=== PATIENT | female | born 1995 | race Caucasian/White ===

== ENCOUNTER 2024-01-03 21:13 | Emergency (ER) | payer MEDICAID, SELFPAY ==
[2024-01-03 21:14] VITALS: BP 171/97; PULSE 92; RESP 16; TEMP 35.9; O2SAT 99; BMI 25.8
--- NOTE | 2024-01-03 21:27 | EX.ED.GENINJ ---
HPI <SAUL Chavez - Last Filed: 01/03/24 21:33> History of Present Illness Chief Complaint: Bite Narrative Narrative: Patient presenting today with a dog bite to her bilateral hands that she got this evening to from her neighbors dog. She reports that their dog was trying to come in her trailer and she tried pushing him out of the door when he bit her hands. Her tetanus is up-to-date. She denies any other injury. The dog is up-to-date with vaccines including rabies. [facility] <SAUL Chavez Last Filed: 01/03/24 21:33> [facility] Medical History (Updated 01/03/24 @ 21:31 by Minoo Paulino) Dog bite Home Medications amoxicillin 875 mg-potassium clavulanate 125 mg tablet 1 tab PO BID #10 tabs 01/03/24 [Rx Last Taken Unknown] Allergy/AdvReac Type Severity Reaction Status Date / Time No Known Allergies Allergy Verified 01/03/24 21:14 ROS <SAUL Chavez Last Filed: 01/03/24 21:33> ROS ED Constitutional Constitutional ED: Denies chills or fever(s) Cardiovascular Cardiovascular: Denies chest pain Respiratory/Chest Respiratory/Chest: Denies cough or dyspnea Gastrointestinal Gastrointestinal: Denies abdominal pain, nausea or vomiting Musculoskeletal Musculoskeletal: Denies arthralgias or myalgias Integumentary Reports other Details: Puncture wounds Neurologic Neurologic: Denies paresthesias EXAM <SAUL Chavez Last Filed: 01/03/24 21:33> Physical Exam Const Vital Signs: 01/03/24 21:14 Temperature 96.7 F L Temperature Source Temporal Pulse Rate 92 Respiratory Rate 16 Blood Pressure 171/97 H Blood Pressure Mean 121 Pulse Ox 99 Oxygen Delivery Method Room Air Positive well nourished, well developed and no apparent distress General Appearance ED: well developed HEENT Reports normocephalic and head/scalp atraumatic Mouth ED: Yes moist mucous membranes normal Eyes PERRL and EOMs intact bilaterally Neck full ROM and supple Chest Wall inspection of chest normal Resp normal respiratory effort and clear to auscultation bilaterally Cardio regular rate and regular rhythm GI soft to palpation, non-tender, non-distended and no masses Back/Spine normal ROM and normal to inspection Extremity normal to inspection and full ROM Extremity Narrative: 2 cm superficial linear laceration to the volar aspect of the right wrist, left second and third fingers have small puncture wounds. Full flexion and extension at the wrist, MCPs, PIP, and DIP joints of the bilateral upper extremities. Neuro oriented x3, CN's II-XII intact bilaterally, moves all extremities, no focal motor deficits and no sensory deficits noted Sensorium / Orientation: awake and alert Psych mental status grossly normal and thought process normal <Dr. Son Haddad MD - Last Filed: 01/03/24 21:38> Physical Exam Const Vital Signs: 01/03/24 21:14 Temperature 96.7 F L Temperature Source Temporal Pulse Rate 92 Respiratory Rate 16 Blood Pressure 171/97 H Blood Pressure Mean 121 Pulse Ox 99 Oxygen Delivery Method Room Air [facility] <SAUL Chavez - Last Filed: 01/03/24 21:33> [facility] Narrative Medical decision making narrative: Patient presenting today due to a dog bite that occurred this evening. She is up-to-date with tetanus. The dog is up-to-date on vaccines. She is well-appearing and in no acute distress. Wounds will be cleaned and bandaged with bacitracin ointment. She will be started on Augmentin. No suture repair is needed as the wounds are superficial. Return instructions given. She will be discharged home in stable condition and is comfortable with plan. <Dr. Son Haddad MD - Last Filed: 01/03/24 21:38> [facility] Narrative Medical decision making narrative: Patient presenting today due to a dog bite that occurred this evening. She is up-to-date with tetanus. The dog is up-to-date on vaccines. She is well-appearing and in no acute distress. Wounds will be cleaned and bandaged with bacitracin ointment. She will be started on Augmentin. No suture repair is needed as the wounds are superficial. Return instructions given. She will be discharged home in stable condition and is comfortable with plan. I have personally performed a face to face assessment of the patient and have reviewed the LISS Note. I performed a substantive portion of the visit including all aspects of the following. My perry findings include: History is patient was bit by dog. Dog immunization up-to-date. She has no allergies to antibiotics. Medical Decision Making patient has multiple scrapes and abrasions to the volar and dorsal surface of the right wrist. She has puncture wound to the left long and ring finger. The extensor commonest tendon is intact. The flexors digitorum superficialis and flexor digitorum profundus are intact. Discrimination is normal. Median, radial and ulnar function intact. Patient has puncture wounds. These will not be sutured. Patient was placed on Augmentin which is the antibiotic of choice for dog bites. Patient has been given appropriate instructions when to return. Other additions or changes: None Discharge Plan Triage Chief Complaint: Bite ED Midlevel Provider: Nahomy Hall ED Provider: Son Haddad Dx/Rx/DC Orders Clinical Impression: Dog bite Instructions: ED Animal Bite (General) Prescriptions: New amoxicillin-pot clavulanate 875-125 mg tablet 1 tab PO BID Qty: 10 0RF Activity Restrictions/Additional Instructions: Take antibiotics as directed, return for any worsening of your symptoms. Disposition Disposition: Home, Self Care
[2024-01-03] MEDS: Amox/Clavulanate 875 MG Tablet PO (21:30)
--- OUTSIDE RECORDS SUMMARY | 2024-01-03 21:38 | XMS RPT_ITS | CCD ---
Author Name Unknown Address [address] [place] [address] Organization [facility] Care Team Providers Care Leadership Development Instructor Name Role Phone NO, PHYSICIAN Primary Care Unavailable EMILIANO ESQUIVEL Attending Rodger leal No, Physician Primary Care Provider Unavailabl e Physician, No Pcp Primary Care Provider UnavailGARRETT Antonio Attending Unavailable PHYSICIAN, NO PCP Primary Care Unavailable PHYSICIAN, NO PCP Primary Care Unavailable MARCELLUS IVORY Attending Unavailable Medications Current Medications Medication Drug Class(es) Dates Sig (Normalized) Sig (Original) ibuprofen 600 mg oral tablet (1 source) Nonsteroidal Anti-inflammatory Drug Start: 09-22-2022 End: 09-29-2022 take 1 tablet by mouth every six hours as needed ibuprofen (ADVIL,MOTRIN) 600 mg tablet Take 1 tablet (600 mg total) by mouth every 6 (six) hours if needed for mild pain or moderate pain for up to 7 days. 28 tablet 0 09/22/2022 09/29/2022 Active metroNIDAZOLE 500 mg oral tablet (1 source) Nitroimidazole Antimicrobial Start: 09-22-2022 End: 09-29-2022 take 1 tablet by mouth twice daily metroNIDAZOLE (FLAGYL) 500 mg tablet Take 1 tablet (500 mg total) by mouth 2 (two) times a day for 7 days. Do not use mouth wash or consume alcohol until 48 hours after last dose 14 each 0 09/22/2022 09/29/2022 Active 12 hr pseudoephedrine hydrochloride 120 mg extended release oral tablet (1 source) alpha-Adrenergic Agonist Start: 09-22-2022 End: 09-22-2023 take 1 tablet by mouth every hour pseudoephedrine (SUDAFED) 120 mg 12 hr tablet Take 1 tablet (120 mg total) by mouth every 12 (twelve) hours. Do not crush, chew, or split. 14 each 0 09/22/2022 09/22/2023 Active Completed/Discontinued Medications Medication Drug Class(es) Dates Sig (Normalized) Sig (Original) acetaminophen 325 mg / HYDROcodone bitartrate 5 mg oral tablet (1 source) Opioid Agonist Start: 08-10-2016 End: 01-18-2021 take 1 tablet by mouth every six hours as needed for pain HYDROcodone-aceta minophen (NORCO) 5-325 mg per tablet TAKE 1 TAB BY MOUTH EVERY 6 HOURS FOR 3 DAYS NEEDED FOR PAIN 0 08/10/2016 01/18/2021 Discontinued cephalexin 500 mg oral capsule (2 sources) Cephalosporin Antibacterial Start: 01-18-2021 End: 01-28-2021 cephALEXin (KEFLEX) capsule 500 mg 1 ml ketorolac tromethamine 30 mg/ml injection (1 source) Nonsteroidal Anti-inflammatory Drug, Cyclooxygenase Inhibitor Start: 09-22-2022 End: 09-22-2022 ketorolac (TORADOL) injection 30 mg lidocaine 40 mg/ml topical cream (1 source) Antiarrhythmic, Amide Local Anesthetic Start: 01-18-2021 End: 01-18-2021 lidocaine (LMX) 4 % cream 50 ml magnesium sulfate 40 mg/ml injection (1 source) Start: 09-22-2022 End: 09-22-2022 magnesium sulfate 2 gram/50 mL (4 %) IVPB 2 g naproxen 500 mg oral tablet (1 source) Nonsteroidal Anti-inflammatory Drug Start: 08-10-2016 End: 01-18-2021 take 1 tablet by mouth twice daily as needed for pain naproxen (NAPROSYN) 500 MG tablet TAKE 1 TAB BY MOUTH TWICE A DAY FOR 10 DAYS NEEDED FOR PAIN 0 08/10/2016 01/18/2021 Discontinued 1000 ml sodium chloride 9 mg/ml injection (1 source) Start: 09-22-2022 End: 09-22-2022 sodium chloride 0.9 % bolus 1,000 mL sulfamethoxazole 800 mg / trimethoprim 160 mg oral tablet (2 sources) Dihydrofolate Reductase Inhibitor Antibacterial, Sulfonamide Antimicrobial Start: 01-18-2021 End: 01-18-2021 sulfamethoxazole- trimethoprim (BACTRIM DS,SEPTRA DS) 800-160 mg per tablet 1 tablet Problems Active Problems Problem Classification Problem Date Documented Date Episodic/Chronic E Codes: Natural/environment (1 source) Bitten by dog, initial encounter; Translations: [Bitten by dog, initial encounter] Onset: 01-11-2023 Episodic Other ear and sense organ disorders (1 source) Bilateral earache; Translations: [Otalgia, bilateral] Episodic Other nutritional; endocrine; and metabolic disorders (1 source) Hypomagnesemia; Translations: [Hypomagnesemia] Chronic Other nutritional; endocrine; and metabolic disorders (1 source) Hypomagnesemia; Translations: [Hypomagnesemia] Onset: 09-22-2022 Chronic Skin and subcutaneous tissue infections (1 source) Abscess; Translations: [Abscess] Episodic Spondylosis; intervertebral disc disorders; other back problems (1 source) Acute low back pain; Translations: [Acute right-sided low back pain without sciatica] Episodic Substance-related disorders (2 sources) Polysubstance abuse ; Translations: [Other psychoactive substance abuse, uncomplicated] Onset: 09-22-2022 Chronic Unclassified (1 source) Patient encounter status; Translations: [Encounter for incision and drainage procedure] Unclassified (1 source) Low back pain, unspecified; Translations: [Low back pain, unspecified] Onset: 09-22-2022 Past or Other Problems Problem Classification Problem Date Documented Da te Episodic/Chronic Abdominal pain (2 sources) Lower abdominal pain; Translations: [Lower abdominal pain, unspecified] Onset: 09-22-2022 Episodic Bacterial infection; unspecified site (1 source) Other specified bacterial agents as the cause of diseases classified elsewhere; Translations: [Other specified bacterial agents as the cause of diseases classified elsewhere] Onset: 09-22-2022 Episodic Inflammatory diseases of female pelvic organs (2 sources) Bacterial vaginosis; Translations: [Acute vaginitis] Onset: 09-22-2022 Episodic Other ear and sense organ disorders (1 source) Otalgia, bilateral; Translations: [Otalgia, bilateral] Onset: 09-22-2022 Episodic Results Test Name Value Interpretation Reference Range Facil ity Vital Signs Date Time Vital Sign Value Performing Clinician Marifer aguilar 09-22-2022 22:15-0500 Diastolic blood pressure 86 mm[Hg] Garrett Becerra MD Work Phone: [facility] 09-22-2022 22:15-0500 Heart rate 85 /min Garrett Becerra MD Work Phone: [facility] 09-22-2022 22:15-0500 SaO2% (BldA) [Mass fraction] 100 % Garrett Becerra MD Work Phone: [facility] 09-22-2022 22:15-0500 Systolic blood pressure 127 mm[Hg] Garrett Becerra MD Work Phone: [facility] 09-22-2022 20:32-0500 Respiratory rate 17 /min Garrett Becerra MD Work Phone: [facility] 09-22-2022 19:11-0500 Body height 175.3 cm Garrett Becerra MD Work Phone: [facility] 09-22-2022 19:11-0500 Body mass index (BMI) [Ratio] 20.67 kg/m2 Garrett Becerra MD Work Phone: [facility] 09-22-2022 19:11-0500 Body weight 63.5 kg Garrett Becerra MD Work Phone: [facility] 09-22-2022 17:24-0500 Body temperature 98.6 [degF] Garrett Becerra MD Work Phone: [facility] 01-18-2021 20:05-0500 BMI (Body Mass Index) 19.37 kg/m2 [facility] 01-18-2021 20:05-0500 Body Temperature 98.2 [degF] [facility] 01-18-2021 20:05-0500 Body [facility] 61.24 [facility] 01-18-2021 20:05-0500 BP Diastolic 91 mm[Hg] [facility] 01-18-2021 20:05-0500 BP Systolic 138 mm[Hg] [facility] 01-18-2021 20:05-0500 Height 177.8 cm Emiliano Esquivel [facility] 01-18-2021 20:05-0500 Pulse (Heart Rate) 100 /min Emiliano Esquivel [facility] 01-18-2021 20:05-0500 Pulse Oximetry 99 % Emiliano Esquivel [facility] 01-18-2021 20:05-0500 Respiratory Rate 18 /min Emilianopablo Esquivel [facility] Encounters Encounter Date Encounter Type Care Provider Facility Start: 01-11-2023 End: 01-12-2023 Emergency department patient visit NO PCP PHYSICIAN [facility] Start: 09-22-2022 End: 09-23-2022 Emergency department patient visit GARRETT BECERRA [facility] Start: 09-22-2022 End: 09-22-2022 Emergency department patient visit Garrett Becerra MD Work Phone: [facility] Emergency Room Procedures Date Procedure Procedure Detail Performing Clinician Start: 09-22-2022 Culture bacterial quanttative colony count urine Arben HUGHES Work Phone: Start: 09-22-2022 Drug tst prsmv instr mnt chem analyzers pr date Garrett Becerra MD Work Phone: Start: 09-22-2022 Ct abdomen & pelvis w/o contrast material Arben HUGHES Work Phone: Start: 09-22-2022 CBC W Auto Different ial panel - Blood Arben HUGHES Work Phone: Start: 09-22-2022 Comprehensive metabo lic panel Arben HUGHES Work Phone: Start: 09-22-2022 Ethanol [Mass/volume ] in Serum or Plasma Garrett Becerra MD Work Phone: Start: 09-22-2022 Iaadiadoo trichomona s vaginalis Arben HUGHES Work Phone: Plan of Treatment Date Care Activity Detail Author Start: 03-27-2024 DTaP,Tdap,and Td Vaccines (2 - Td or Tdap) DTaP,Tdap,and Td Vaccines (2 - Td or Tdap) [facility] Start: 09-22-2022 Adolescent depression screening assessment Depression Screening [facility] Start: 09-22-2022 Hepatitis C screening Hepatitis C Screening [facility] Start: 09-22-2022 HIV screening HIV Screening [facility] Start: 09-22-2022 Social Influencers of Health Screening Social Influencers of Health Screening [facility] Start: 07-18-2022 Influenza vaccination Influenza Vaccine (#1) [facility] Start: 01-22-2021 End: 01-22-2021 Office Visit 01/22/2021 Office Visit Primary Care Keturah Whitley MD [address] [place] [address] [phone] [facility] [place] Start: 07-18-2020 Influenza vaccination given Sequential Influenza Vaccine (#1) [facility] Start: 01-15-2017 Screening for malignant neoplasm of cervix Cervical Cancer Screening: Pap Smear [facility] Start: 01-15-2014 Hepatitis C antibody, confirmatory test Hepatitis C Screening [facility] Start: 2012 COVID-19 Vaccine (1 of 2) COVID-19 Vaccine (1 of 2) [facility] Start: 01-15-2011 HIV screening HIV Screening [facility] Start: 2008 Adolescent depression screening assessment Depression Screening (PHQ9) [facility] Start: 01-15-2007 HPV Vaccines (1 - 2-dose series) HPV Vaccines (1 - 2-dose series) [facility] Start: 01-15-2007 Vaccination for human papillomavirus HPV Vaccines (1 - 2-dose series) [facility] Start: 01-15-1999 History and physical examination, annual for health maintenance Wellness Visit [facility] Start: 1996 COVID-19 Vaccine (#1) COVID-19 Vaccine (#1) [facility] Start: 1996 Hepatitis B Vaccines (1 of 3 - 3-dose series) Hepatitis B Vaccines (1 of 3 - 3-dose series) [facility] Start: 1996 Screening for malignant neoplasm of cervix Pap Smear [facility] Start: 1996 Tetanus vaccination Tetanus: Every 10yrs [facility] Bacteria identified in Urine by Culture Culture urine Microbiology STAT 09/22/2022 8:[address] [facility] End: 09-22-2022 Neisseria gonorrhoeae DNA [Presence] in Urine by MOE with probe detection [facility] Work Phone: Immunizations Immunization Date Immunization Notes Care Provider Filipe jade 08-05-2013 influenza virus vacc ine, unspecified formulation Garrett Becerra MD Work Phone: [facility] Payers Date Payer Category Payer Unknown [id number] 1995 Unknown [id number] Social History Date Type Detail Facility Start: 01-18-2021 End: 09-22-2022 Tobacco smoking status NHIS Never smoker [facility] Start: 01-18-2021 Tobacco use and exposure Current use r [facility] History of tobacco use Chews Tobacco [facility] Start: 01-18-2021 Alcohol intake Current non-dr wrinkle chaser of alcohol (finding) [facility] Start: 1995 Sex Assigned At Not on file [facility] Start: 09-12-2022 End: 09-22-2022 Exposure to SARS-CoV-2 (event) Not sure [facility] Start: 09-22-2022 Tobacco use and exposure Smokeless t obacco non-user [facility] Start: 09-22-2022 Alcohol intake Lifetime non-d johnna (finding) [facility] History of Present illness Narrative 09-22-2022 Garrett Becerra MD - 09/22/2022 5:20 PM EST Note Date & Type Note Facility 09-22-2022 History of Presen t illness Narrative [facility] Emergency Department Note History of Present Illness Ho Simms is a 27 y.o. female presenting for headache, bilateral ear pain, neck pain, back pain. Duration 3 days. States she was carrying a heavy backpack, and when she went to put it down she began having pain. Pain has been constant and severe. In triage, she apparently reported flank pain and abdominal pain with history of kidney stones. She does acknowledge history of kidney stones and says this pain is more severe. She acknowledges pain to the right lower back wrapping around to the left lower abdomen. She denies fevers or chills. She denies cough or other URI symptoms. She denies nausea, vomiting, diarrhea. She denies any urinary symptoms. Prior History History reviewed. No pertinent past medical history. History reviewed. No pertinent surgical history. No family history on file. Social History Tobacco Use Smoking status: Never Smokeless tobacco: Never Vaping Use Vaping Use: Never used Substance Use Topics Alcohol use: Never Drug use: Never Review of Systems Constitutional: [No fever, no chills, no fatigue] ENT: [No sore throat, no congestion] Eyes: [No visual disturbance, no eye pain] Cardiovascular: [No chest pain, no palpitations] Pulmonary: [No dyspnea, no cough] GI: [No abdominal pain, no nausea, no vomiting, no diarrhea, no bloody stools] : [No difficulty voiding, no hematuria, no dysuria, no urgency] Skin: [No rash, no wounds, no change in color] Musculoskeletal: [No back pain, no neck pain, no injury to extremities] Hematologic: [No abnormal bleeding/bruising] Neurologic: [No headache, no dizziness, no focal weakness, no numbness, no tingling] Physical Exam ED Triage Vitals [09/22/22 1724] Temp Heart Rate Resp BP 37 C (98.6 F) 100 20 (!) 147/102 SpO2 Temp Source Heart Rate Source Patient Position 100 % Oral -- -- BP Location FiO2 (%) -- -- Body mass index is 20.67 kg/m . Constitutional: [Awake and alert, well nourished, non-toxic] Head: [Normocephalic, atraumatic] Eyes: [EOMI, Pupils equal, no scleral icterus] Ears: [Hearing grossly intact, no external deformities] Nose: [Normal in appearance, no rhinorrhea or epistaxis] Mouth: [Moist mucous membranes, oropharynx clear without exudates] Neck: [Supple, trachea midline, no rigidity] Cardiovascular: [Regular rate and rhythm, no murmurs/rubs/gallops, normal peripheral pulses] Respiratory: [Normal respiratory effort, lungs clear bilaterally, no wheezes/rales/rhonchi] Gastrointestinal: [Abdomen soft, non-tender, non-distended] Musculoskeletal: [No obvious deformities, no peripheral edema/swelling] Neurologic: [Awake, alert, answers questions appropriately without slurred speech. GCS 15. No focal motor or sensory deficits.] Skin: [Warm, dry. No rash or wound. No pallor, cyanosis, or jaundice.] Psychiatric: [Normal mood and affect] Results & Interpretations Pulse Ox Interpretation: Oxygen saturation is 100% which is normal. Interpreted by myself. Labs Reviewed RAPID BACTERIAL VAGINOSIS SCREEN - Abnormal Result Value Bacterial Vaginosis Screen Positive (*) URINALYSIS WITH MICROSCOPIC REFLEX CULTURE - Abnormal Color, Urine Yellow Clarity, Urine Hazy (*) Specific Hulen Urine 1.015 pH, Urine 6.0 Leukocytes, Urine 25 (*) Nitrite, Urine Negative Protein, Urine Negative Glucose, Urine Normal Ketones, Urine 5 (*) Urobilinogen, Urine Normal Blood, Urine 2+ (*) Bilirubin, Urine Negative RBC, Urine 4 WBC, Urine 4 Bacteria, Urine Rare (*) Squamous Epithelial, Urine Many (*) Mucus, UA Rare (*) BASIC METABOLIC PANEL - Abnormal Sodium 131 (*) Potassium 3.8 Chloride 98 CO2 26 Anion Gap 7 Glucose 137 (*) BUN 10 Creatinine 0.79 eGFR 106 BUN/Creatinine Ratio 12.7 Calcium 8.9 MAGNESIUM - Abnormal Magnesium 1.5 (*) CBC WITH AUTO DIFFERENTIAL - Abnormal WBC 6.7 RBC 4.87 Hemoglobin 14.3 Hematocrit 41.6 MCV 85.4 MCH 29.4 MCHC 34.4 RDW 11.9 Platelets 199 MPV 9.6 Neutrophils Relative 82.1 (*) Lymphocytes Relative 4.6 (*) Monocytes Relative 12.0 Eosinophils Relative 0.4 Basophils Relative 0.6 Immature Granulocytes Relative 0.3 Neutrophils Absolute 5.53 Lymphocytes Absolute 0.31 (*) Monocytes Absolute 0.81 Eosinophils Absolute 0.03 Basophils Absolute 0.04 Immature Granulocytes Absolute 0.02 DRUG ABUSE SCREEN 8A PANEL, URINE - Abnormal Amphetamine Screen, Ur Detected (*) Barbiturate Screen, Ur Not Detected Benzodiazepine Screen, Ur Not Detected Cocaine Screen, Ur Detected (*) Opiate Screen, Ur Not Detected Cannabinoid (THC) Screen, Ur Detected (*) Oxycodone Screen, Ur Not Detected Methadone Screen, Urine Not Detected Narrative: The following detection limits are used for the urine drugs of abuse: Amphetamine 1000 ng/mL Barbiturate 200 ng/mL Benzodiazepine 200 ng/mL Cannabinoids 50 ng/mL Cocaine 300 ng/mL Methadone 300 ng/mL Opiates 300 ng/mL Oxycodone 100 ng/mL Testing is for screening purposes only and should not be used in non-medical determinations. Confirmatory testing is available on request. TRICHOMONAS VAGINALIS RNA, QUALITATIVE - Normal Trichomonas Negative LIPASE - Normal Lipase 35 HEPATIC FUNCTION PANEL - Normal Total Protein 6.8 Albumin 4.4 Total Bilirubin 0.4 Bilirubin, Direct 0.1 Bilirubin, Indirect 0.3 ALT (SGPT) 16 AST (SGOT) 19 Alkaline Phosphatase 48 HCG, SERUM, QUALITATIVE - Normal hCG Qual Negative ETHANOL - Normal Ethanol Level <10 CHLAMYDIA TRACHOMATIS AND NEISSERIA GONORRHOEAE MOLECULAR STUDY, UROGENITAL CULTURE URINE CBC AND DIFFERENTIAL Narrative: The following orders were created for panel order CBC and differential. Procedure Abnormality Status --------- ------ CBC auto differential[[id number]] Abnormal Final result Please view results for these tests on the individual orders. CT Abdomen Pelvis wo Contrast Final Result Nonobstructive constipation Hyperdense material layering within the stomach, correlate with any ingested material whether contrast or radiodense MILK OF MAGNESIA or other substance, this is indeterminate Bilateral kidneys demonstrate no hydronephrosis or stones. Negative for free fluid or free air. -------- FINAL REPORT -------- Dictated By: Caleb Enriquez Dictated Date: 09/22/2022 19:07 Assigned Physician: Caleb Enriquez Reviewed and Electronically Signed By: Caleb Enriquez Signed Date: 09/22/2022 19:10 Workstation ID: [id number] Transcribed By: Self Edit Transcribed Date: 09/22/2022 19:07 I have reviewed the results of labs, imaging, and other diagnostic studies performed during this evaluation. All imaging independently reviewed by myself, and I agree with the radiologist interpretation. ED Course & Medical Decision Making Prior medical records: Reviewed Vitals Trend: Vitals: 09/22/22 19109/22/[id number]/22/[id number]/22/225 BP: (!) 137/98 129/82 127/86 Pulse: 86 96 85 Resp: 21 17 Temp: TempSrc: SpO2: 100% 97% 100% Weight: 63.5 kg (140 lb) Height: 1.753 m (69 ) ED Administered Meds: Medications sodium chloride 0.9 % bolus 1,000 mL (0 mL intravenous Stopped 09/22/222220) ketorolac (TORADOL) injection 30 mg (30 mg intravenous Given 09/22/221918) magnesium sulfate 2 gram/50 mL (4 %) IVPB 2 g (0 g intravenous Stopped 09/22/222220) Procedures: None Critical Care Time: None MDM: Upon triage, patient was documented as chief complaint of abdominal pain. On my interview, she first complained of pain in both of her ears, then pain radiating down her neck and back. She does acknowledge pain to the right lower back and indicates that it wraps around the left side of her back into the left lower quadrant of her abdomen. I noticed that pelvic swabs have been ordered prior to my assessment, and queried the patient about any vaginal discharge, itch, odor or abnormal bleeding. She denies these. According to triage provider, she or her mother expressed some concern for STI in triage. On labs, magnesium is low at 1.5. Magnesium sulfate ordered. She was also given fluid bolus and IV Toradol. She did seem to have an improvement of her pain on reassessment. Urine drug screen is positive for amphetamine, cocaine, cannabinoids. She is positive for bacterial vaginosis as well. CT shows nonobstructive constipation, radiodense material in the stomach which likely relates to OTC milk of magnesia use. Otherwise no acute findings. I did not feel that hospitalization was indicated, and patient was comfortable with plan for discharge home. Prescribed Flagyl for bacterial vaginosis. Prescribed Sudafed as she continues to complain of some pressure in both ears and also has some sinus congestion. Prescribed Motrin to take as needed for pain. Discussed return precautions. I have strongly advised her to establish primary care for follow-up. Disposition Discharge ED Prescriptions Medication Sig Dispense Start Date End Date Auth. Provider metroNIDAZOLE (FLAGYL) 500 mg tablet Take 1 tablet (500 mg total) by mouth 2 (two) times a day for 7 days. Do not use mouth wash or consume alcohol until 48 hours after last dose 14 each 09/22/2022 09/29/2022 Garrett Becerra MD pseudoephedrine (SUDAFED) 120 mg 12 hr tablet Take 1 tablet (120 mg total) by mouth every 12 (twelve) hours. Do not crush, chew, or split. 14 each 09/22/2022 09/22/2023 Garrett Becerra MD ibuprofen (ADVIL,MOTRIN) 600 mg tablet Take 1 tablet (600 mg total) by mouth every 6 (six) hours if needed for mild pain or moderate pain for up to 7 days. 28 tablet 09/22/2022 09/29/2022 Garrett Becerra MD Impression Final diagnoses: [F19.10] Polysubstance abuse (CMS/[facility]) [M54.50] Acute right-sided low back pain without sciatica [R10.30] Lower abdominal pain [N76.0, B96.89] Bacterial vaginosis [H92.03] Otalgia of both ears [E83.42] Hypomagnesemia Garrett Becerra MD 09/22/22 1838 Garrett Becerra MD 09/22/22 2245 documented in this encounter [facility] Evaluation note Note Date & Type Note Facility documented in this encounter [facility] Discharge instructions Attachments Note Date & Type Note Facility Hospital Discharge instructions The following attachments cannot be sent through Care Everywhere.Substance Use Disorder ([place])Bacterial Vaginosis ([place]an)documented in this encounter 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 Advance Directives and Livin g Will 01/18/2021 8:38 PM Hospital Course Note EMERGENCY DEPARTMENT DISCHAR GE SUMMARY PATIENT NAME:HO SIMMS MRN: ([id number] AGE: 23 Years SEX: Female PHONE:[phone] DOS: 06/08/2018 4:31 PM : 1995 ATTENDING PHYSICIAN:Alice Reese CNP PCP: Physician, PCP Unknown CHIEF COMPLAINT: Head Lice Allergies NKA Problems Active MRSA infection (methicillin-resistant Staphylococcus aureus) (06/17/2014) No current problems or disability DISCHARGE DIAGNOSIS: DISCHARGE INSTRUCTIONS: Blank Instruction (Custom); Lice, Adult ED PHYSICIAN DOCUMENTATION: DISPOSITION: Time of Departure From ER 06/08/2018 17:31 Discharge/Transfer From ER Home 01 MEDICATION LISTS: CURRENT MEDICATION LIST etonogestrel (Implanon 68 mg subcutaneous implant) 1 Each Subcutaneous One Time Only. ibuprofen spinosad topical (spinosad topical 0.9% suspension) 1 Application Topical One Time Only. Apply to dry scalp and hair. Wash off after 10 minutes.. Refills: 0. MEDICATIONS GIVEN DURING MEDICAL VISIT None LAB RESULTS: RADIOLOGY: FOLLOW UP: FOLLOW-UP LISS (more content not included)... Note EMERGENCY DEPARTMENT DISCHAR GE SUMMARY PATIENT NAME:HO SIMMS MRN: [id number] AGE: 24 Years SEX: Female PHONE:[phone] DOS: 05/07/2019 12:15 PM : 1995 ATTENDING PHYSICIAN:Yohannes Carrion DO PCP: Physician, No PCP CHIEF COMPLAINT: social issues Allergies NKA Problems Active No current problems or disability DISCHARGE DIAGNOSIS: DISCHARGE INSTRUCTIONS: Work Release (CO-W) [place] (Custom); Blank Instruction (CUSTOM) ED PHYSICIAN DOCUMENTATION: History of Present Illness The patient is a 24-year-old female with no significant medical problems who presents for evaluation of her Nexplanon device. The patient states that she had this placed 3 years ago. She reports about 3 days ago at work she lifted something and the edge of it hit her arm. She was concerned that it may have moved it or broke it. [facility] an appointment with [facility] for May 11 to have it removed but was concerned and wanted it evaluated today. Social history: Nonsmoker Medical De (more content not included)... Discharge Instructions * Discharge Instr - Care Coordination* Priyanka Banda RN - 01/18/2021 8:57 PM EST We made a new patient appointment for you on FridayJanuary 22 at 11:00 am with Keturah Whitley MD Family Medicine [facility] [place] [address] [place] [id number] Please arrived 15 minute early, If your unable to make the appointment, please call and reschedule. * Additional Instructions* Emiliano Esquivel MD - 01/18/2021 We made a new patient appointment for you on FridayJanuary 22 at 11:00 am with Misael Amaro Medicine [facility] [place] [address] [id number] Please arrived 15 minute early, If your unable to make the appointment, please call and reschedule. Please follow up with your family doctor or one of your choosing. You may find a provider through the [facility] Physician Referral Service by calling [phone]) or by visiting [email or web address] Thank you for allowing us the opportunity to provide you with Emergency Care today. Follow up as discussed during your stay with your doctor or referral. This information is included in your discharge paperwork. Appropriate followup is essential in your continued care after today's visit. If you had any diagnostic studies ( Labs or Xray's, CAT scan, Ultrasound ) have your PCP (Primary Care Physician) review them with you since there may be results that require further follow up or investigation. Return to the Emergency Department at any point with worsening condition, change in symptoms, new symptoms or concerns. The physician and staff of the Emergency Department would like to thank you for choosing our facility for your health care needs. Our goal is to provide exceptional service. You may be receiving a survey in the mail following your visit. Because your feedback is very important to us, we hope you will take the time to complete and return the survey. If for any reason, you feel that you cannot rateus VERY GOOD or 5 for the service you received today, please let us know prior to your discharge. We are here 24 hours a day, 7 days a week, and are always here for you. * Attachments The following attachments cannot be sent through Care Everywhere. * Abscess: Skin ([place]) documented in this encounter Assessments Diagnosis Abscess- Primary Cellulitis and abscess of unspecified site Encounter for incision and drainage procedure Additional Source Comments INFORMATION SOURCE (unrecogn ized section and content) DATE CREATED AUTHOR AUTHOR'S ORGANIZ ATION 01/25/2021 [facility] DATE CREATED AUTHOR AUTHOR'S ORGANIZ ATION 01/12/2023 [facility] Reason for Visit (unrecogniz ed section and content) Reason Comments Abdominal Pain Left flank pain for few days urinary frequency Faith Draper RN - 01/18/2021 9:29 PM Melissa Kemp RN - 01/18/2021 8:03 PM EST ED Notes (unrecognized secti on and content) Wound covered with telfa, bandaid, and coban. Spoke to patient about wound care, she verbalizes understanding. Veralizes understanding of treatment and follow up care including antibiotic use. States has had multiple abscesses and states had on the leg from recent tattoo. Pt reports abscess to left arm. Pt with red raised area to left elbow and redness around area. documented in this encounter Ordered Prescriptions (unrec ognized section and content) Scheduled Active and Recently Administ ered Medications (unrecognized section and content) Care Teams (unrecognized sec tion and content) FOR RECORDS PERTAINING TO PATIENTS WHO ARE OR HAVE BEEN ENROLLED IN A CHEMICAL DEPENDENCY/SUBSTANCEABUSE PROGRAM, SOME INFORMATION MAY BE OMITTED. This clinical summary was aggregated from multiple sources. Caution should be exercised in using it in the provision of clinical care. This summary normalizes information from multiple sources, and as a consequence, information in this document may materially change the coding, format and clinical context of patient data. In addition, data may be omitted in some cases. CLINICAL DECISIONS SHOULD BE BASED ON THE PRIMARY CLINICAL RECORDS. [facility] [employer] provides no warranty or guarantee of the accuracy or completeness of information in this document.
[2024-01-03 21:40] VITALS: BP 138/98; PULSE 78; RESP 16; TEMP 35.9; O2SAT 99
== END 2024-01-03 21:41 | disposition home or self-care (01) ==
LOC: ED 21:35
PROVIDERS: Emergency Provider Emergency Medicine; Visit Provider Emergency Medicine
DX: S60.811A Abrasion of right wrist, initial encounter (principal); S61.233A Puncture wound without foreign body of left middle finger without damage to nail, initial encounter; S61.231A Puncture wound without foreign body of left index finger without damage to nail, initial encounter; W54.0XXA Bitten by dog, initial encounter; Y92.029 Unspecified place in mobile home as the place of occurrence of the external cause
CPT/HCPCS: 99282

== ENCOUNTER 2025-08-20 23:35 | Outpatient (CLI) | payer BC, SELFPAY ==
--- OUTSIDE RECORDS SUMMARY | 2025-08-20 23:52 | XMS RPT_ITS | CCD ---
Author Organization [facility] Informreplaced by [facility] [employer]PERATIONS INSPECTOR [facility] Care Team Providers Care Llama Farmer Name Role Phone NO, PHYSICIAN Primary Care Unavailable EMILIANO ESQUIVEL Attending Rodger leal No, Physician Primary Care Provider Unavailabl e Physician, No Pcp Primary Care Provider UnavailGARRETT Antonio Attending Unavailable PHYSICIAN, NO PCP Primary Care Unavailable PHYSICIAN, NO PCP Primary Care Unavailable MARCELLUS IVORY Attending Unavailable DARLEEN, García Primary Care Unavailable Son Haddad Attending Unavailable Medications Current Medications Medication Drug Class(es) Dates Sig (Normalized) Sig (Original) amoxicillin 875 mg / clavulanate 125 mg oral tablet (1 source) Penicillin-class Antibacterial Start: 01-03-2024 take 1 tablet by mouth twice daily Amoxicillin-Pot Clavulanate Active 1 TABLET PO TWICE A DAY January 03, 2024 12:00am ibuprofen 600 mg oral tablet (1 source) [...] DS) 800-160 mg per tablet 1 tablet Start: 01-18-2021 End: 01-28-2021 take 1 tablet by mouth twice daily sulfamethoxazole-trimethoprim (BACTRIM DS,SEPTRA DS) 800-160 mg per tablet Take 1 (one) tablet by mouth 2 (two) times a day for 20 doses . 20 tablet 0 01/18/2021 01/28/2021 Active traMADol hydrochloride 50 mg oral tablet (1 source) Opioid Agonist Start: 08-14-2016 End: 01-18-2021 take 1 tablet by mouth every six hours as needed traMADol (ULTRAM) 50 mg tablet Take 1 tablet (50 mg total) by mouth every 6 (six) hours as needed for pain. 20 tablet 0 08/14/2016 01/18/2021 Discontinued Problems Active Problems Problem Classification Problem Date Documented Date Episodic/Chronic E Codes: Natural/environment (2 sources) Bitten by dog, initial encounter; Translations: [Dog bite - wound] Onset: 01-11-2023 01-03-2024 Episodic Open wounds of extremities (1 source) Open bite of right hand, initial encounter; Translations: [Open bite of right hand, initial encounter] Onset: 01-06-2024 Episodic Other ear and sense organ disorders [...] Results Test Name Value Interpretation Reference Range Facility Emergency Department Summary on 01-03-2024 Emergency Department Summary [facility] Medical Records Department [address] [place] [address] Emergency Department Summary 01/03/24 MR#: [id number] Acct: [id number] Name: HO SIMMS Rep #: [id number] : 1995 28 From: Son Haddad MD PCP: Status:REG ER Location: ED HPI History of Present Illness Chief Complaint: Bite Narrative Narrative: Patient presenting today with a dog bite to her bilateral hands that she got this evening to from her neighbors dog. She reports that their dog was trying to come in her trailer and she tried pushing him out of the door when he bit her hands. Her tetanus is up-to-date. She denies any other injury. The dog is up-to-date with vaccines including rabies. [facility] Medical History (Updated 01/03/24 @ 21:31 by Minoo Paulino) Dog bite Home Medications amoxicillin 875 mg-potassium clavulanate 125 mg tablet 1 tab PO BID #10 tabs 01/03/24 [Rx Last Taken Unknown] Allergy/AdvReac Type Severity Reaction Status Date / Time No Known Allergies Allergy Verified 01/03/24 21:14 ROS ROS ED Constitutional Constitutional ED: Denies chills or fever(s) Cardiovascular Cardiovascular: Denies chest pain Respiratory/Chest Respiratory/Chest: Denies cough or dyspnea Gastrointestinal Gastrointestinal: Denies abdominal pain, nausea or vomiting Musculoskeletal Musculoskeletal: Denies arthralgias or myalgias Integumentary Reports other Details: Puncture wounds Neurologic Neurologic: Denies paresthesias EXAM Physical Exam Const Vital Signs: 01/03/24 21:14 Temperature 96.7 F L Temperature Source Temporal Pulse Rate 92 Respiratory Rate 16 Blood Pressure 171/97 H Blood Pressure Mean 121 Pulse Ox 99 Oxygen Delivery Method Room Air Positive well nourished, well developed and no apparent distress General Appearance ED: well developed HEENT Reports normocephalic and head/scalp atraumatic Mouth ED: Yes moist mucous membranes normal Eyes PERRL and EOMs intact bilaterally Neck full ROM and supple Chest Wall inspection of chest normal Resp normal respiratory effort and clear to auscultation bilaterally Cardio regular rate and regular rhythm GI soft to palpation, non-tender, non-distended and no masses Back/Spine normal ROM and normal to inspection Extremity normal to inspection and full ROM Extremity Narrative: 2 cm superficial linear laceration to the volar aspect of the right wrist, left second and third fingers have small puncture wounds. Full flexion and extension at the wrist, MCPs, PIP, and DIP joints of the bilateral upper extremities. Neuro oriented x3, CN's II-XII intact bilaterally, moves all extremities, no focal motor deficits and no sensory deficits noted Sensorium / Orientation: awake and alert Psych mental status grossly normal and thought process normal Physical Exam Const Vital Signs: 01/03/24 21:14 Temperature 96.7 F L Temperature Source Temporal Pulse Rate 92 Respiratory Rate 16 Blood Pressure 171/97 H Blood Pressure Mean 121 Pulse Ox 99 Oxygen Delivery Method Room Air HAWA SHAIKH MDM Narrative Medical decision making narrative: Patient presenting today due to a dog bite that occurred this evening. She is up-to-date with tetanus. The dog is up-to-date on vaccines. She is well-appearing and in no acute distress. Wounds will be cleaned and bandaged with bacitracin ointment. She will be started on Augmentin. No suture repair is needed as the wounds are superficial. Return instructions given. She will be discharged home in stable condition and is comfortable with plan. MDM MDM Narrative Medical decision making narrative: Patient presenting today due to a dog bite that occurred this evening. She is up-to-date with tetanus. The dog is up-to-date on vaccines. She is well-appearing and in no acute distress. Wounds will be cleaned and bandaged with bacitracin ointment. She will be started on Augmentin. No suture repair is needed as the wounds are superficial. Return instructions given. She will be discharged home in stable condition and is comfortable with plan. I have personally performed a face to face assessment of the patient and have reviewed the LISS Note. I performed a substantive portion of the visit including all aspects of the following. My perry findings include: History is patient was bit by dog. Dog immunization up-to-date. She has no allergies to antibiotics. Medical Decision Making patient has multiple scrapes and abrasions to the volar and dorsal surface of the right wrist. She has puncture wound to the left long and ring finger. The extensor commonest tendon is intact. The flexors digitorum superficialis and flexor digitorum profundus are intact. Discrimination is normal. Median, radial and ulnar (more content not included)... Normal [facility] Bacterial sialidase Ql (Unsp spec)on 09-22-2022 T. vaginalis Ag IA Ql (Genital specimen) Negative Normal Negative [facility] Comment on above: Order Comment: Self swab Performed By: #### 4 1477-1 #### [facility] [address] [place] [address] Bacterial sialidase Ql (Unsp spec)Ordered By: Morgan Patel on 09-22-2022 Interpretation and review of laboratory results Abnormal [employer] Basic metabolic 2000 panelon 09-22-2022 Anion gap [Moles/Vol] 7 mmol/L 6 - 18 nVoq Calcium [Mass/Vol] 8.9 mg/dL 8.9 - 10. 3 mg/dL nVoq Chloride [Moles/Vol] 98 mmol/L 98 - 10 7 mmol/L nVoq CO2 [Moles/Vol] 26 mmol/L 22 - 32 mmol/L nVoq Creatinine [Mass/Vol] 0.79 mg/dL 0.60 - 1.30 mg/dL nVoq GFR/1.73 sq M.predicted MDRD (S/P/Bld) [Vol rate/Area] 106 mL/min/{1.73_m2} - PINF nVoq Comment on above: Effective August 25, 2022, calculation based on the Chronic Kidney Disease Epidemiology Collaboration (CKD-EPI) equation refit without adjustment for race. Glucose [Mass/Vol] 137 mg/dL High 70 - 99 [facility] Potassium [Moles/Vol] 3.8 mmol/L 3.6 - 5.1 mmol/L nVoq Sodium [Moles/Vol] 131 mmol/L Low 136 - 145 mmol/L nVoq Urea nitrogen [Mass/Vol] 10 mg/dL 8 - 20 mg/dL nVoq Urea nitrogen/Creatinine [Mass ratio] 12.7 mg/mg 12.0 - 20.0 nVoq Beta HCG ( test) Ql on 09-22-2022 HCG ( test) Ql Negative Negative nVoq Interpretation and review of laboratory results Normal [employer] CT ABDOMEN PELVIS WO CONTRAS Ton 09-22-2022 CT ABDOMEN PELVIS WO CONTRAST EXAMINATION TYPE: CT ABDOMEN PELVIS WO CONTRAST DATE OF EXAM: 09/22/2022 6:52 PM COMPARISON: 08/10/2016 HISTORY: Acute abdominal pain, flank pain, 3 days FINDINGS: Lung bases are clear. Study is limited without IV contrast. The heart size is normal. Negative for free fluid or free air. Some hyperdense material is present within the stomach dependently and this may represent ingested material, correlate clinically. Bilateral kidneys demonstrate no hydronephrosis or stones. Nonobstructive constipation. Liver, spleen, gallbladder, pancreas and adrenal glands are within normal limits. Likely normal appendix medial to the cecum. Negative for lytic or blastic lesion. IMPRESSION: Nonobstructive constipation Hyperdense material layering within the [...] By: Self Edit Transcribed Date: 09/22/2022 19:[address] [facility] [address] Pelvis limited WO contras ton 09-22-2022 Nonobstructive constipation Hyperdense material layering within the stomach, correlate with any ingested material whether contrast or radiodense MILK OF MAGNESIA or other substance, this is indeterminate Bilateral kidneys demonstrate no hydronephrosis or stones. Negative for free fluid or free air. -------- FINAL REPORT -------- Dictated By: Calbe Enriquez Dictated Date: 09/22/2022 19:07 Assigned Physician: Caleb Enriquez Reviewed and Electronically Signed By: Caleb Enriquez Signed Date: 09/22/2022 19:10 Workstation ID: [id number] Transcribed By: Self Edit Transcribed Date: 09/22/2022 19:07 POWERSCRIBE EXAMINATION TYPE: CT ABDOMEN PELVIS WO CONTRAST DATE OF EXAM: 09/22/2022 6:52 PM COMPARISON: 08/10/2016 HISTORY: Acute abdominal pain, flank pain, 3 days FINDINGS: Lung bases are clear. Study is limited without IV contrast. The heart size is normal. Negative for free fluid or free air. Some hyperdense material is present within the stomach dependently and this may represent ingested material, correlate clinically. Bilateral kidneys demonstrate no hydronephrosis or stones. Nonobstructive constipation. Liver, spleen, gallbladder, pancreas and adrenal glands are within normal limits. Likely normal appendix medial to the cecum. Negative for lytic or blastic lesion. POWERSCRIBE Caleb Enriquez MD - 09/22/2022 EXAMINATION TYPE: CT ABDOMEN PELVIS WO CONTRAST DATE OF EXAM: 09/22/2022 6:52 PM COMPARISON: 08/10/2016 HISTORY: Acute abdominal pain, flank pain, 3 days FINDINGS: Lung bases are clear. Study is limited without IV contrast. The heart size is normal. Negative for free fluid or free air. Some hyperdense material is present within the stomach dependently and this may represent ingested material, correlate clinically. Bilateral kidneys demonstrate no hydronephrosis or stones. Nonobstructive constipation. Liver, spleen, gallbladder, pancreas and adrenal glands are within normal limits. Likely normal appendix medial to the cecum. Negative for lytic or blastic lesion. IMPRESSION: Nonobstructive constipation Hyperdense material layering within the [...] By: Self Edit Transcribed Date: 09/22/2022 19:07 nVoq Radiology Study observation (narrative) nVoq CT Pelvis limited WO contras tOrdered By: Caleb Enriquez on 09-22-2022 nVoq Work Phone: Drugs identified Screen Nom (U)on 09-22-2022 Amphetamine Screen, Ur Detected Abnormal Not Detected [facility] Comment on above: Order Comment: The f ollowing detection limits are used for the urine drugs of abuse: Amphetamine 1000 ng/mL Barbiturate 200 ng/mL Benzodiazepine 200 ng/mL Cannabinoids 50 ng/mL Cocaine 300 ng/mL Methadone 300 ng/mL Opiates 300 ng/mL Oxycodone 100 ng/mL Testing is for screening purposes only and should not be used in non-medical determinations. Confirmatory testing is available on request. Result Comment: Conf irmatory testing available upon request. Performed By: #### 1 2286-1 #### [facility] ([facility] [address] [place] [address] Barbiturate Screen, Ur Not detected Normal Not Detected [facility] Comment on above: Order Comment: The f ollowing detection limits are used for the urine drugs of abuse: Amphetamine 1000 ng/mL Barbiturate 200 ng/mL Benzodiazepine 200 ng/mL Cannabinoids 50 ng/mL Cocaine 300 ng/mL Methadone 300 ng/mL Opiates 300 ng/mL Oxycodone 100 ng/mL Testing is for screening purposes only and should not be used in non-medical determinations. Confirmatory testing is available on request. Result Comment: Conf irmatory testing available upon request. Performed By: #### 1 2286-1 #### [facility] [address] [place] [address] Benzodiazepine Screen, Ur Not detected Normal Not Detected [facility] Comment on above: Order Comment: The f ollowing detection limits are used for the urine drugs of abuse: Amphetamine 1000 ng/mL Barbiturate 200 ng/mL Benzodiazepine 200 ng/mL Cannabinoids 50 ng/mL Cocaine 300 ng/mL Methadone 300 ng/mL Opiates 300 ng/mL Oxycodone 100 ng/mL Testing is for screening purposes only and should not be used in non-medical determinations. Confirmatory testing is available on request. Result Comment: Conf irmatory testing available upon request. Performed By: #### 1 2286-1 #### [facility] [address] [place] [address] Cannabinoid (THC) Screen, Ur Detected Abnormal Not Detected [facility] Comment on above: Order Comment: The f ollowing detection limits are used for the urine drugs of abuse: Amphetamine 1000 ng/mL Barbiturate 200 ng/mL Benzodiazepine 200 ng/mL Cannabinoids 50 ng/mL Cocaine 300 ng/mL Methadone 300 ng/mL Opiates 300 ng/mL Oxycodone 100 ng/mL Testing is for screening purposes only and should not be used in non-medical determinations. Confirmatory testing is available on request. Result Comment: Conf irmatory testing available upon request. Performed By: #### 1 2286-1 #### [facility] [address] [place] [address] Cocaine Screen, Ur Detected Abnormal Not Detected [facility] Comment on above: Order Comment: The f ollowing detection limits are used for the urine drugs of abuse: Amphetamine 1000 ng/mL Barbiturate 200 ng/mL Benzodiazepine 200 ng/mL Cannabinoids 50 ng/mL Cocaine 300 ng/mL Methadone 300 ng/mL Opiates 300 ng/mL Oxycodone 100 ng/mL Testing is for screening purposes only and should not be used in non-medical determinations. Confirmatory testing is available on request. Result Comment: Conf irmatory testing available upon request. Performed By: #### 1 2286-1 #### [facility] [address] [place] [address] Methadone Screen, Urine Not detected Normal Not Detected [facility] Comment on above: Order Comment: The f ollowing detection limits are used for the urine drugs of abuse: Amphetamine 1000 ng/mL Barbiturate 200 ng/mL Benzodiazepine 200 ng/mL Cannabinoids 50 ng/mL Cocaine 300 ng/mL Methadone 300 ng/mL Opiates 300 ng/mL Oxycodone 100 ng/mL Testing is for screening purposes only and should not be used in non-medical determinations. Confirmatory testing is available on request. Performed By: #### 1 2286-1 #### [facility] [address] [place] [address] Opiate Screen, Ur Not detected Normal Not Detected [facility] Comment on above: Order Comment: The f ollowing detection limits are used for the urine drugs of abuse: Amphetamine 1000 ng/mL Barbiturate 200 ng/mL Benzodiazepine 200 ng/mL Cannabinoids 50 ng/mL Cocaine 300 ng/mL Methadone 300 ng/mL Opiates 300 ng/mL Oxycodone 100 ng/mL Testing is for screening purposes only and should not be used in non-medical determinations. Confirmatory testing is available on request. Result Comment: Conf irmatory testing available upon request. Performed By: #### 1 2286-1 #### [facility] [address] [place] [address] Oxycodone Screen, Ur Not detected Normal Not Detected [facility] Comment on above: Order Comment: The f ollowing detection limits are used for the urine drugs of abuse: Amphetamine 1000 ng/mL Barbiturate 200 ng/mL Benzodiazepine 200 ng/mL Cannabinoids 50 ng/mL Cocaine 300 ng/mL Methadone 300 ng/mL Opiates 300 ng/mL Oxycodone 100 ng/mL Testing is for screening purposes only and should not be used in non-medical determinations. Confirmatory testing is available on request. Performed By: #### 1 2286-1 #### [facility] [address] [place] [address] Amphetamines Ql (U) Detected Abnormal Not Detected [facility] Comment on above: Confirmatory testing available upon request. Barbiturates Screen Ql (U) Not detected Not Detected [facility] Comment on above: Confirmatory testing available upon request. Benzodiazepines Ql (U) Not detected Not Detected [facility] Comment on above: Confirmatory testing available upon request. Cannabinoids Screen Ql (U) Detected Abnormal Not Detected [facility] Comment on above: Confirmatory testing available upon request. Cocaine Ql (U) Detected Abnormal Not Detected [facility] Comment on above: Confirmatory testing available upon request. Interpretation and review of laboratory results Abnormal nVoq Methadone Screen Ql (U) Not detected Not Detected [facility] Opiates Screen Ql (U) Not detected Not Detected [facility] Comment on above: Confirmatory testing available upon request. oxyCODONE Ql (U) Not detected Not Detected [facility] The following detection limits are used for the urine drugs of abuse: Amphetamine 1000 ng/mL Barbiturate 200 ng/mL Benzodiazepine 200 ng/mL Cannabinoids 50 ng/mL Cocaine 300 ng/mL Methadone 300 ng/mL Opiates 300 ng/mL Oxycodone 100 ng/mL Testing is for screening purposes only and should not be used in non-medical determinations. Confirmatory testing is available on request. [employer] Ethanol (Bld) [Moles/Vol]on 09-22-2022 Ethanol [Mass/Vol] mg/dL NINF - 10 mg/dL nVoq Interpretation and review of laboratory results Normal [employer] Hemogram and platelets WO di fferential panel (Bld)on 09-22-2022 Basophils (Bld) [#/Vol] 0.04 10*3/uL Normal 0.00-0.20 [facility] Comment on above: Performed By: #### 2 4317-0 #### [facility] [address] [place] [address] Basophils/100 WBC (Bld) 0.6 % Normal 0.0-2.0 [facility] Comment on above: Performed By: #### 2 4317-0 #### [facility] [address] [place] [address] Eosinophils (Bld) [#/Vol] 0.03 10*3/uL Normal 0.00-0.70 [facility] Comment on above: Performed By: #### 2 4317-0 #### [facility] [address] [place] [address] Eosinophils/100 WBC (Bld) 0.4 % Normal 0.0-7.0 [facility] Comment on above: Performed By: #### 2 4317-0 #### [facility] [address] [place] [address] Erythrocyte distribution width (RBC) [Ratio] 11.9 % Normal 11.0-14.8 [facility] Comment on above: Performed By: #### 2 4317-0 #### [facility] [address] [place] [address] Hematocrit (Bld) [Volume fraction] 41.6 % Normal 34.3-47.9 [facility] Comment on above: Performed By: #### 2 4317-0 #### [facility] [address] [place] [address] Hemoglobin (Bld) [Mass/Vol] 14.3 g/dL Normal 12.0-16.0 [facility] Comment on above: Performed By: #### 2 4317-0 #### [facility] [address] [place] [address] Immature granulocytes (Bld) [#/Vol] 0.02 10*3/uL Normal [facility] Comment on above: Performed By: #### 2 4317-0 #### [facility] [address] [place] [address] Immature granulocytes/100 WBC (Bld) 0.3 % Normal 0.0-1.2 [facility] Comment on above: Performed By: #### 2 4317-0 #### [facility] [address] [place] [address] Lymphocytes (Bld) [#/Vol] 0.31 10*3/uL Low 1.00-4.80 [facility] Comment on above: Performed By: #### 2 4317-0 #### [facility] [address] [place] [address] Lymphocytes/100 WBC (Bld) 4.6 % Low 17.9-49.6 [facility] Comment on above: Performed By: #### 2 4317-0 #### [facility] [address] [place] [address] MCH 29.4 pcg Normal 27.0-34.0 [facility] Comment on above: Performed By: #### 2 4317-0 #### [facility] [address] [place] [address] MCHC (RBC) [Mass/Vol] 34.4 g/dL Normal 30.8-35.3 [facility] Comment on above: Performed By: #### 2 4317-0 #### [facility] [address] [place] [address] MCV (RBC) [Entitic vol] 85.4 fL Normal 80.0-97.0 [facility] Comment on above: Performed By: #### 2 4317-0 #### [facility] [address] [place] [address] Monocytes (Bld) [#/Vol] 0.81 10*3/uL Normal 0.00-0.90 [facility] Comment on above: Performed By: #### 2 4317-0 #### [facility] [address] [place] [address] Monocytes/100 WBC (Bld) 12.0 % Normal 0.0-12.0 [facility] Comment on above: Performed By: #### 2 4317-0 #### [facility] [address] [place] [address] Neutrophils Absolute 5.53 K/mcL Normal 1.80-7.70 [facility] Comment on above: Performed By: #### 2 4317-0 #### [facility] [address] [place] [address] Neutrophils/100 WBC (Bld) 82.1 % High 38.1-75.5 [facility] Comment on above: Performed By: #### 2 4317-0 #### [facility] [address] [place] [address] Platelet mean volume (Bld) [Entitic vol] 9.6 fL Normal 6.2-12.1 [facility] Comment on above: Performed By: #### 2 4317-0 #### [facility] [address] [place] [address] Platelets (Bld) [#/Vol] 199 10*3/uL Normal 142-424 [facility] Comment on above: Performed By: #### 2 4317-0 #### [facility] [address] [place] [address] RBC (Bld) [#/Vol] 4.87 10*6/uL Normal 3.74-5.34 [facility] Comment on above: Performed By: #### 2 4317-0 #### [facility] [address] [place] [address] WBC (Bld) [#/Vol] 6.7 10*3/uL Normal 4.6-10.2 [facility] Comment on above: Performed By: #### 2 4317-0 #### [facility] [address] [place] [address] Basophils (Bld) [#/Vol] 0.04 10*3/uL [facility] Basophils/100 WBC (Bld) 0.6 % 0.0 - 2.0 % [facility] Eosinophils (Bld) [#/Vol] 0.03 10*3/uL [facility] Eosinophils/100 WBC (Bld) 0.4 % 0.0 - 7.0 % [facility] Erythrocyte distribution width (RBC) [Ratio] 11.9 % 11.0 - 14.8 % [facility] Hematocrit (Bld) [Volume fraction] 41.6 % 34.3 - 47.9 % [facility] Hemoglobin (Bld) [Mass/Vol] 14.3 g/dL 12.0 - 16.0 g/dL [facility] Immature granulocytes (Bld) [#/Vol] 0.02 10*3/uL K/mcL [facility] Immature granulocytes/100 WBC (Bld) 0.3 % 0.0 - 1.2 % [facility] Interpretation and review of laboratory results Abnormal [facility] Lymphocytes (Bld) [#/Vol] 0.31 10*3/uL Low [facility] Lymphocytes/100 WBC (Bld) 4.6 % Low 17.9 - 49.6 % [facility] MCH (RBC) [Entitic mass] 29.4 pg [facility] MCHC (RBC) [Mass/Vol] 34.4 g/dL 30.8 - 35.3 g/dL [facility] MCV (RBC) [Entitic vol] 85.4 fL [facility] Monocytes (Bld) [#/Vol] 0.81 10*3/uL [facility] Monocytes/100 WBC (Bld) 12.0 % 0.0 - 12.0 % [facility] Neutrophils (Bld) [#/Vol] 5.53 10*3/uL [facility] Neutrophils/100 WBC (Bld) 82.1 % High 38.1 - 75.5 % [facility] Platelet mean volume (Bld) [Entitic vol] 9.6 fL [facility] Platelets (Bld) [#/Vol] 199 10*3/uL [facility] RBC (Bld) [#/Vol] 4.87 10*6/uL [facility] WBC (Bld) [#/Vol] 6.7 10*3/uL [facility] [employer] Hepatic function 2000 panelo n 09-22-2022 Albumin [Mass/Vol] 4.4 g/dL 3.5 - 4.8 g/dL [facility] ALP [Catalytic activity/Vol] 48 U/L [facility] [employer] ALT [Catalytic activity/Vol] 16 U/L [facility] AST [Catalytic activity/Vol] 19 U/L [facility] [facility] Bilirubin [Mass/Vol] 0.4 mg/dL 0.3 - 1 .2 mg/dL [facility] Bilirubin.direct [Mass/Vol] 0.1 mg/dL NINF - 0.5 mg/dL [facility] Bilirubin.indirect [Mass/Vol] 0.3 mg/dL 0.0 - 1.0 mg/dL [facility] [employer] Protein [Mass/Vol] 6.8 g/dL 6.1 - 7.9 g/dL [facility] Lipaseon 09-22-2022 Lipase [Catalytic activity/Vol] 35 U/L [facility] Magnesiumon 09-22-2022 Magnesium [Mass/Vol] 1.5 mg/dL Low 1.8 - 2 .5 mg/dL [facility] Magnesium [Mass/Vol]on 09-22 Ethanol Level <10 Normal <10 [facility] Comment on above: Performed By: #### 1 9123-9 #### [facility] [address] [place] [address] N gonorrhoea DNA Ur Ql MOE+p robeon 09-22-2022 N. gonorrhoeae DNA MOE+probe Ql (U) N. gonorrhoeae, RNA Probe Status = F Negative Chlamydia, RNA Probe Status = F Negative Normal Negative [facility] Comment on above: Order Comment: Self swab Performed By: #### 2 1416-3 #### [facility] ([facility]) [facility] [address] [place] [address] No Panel Informationon 09-22 Interpretation and review of laboratory results Normal [employer] Interpretation and review of laboratory results Abnormal nVoq Rapid bacterial vaginosis sc reenOrdered By: Morgan Patel on 09-22-2022 Bacterial sialidase Ql (Unsp spec) Positive Abnormal Negative nVoq T. vaginalis Ag IA Ql (Genit al specimen)on 09-22-2022 Interpretation and review of laboratory results Normal nVoq T. vaginalis Wet prep Ql (Genital specimen) Negative Negative [employer] Urinalysis dipstick W Reflex Culture panel (U)on 09-22-2022 Bacteria identified Cx Nom (U) 1 ORGANISM 202 Abnormal >244127 CFU/mL Escherichia coli The organism value for this result has been updated. These results have been appended to the previously preliminary verified report. 1 ORGANISM Antibiotic Result Intrp Ampicillin Susc Islt >=32 ug/ml Resistant Ampicillin+Sulbac Susc Islt 16 ug/ml I ceFAZolin Susc Islt <=4 ug/ml Susceptible cefTRIAXone Susc Islt <=0.25 ug/ml Susceptible Gentamicin Susc Islt <=1 ug/ml Susceptible Ciprofloxacin Susc Islt <=0.25 ug/ml Susceptible Nitrofurantoin Susc Islt <=16 ug/ml Susceptible TMP SMX Susc Islt >=320 ug/ml Resistant Invalid Interpretation Code [facility] Comment on above: Performed By: #### 5 7019-2 #### [facility] [place] ([facility]) [facility] [address] [place] [address] Bacteria, Urine Rare Abnormal None [facility] Comment on above: Performed By: #### 7019-2 #### [facility] [place] [facility]) [facility] [address] [place] [address] Bilirubin, Urine Negative Normal Negative [facility] Comment on above: Performed By: #### 5 7019-2 #### [facility] [place] [facility] [address] [place] [address] Blood, Urine 2+ Abnormal Negative [facility] Comment on above: Performed By: #### 7019-2 #### [facility] ([facility]) [facility] [address] [place] [address] Clarity (U) Hazy Abnormal Clear [facility] Comment on above: Performed By: #### 7019-2 #### [facility] [place] ([facility]) [facility] [address] [place] [address] Color (U) Yellow Normal Yellow [facility] Comment on above: Performed By: #### 7019-2 #### [facility] [place] [facility] [address] [place] [address] Glucose Ql (U) Normal Normal Normal [facility] Comment on above: Performed By: #### 7019-2 #### [facility] [place] [facility] [address] [place] [address] Ketones Ql (U) 5 mg/dL Abnormal Negative [facility] Comment on above: Performed By: #### 7019-2 #### [facility] [place] [facility] [address] [place] [address] Leukocytes, Urine 25 WBCs/mcL Abnormal Negative [facility] Comment on above: Performed By: #### 5 7019-2 #### [facility] [place] [facility] [address] [place] [address] Mucus, UA Rare Abnormal None [facility] Comment on above: Performed By: #### 5 7019-2 #### [facility] [place] [facility] [address] [place] [address] Nitrite, Urine Negative Normal Negative [facility] Comment on above: Performed By: #### 5 7019-2 #### [facility] ([facility]) [facility] [address] [place] [address] pH (U) 6.0 [pH] Normal 5.0-8.0 [facility] Comment on above: Performed By: #### 5 7019-2 #### [facility] [place] [facility] [address] [place] [address] Protein, Urine Negative Normal Negative [facility] Comment on above: Performed By: #### 5 7019-2 #### [facility] [place] [facility] [address] [place] [address] RBC LM.HPF (Urine sed) [#/Area] 4 /[HPF] Normal 0-5 [facility] Comment on above: Performed By: #### 5 7019-2 #### [facility] ([facility] [address] [place] [address] Specific [place] Urine 1.015 Normal 1.002-1.030 [facility] Comment on above: Performed By: #### 5 7019-2 #### [facility] [address] [place] [address] Squamous Epithelial, Urine Many Abnormal None [facility] Comment on above: Performed By: #### 5 7019-2 #### [facility] [address] [place] [address] Urobilinogen, Urine Normal Normal Normal [facility] Comment on above: Performed By: #### 5 7019-2 #### [facility] [address] [place] [address] WBC LM.HPF (Urine sed) [#/Area] 4 /[HPF] Normal 0-5 [facility] Comment on above: Performed By: #### 5 7019-2 #### [facility] [address] [place] [address] Bacteria LM.HPF (Urine sed) [#/Area] Rare Abnormal None /HPF [facility] Bilirubin Ql (U) Negative Negative mg/dL [facility] Clarity (U) Hazy Abnormal Clear [facility] Color (U) Yellow Yellow [facility] Epithelial cells.squamous LM.HPF (Urine sed) [#/Area] Many Abnormal None /LPF [facility] Glucose Ql (U) Normal Normal mg/dL [facility] Hemoglobin Ql (U) 2+ Abnormal Negative [facility] Interpretation and review of laboratory results Abnormal [facility] Ketones (U) [Mass/Vol] 5 mg/dL Abnormal Negative [facility] Leukocyte esterase Test strip Ql (U) 25 Abnormal Negative WBCs/mcL [facility] Mucus Ql (Urine sed) Rare Abnormal None /LPF [facility] Nitrite Ql (U) Negative Negative [facility] pH (U) 6.0 [pH] 5.0 - 8.0 pH [facility] th Protein (U) [Mass/Vol] Negative Negative mg/dL [facility] RBC LM.HPF (Urine sed) [#/Area] 4 /[HPF] [facility] Specific gravity (U) [Rel density] 1.015 1.002 - 1.030 [facility] [address] [facility] Urobilinogen (U) [Mass/Vol] Normal Normal mg/dL [facility] WBC LM.HPF (Urine sed) [#/Area] 4 /[HPF] [facility] 05-07-2019 ED [facility] Emergency Department [address] [place], [place] [address] Emergency Department Discharge Instructions HO SIMMS , Please provide this information to your Primary Care/Specialist Name : HO SIMMS Current Date : 05/07/2019 12:55:33 : 1995 12:00 PM Primary Care Physician: Physician, Breanna PCP Diagnosis : Follow-Up Instructions: HO SIMMS has been given these follow-up instructions: FOLLOW-UP APPOINTMENTS: Provider: Specialty: Address: Date: Keep your scheduled appointment. 3 to 4 days Laboratory Orders: None Ordered Radiology Orders: None Ordered Diagnostic Tests: None Ordered Procedure(s) and Patient Education(s) : Work Release (CO-W) Stirum (Custom); Blank Instruction (CUSTOM) EMERGENCY SERVICES MEDICATION LIST Lista de Medicaciones de los Servicios de Emergencia Name HO SIMMS MRN (COL)-[id number] Acc# [id number] PLEASE READ THE FOLLOWING REGARDING YOUR MEDICATIONS Based on the information available during your visit we have given you the medication instructions below. Continue taking medications you took prior to your visit unless you have been told to change. Please share this information with your own doctor. Carry a list of your medications with you in case of an emergency. Update it when medications are stopped, doses are changed, or new medications (including hfmm-ygj-emocoqh products) are added. If you have any questions, check with your doctor. Por la informaci??n disponible mona do visita, las instrucciones de medicaci??n aparecen debajo. Favor de continuar tomando las medicaciones Ud. robinson?? antes de do visita por lo menos que hay cambios. Favor de compartir esta informaci??n con do medico. Lleva swapnil lista de medicaciones consigo por matthew de emergenc??a. Actualiza la lista cuando Ud. delfino de bre las medicaciones, si cambian las dosis, o si hay nuevas medicaciones a??adidas (incluyendo medicaciones vendidas sin prescripci??n). Favor de preguntar a do medico por cualquier jeremie. THESE ARE THE MEDICATIONS YOU SHOULD BE TAKING etonogestrel (Implanon 68 mg subcutaneous implant) 1 Each Subcutaneous One Time Only. ibuprofen spinosad topical (spinosad topical 0.9% suspension) 1 Application Topical One Time Only. Apply to dry scalp and hair. Wash off after 10 minutes.. Refills: 0. MEDICATIONS GIVEN DURING MEDICAL VISIT None NON-MEDICATION PRESCRIPTION SCHEDULING PHONE NUMBER: MEDICATION CHANGE DETAILS (Not your Final Home Medication List) During the course of your visit, your home medication list was updated with the most current information. The details of those changes are shown below: NEW MEDICATIONS None UPDATED MEDICATIONS None UNCHANGED MEDICATIONS Other Medications etonogestrel (Implanon 68 mg subcutaneous implant) 1 Each Subcutaneous One Time Only. Comment ibuprofen Comment spinosad topical (spinosad topical 0.9% suspension) 1 Application Topical One Time Only. Apply to dry scalp and hair. Wash off after 10 minutes.. Refills: 0. Comment STOP TAKING THESE MEDICATIONS None DO NOT TAKE UNTIL YOU TALK TO YOUR DOCTOR None [facility] Emergency Department [address] [place], [place] [id number] Emergency Department Discharge Instructions Name: HO SIMMS Current Date: 05/07/2019 12:55:33 : 1995 12:00 PM Primary Physician: Physician, No PCP We would like to thank you for choosing [facility] for your emergency medical needs. We examined and treated you today on an emergency basis only. This was not a substitute for, or an effort to provide, complete medical care. In most cases, you must let your doctor (or the doctor we referred you to) check you again. Tell your doctor about any new or lasting problems. We cannot recognize and treat all injuries or illnesses in one emergency department visit. After you leave, you should follow the directions attached. When arranging for follow-up care with your physician/referral identify yourself as being seen in the emergency department. . Instructions for obtaining X-rays: When following up with your doctor, you may need to take copies of your x-rays that were done in the Emergency Department. If you didn't receive these upon your discharge from the emergency department, please call . When the final report becomes available and it is reviewed, the emergency department will attempt to contact you if there are any changes in your instructions. It is important that you leave accurate information with us on how to contact you. IF you cannot be contacted, YOU must contact the follow-up doctor that you were assigned to make sure that the final official x-ray report does not require a change in your treatment. Instructions for obtaining medical records: If you need a copy of your medical records for follow-up, please contact the Health Information Management Department at . Their office hours are 8 AM- 4:30 PM, Friday through Friday. Please note: Results are not immediately available. Please allow a minimum of 36 hours for documentation and results. If you were prescribed an antibiotic: Antibiotics are life-saving drugs and they need to be used properly. Your team might change your antibiotic because test results show that a different antibiotic would be better to treat your infection. Like all medications, antibiotics have side effects. Some can be serious. This includes the risk of getting an antibiotic-resistan t infection later, which may be difficult to treat. Remember to take your antibiotics as prescribed. If you have any questions please talk to your healthcare team. Seatbelts: There is no doubt that seatbelts save lives. Every day, people without seatbelts have more serious injuries. Have everyone buckle up, using age appropriate seatbelts or car seats, to reduce their risk of injury. Smoking: If you do smoke, we encourage you to stop. Smoking affects all aspects of your health and the health of those around you. Call the [place] [employer] at 4-299-EQLW-USA or the [place] [employer] at 2-212-SUY-8657 for more information. High blood pressure: Your screening blood pressure today was 136 mm Hg / 81 mm Hg. Hypertension (high blood pressure) is blood pressure over 120/80. People with hypertension should contact their primary care provider within 30 days to follow up. Check your patient portal for additional blood pressure information. Immunizations: Immunization is a way to protect against deadly infections. Discuss this with your child's pill machine operator, or Public Health Department. Your family practice doctor can determine if you need pneumonia or flu vaccine. [facility] Department can be reached at . Substance Abuse Program: Concerns with addiction to alcohol, benzodiazepines (Ativan or Xanax) and Opiates (Heroin, Percocet, OxyContin, Methadone or Fentanyl)? [facility] offers an inpatient Substance Abuse Program to help treat the symptoms associated with medical detoxification of addictive substances. The new program offers care for non- adults (18 and older) looking to break the chain to addictive chemicals. The Substance Abuse Program is a voluntary inpatient admission and it starts with a pre-screening phone call to a social work associate. During the call, goals and objectives for recovery and how the patient will transition to outpatient care will be established. Please call 111-686-1472 to get help today. Domestic Violence: If you are a victim of domestic violence (physical, verbal, or emotional), you are not alone. Discuss this with your physician or a friend and call Choices Hotline ( for assistance and support. You are the most important factor in your recovery. Follow the provided instructions carefully. Take your medications as prescribed. Most importantly, see a doctor again as discussed. If you have problems that we have not discussed, call or visit your doctor right away. If you do not have a primary care physician, we have provided one for you to follow up with. When you call for an appointment, please inform them that you were seen in the emergency department and the date of your visit. If you are unable to reach your doctor and are still experiencing problems, return to the emergency department. For assistance finding a primary care physician, call the Physician Referral Line at . Suicide Hotline: Your mental and emotional well-being is important. If you are in a mental health crisis or are having thoughts of suicide, please call the nationwide suicide hotline, anytime day or night, at 5-835-850-DRDC. Community Rn Cardiology: You may be contacted by your local fire department for a follow up visit from a community resistance welder. The community resistance welder can help with a home safety check; follow up care, and general home care management. Pharmacy Information: Below is a list of 24 hour pharmacies that we are aware of. We suggest that you call the specific pharmacy for their hours before traveling to a location. Hours may vary on holidays. [facility] [address] [place] [phone] [place] [address] [phone] [place] [address] [phone] [address] [phone] [place], [place] [phone] [address] [place] [address] [phone] [place] [address] [phone] Take all medications as directed. If you need prescription assistance, contact the following agencies: ?? [facility] for Prescription Assistance at or www.[employer].org ?? [place] at or www.[employer].org ?? 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 ED Physician/Provider Your nexplanon device appears to be well positioned. There in no evidence that it is broken, or infected. If the area becomes swollen, red, not or you develop a fever or pain in the area, please return to the emergency department. [facility] <><><><><><><><><>< ><><><><><><><><><> <><><><><><><><><>< ><><><><> Patient Visit Summary Signature HO SIMMS has been given the following list of patient education materials, prescriptions and follow-up instructions: IYANNI SHYLEIGH M, have received the above patient education materials/instructi ons and have verbalized understanding: _ Date _ Time Patient Signature _ Date _ Time Provider Signature Normal [facility] ED [facility] 03[facility]2019 ED [facility] [address] [place] [id number] Emergency Department Discharge Instructions HO SIMMS , Please provide this information to your Primary Care/Specialist Name : YANNI HO Zacarias Current Date : 03/02/2019 03:10:39 : 1995 12:00 PM Primary Care Physician: Physician, Breanna PCP Diagnosis : Follow-Up Instructions: HO SIMMS has been given these follow-up instructions: FOLLOW-UP APPOINTMENTS: Provider: Specialty: Address: Date: No PCP Physician Family Practice; Internal Medicine Follow-up as needed Provider: Specialty: Address: Date: [facility] ([facility]) business [phone] [facility] [address] (5) 5 to 7 days Comment: Call for an Appointment Provider: Specialty: Address: Date: Return to Emergency Department Follow-up as needed Laboratory Orders: None Ordered Radiology Orders: Name: Status: XR Clavicle Complete LT Completed XR Chest Inspiration/Expirat ion Completed XR Chest 1 View Completed Diagnostic Tests: None Ordered Procedure(s) and Patient Education(s) : [facility] Patient Education (CUSTOM); [place] - Clinic List - All (CUSTOM); Chest Wall Pain; Free Text Instruction (CUSTOM) EMERGENCY SERVICES MEDICATION LIST Lista de Medicaciones de los Servicios de Emergencia Name HO SIMMS MRN ([facility])-[id number] PLEASE READ THE FOLLOWING REGARDING YOUR MEDICATIONS Based on the information available during your visit we have given you the medication instructions below. Continue taking medications you took prior to your visit unless you have been told to change. Please share this information with your own doctor. Carry a list of your medications with you in case of an emergency. Update it when medications are stopped, doses are changed, or new medications (including tbyb-vkn-engahyq products) are added. If you have any questions, check with your doctor. Por la informaci??n disponible mona do visita, las instrucciones de medicaci??n aparecen debajo. Favor de continuar tomando las medicaciones Ud. robinson?? antes de do visita por lo menos que hay cambios. Favor de compartir esta informaci??n con do medico. Lleva swapnil lista de medicaciones consigo por matthew de emergenc??a. Actualiza la lista cuando Ud. delfino de bre las medicaciones, si cambian las dosis, o si hay nuevas medicaciones a??adidas (incluyendo medicaciones vendidas sin prescripci??n). Favor de preguntar a do medico por cualquier jeremie. THESE ARE THE MEDICATIONS YOU SHOULD BE TAKING etonogestrel (Implanon 68 mg subcutaneous implant) 1 Each Subcutaneous One Time Only. ibuprofen naproxen (Naprosyn 500 mg oral tablet) 1 Tab(s) By Mouth Twice a day as needed for pain for 7 Days. Refills: 0. spinosad topical (spinosad topical 0.9% suspension) 1 Application Topical One Time Only. Apply to dry scalp and hair. Wash off after 10 minutes.. Refills: 0. MEDICATIONS GIVEN DURING MEDICAL VISIT naproxen 500 mg last dose given on 03/02/2019 at 02:28 Route: By Mouth NON-MEDICATION PRESCRIPTION SCHEDULING PHONE NUMBER: MEDICATION CHANGE DETAILS (Not your Final Home Medication List) During the course of your visit, your home medication list was updated with the most current information. The details of those changes are shown below: NEW MEDICATIONS Printed Prescriptions naproxen (Naprosyn 500 mg oral tablet) 1 Tab(s) By Mouth Twice a day as needed for pain for 7 Days. Refills: 0. Comment UPDATED MEDICATIONS None UNCHANGED MEDICATIONS Other Medications etonogestrel (Implanon 68 mg subcutaneous implant) 1 Each Subcutaneous One Time Only. Comment ibuprofen Comment spinosad topical (spinosad topical 0.9% suspension) 1 Application Topical One Time Only. Apply to dry scalp and hair. Wash off after 10 minutes.. Refills: 0. Comment STOP TAKING THESE MEDICATIONS None DO NOT TAKE UNTIL YOU TALK TO YOUR DOCTOR None [address] [place] [id number] [place], [place] [address] Emergency Department Discharge Instructions Name: YANNIERICEMERY Zacarias Current Date: 03/02/2019 03:10:39 : 1995 12:00 PM Primary Physician: Physician, No PCP We would like to thank you for choosing [facility] for your emergency medical needs. We examined and treated you today on an emergency basis only. This was not a substitute for, or an effort to provide, complete medical care. In most cases, you must let your doctor (or the doctor we referred you to) check you again. Tell your doctor about any new or lasting problems. We cannot recognize and treat all injuries or illnesses in one emergency department visit. After you leave, you should follow the directions attached. When arranging for follow-up care with your physician/referral identify yourself as being seen in the emergency department. . Instructions for obtaining X-rays: When following up with your doctor, you may need to take copies of your x-rays that were done in the Emergency Department. If you didn't receive these upon your discharge from the emergency department, please call . When the final report becomes available and it is reviewed, the emergency department will attempt to contact you if there are any changes in your instructions. It is important that you leave accurate information with us on how to contact you. IF you cannot be contacted, YOU must contact the follow-up doctor that you were assigned to make sure that the final official x-ray report does not require a change in your treatment. Instructions for obtaining medical records: If you need a copy of your medical records for follow-up, please contact the Health Information Management Department at . Their office hours are 8 AM- 4:30 PM, Friday through Friday. Please note: Results are not immediately available. Please allow a minimum of 36 hours for documentation and results. If you were prescribed an antibiotic: Antibiotics are life-saving drugs and they need to be used properly. Your team might change your antibiotic because test results show that a different antibiotic would be better to treat your infection. Like all medications, antibiotics have side effects. Some can be serious. This includes the risk of getting an antibiotic-resistan t infection later, which may be difficult to treat. Remember to take your antibiotics as prescribed. If you have any questions please talk to your healthcare team. Seatbelts: There is no doubt that seatbelts save lives. Every day, people without seatbelts have more serious injuries. Have everyone buckle up, using age appropriate seatbelts or car seats, to reduce their risk of injury. Smoking: If you do smoke, we encourage you to stop. Smoking affects all aspects of your health and the health of those around you. Call the [place] [employer] at 5-441-AHGV-USA or the [place] [employer] at 8-770-LFY2344 for more information. High blood pressure: Your screening blood pressure today was 148 mm Hg / 87 mm Hg. Hypertension (high blood pressure) is blood pressure over 120/80. People with hypertension should contact their primary care provider within 30 days to follow up. Check your patient portal for additional blood pressure information. Immunizations: Immunization is a way to protect against deadly infections. Discuss this with your child's pill machine operator, or Public Health Department. Your family practice doctor can determine if you need pneumonia or flu vaccine. [facility] Department can be reached at . Substance Abuse Program: Concerns with addiction to alcohol, benzodiazepines (Ativan or Xanax) and Opiates (Heroin, Percocet, OxyContin, Methadone or Fentanyl)? [facility] offers an inpatient Substance Abuse Program to help treat the symptoms associated with medical detoxification of addictive substances. The new program offers care for non- adults (18 and older) looking to break the chain to addictive chemicals. The Substance Abuse Program is a voluntary inpatient admission and it starts with a pre-screening phone call to a social work associate. During the call, goals and objectives for recovery and how the patient will transition to outpatient care will be established. Please call [phone] to get help today. Domestic Violence: If you are a victim of domestic violence (physical, verbal, or emotional), you are not alone. Discuss this with your physician or a friend and call Choices Hotline ( for assistance and support. You are the most important factor in your recovery. Follow the provided instructions carefully. Take your medications as prescribed. Most importantly, see a doctor again as discussed. If you have problems that we have not discussed, call or visit your doctor right away. If you do not have a primary care physician, we have provided one for you to follow up with. When you call for an appointment, please inform them that you were seen in the emergency department and the date of your visit. If you are unable to reach your doctor and are still experiencing problems, return to the emergency department. For assistance finding a primary care physician, call the Physician Referral Line at . Suicide Hotline: Your mental and emotional well-being is important. If you are in a mental health crisis or are having thoughts of suicide, please call the nationwide suicide hotline, anytime day or night, at 9-370-358-DMPF. Community Rn Cardiology: You may be contacted by your local fire department for a follow up visit from a community resistance welder. The community resistance welder can help with a home safety check; follow up care, and general home care management. Pharmacy Information: Below is a list of 24 hour pharmacies that we are aware of. We suggest that you call the specific pharmacy for their hours before traveling to a location. Hours may vary on holidays. [facility] [address] [phone] [facility] [address] [place], [place] [phone] [place], [place] [address] [phone] [address] [place], [place] [phone] [address] [place], [place] [phone] [address] [place], [place] [phone] [address] [phone] Take all medications as directed. If you need prescription assistance, contact the following agencies: ?? Partnership for Prescription Assistance at or www.Anonymous Youx.org ?? [place] at or www.[employer] Consult[employer] Servicesrx.org ?? www.FlockTAGRitembase is a site with many valuable coupons Patient Education Materials HO SIMMS has been given the following patient education materials: ~~ Did you know that there is a Health Center near you that can serve children and adults regardless of your income or ability to pay? Call today for an appointment at [facility] (site #1) [address] [place] [address] (Near [place] on [facility]) beside the [facility] for [facility] (site #2) [address] [place] [address] on the [facility] [email or web address] We provide health care for the ENTIRE FAMILY, including care, shots, well-child checkups, case management and nutrition counseling. Accepting new patients with or without health insurance We welcome all patients with Medicare, Medicaid, Caresource, Hazel, and commercial insurance. Sliding fee for those without insurance To schedule an appointment, call ~~ For patients referred to a [facility] for possible follow-up care Before you call for an appointment, please read this notice completely. [facility] wants to make sure that your follow-up care will not be delayed. Please let the emergency room staff know if you DO NOT meet ALL of the requirements listed below. They will then refer you elsewhere for timely care. Patients who are eligible for [facility] see patients: ?? Who do not have a primary care doctor or clinic where they receive care ?? Who have insurance card that lists [facility] as the provider Patients who are not eligible for [facility] provide high-quality health care for a variety of illnesses and injuries. However, [facility] are not able to serve all patients. [facility] cannot see patients: ?? Who are under 13. ?? Who already have a primary care doctor or are seen at another clinic regularly. ?? Who have an injury that is/could be a worker's compensation claim - i.e., were hurt on the job. ?? Who are using/expecting payment from someone else's insurance - e.g., auto accident injuries when the patient is not the responsible alliance party. Not all types of care are available at all [facility] locations. Here is a list of [facility] locations and phone numbers, along with a brief description of the services they offer. [facility] For General Medical Concerns Faith for All People [address] [id number] [facility] [address] [place], [place] [phone] [facility] Primary [facility] Specialty [facility] [address] [place], [place] [phone] Friday - Friday 8am - 4pm [facility] [address] [place], [place] [phone] [facility] DOCUMENTUM CONSULTANT Clinic [address] [place], [place] [phone] [facility] 477 [facility] [address] [place], [place] [phone] General medical [facility] Outreach Mobile Construction Safety Manager Clinics - For all Clinics call [phone] [facility]* [address] [place], [place] [address] [facility]/ [facility]* [address] [place], [place] [address] [facility]* [address] [place], [place] [address] [facility] 38 [place], [place] [address] [facility] 14 [place], [place] [address] [facility] 1675 [place], [place] [address] [facility] [address] [place], [place] [address] [address] [place], [place] [address] [facility]* [address] [place], [place] [address] [facility] [address] [place] [address] and Friday monthly 1-3pm *Denotes clinics where mental health services are provided on site. Clinic hours vary; unless otherwise noted, [facility] Clinics see patients by appointment only. Some clinics do not accept Medicare patients. In addition to the above, there are other similar clinics throughout [facility]. Several such clinics are listed on the back of this notice, for your convenience. Non-[facility] Clinics in [facility] supplies this information for reference only, and is not responsible for changes in locations, hours, or services. This information was accurate at the time of printing. [facility] recommends checking all information listed here before choosing a clinic for your care. Call for hours, most clinics are by appointment only Primary [place] [phone] Primary [facility] [address] [place], [place] [address] [facility] [address], [place] [address] [facility] [place] 23[address] [place], [place] [address] [facility] [address] [facility] [address]rd Floor [place], [place] [address] [facility] [place] [address] [place], [place] [address] [facility] 3433 [facility] [address] [place] [address] [facility] Luis Angel Davies [address] [place], [place] [address] [facility] [address] [place], [place] [address] [facility] [address] [place], [place] [address] [facility] Clinics Dental Clinic [address] [phone] [facility] [address]118 [facility] [address] [phone] Optometry Clinic [address] [address] [facility] 3595 [place], [place] [address] [place] Insure/Medicaid Clinics Dr. John Conti [address] [address] For people employed or have some income With no insurance or those with Medicaid Only see patients on mornings. To schedule an appointment call: [phone] [facility] [address] [facility] [address] [place], [place] [address] [place] [facility] Clinics [address] [place], [place] [address] [facility] Family Medicine [phone] [facility] Free [facility] [phone] [facility] Free [facility] [phone] [facility] [phone] Free Clinic 4700 [facility] B [place], [place] [address] [facility] Primary Care Clinics [place] [address] [place], [place] [address] [facility] 1275 [place], [place] [address] Near [place] 1125 [place], [place] [address] [place] 1390 [facility] 2nd [place], [place] [address] [facility] 4560 [place], [place] [address] [facility] 1777 [place], [place] [address] [place] 441 [place], [place] [address] [place] 561 [place], [place] [address] [facility] 1405 [place], [place] [address] [place] [address] [place], [place] [address] [place] [address] [place], [place] [address] [facility] Close to Home [facility] 7901 [facility] [address] [place], [place] [address] [facility] 6435 [place], [place] [address] 6499 [facility] [address] [place], [place] [address] [place] [address] [facility] [address] [place], [place] [address] [address] [facility] [address] [place], [place] [address] 500 [facility] 3rd floor [place], [place] [address] [place] [address] [place], [place] [address] [place] 75 [place], [place] [address] [address] 275 [place], [place] [address] [place] [address] [place], [place] [address] [address] [address] [place] [address] [address] [place], [place] [address] [place], [place] [address] [facility] Hospital [facility] Clinics [facility] 1934 [place], [place] [address] ext 1840 [facility] [place] 1421 [place], [place] [address] [address] Immunizations, Tests, Health Screenings Call for times of clinics [facility] [address] ([facility]) 39 [place], [place] [address] Patients of all ages accepted- treatment of common ailments including: common cold, ear infections, abrasions, and sprains. [phone] Every Friday 6:30pm-8:30pm [facility] 240 [place], [place] [address] [facility] Various locations throughout [place] [phone] [facility] , [place] and Mondays at 6pm [phone] Routine medical care at no charge including sports and school physicals, health screenings. Walk in [facility] [phone] or [phone] (toll free) Return for increasing pain, coughing up blood, fever or any other concerns. Musculoskeletal Chest Wall Pain Chest wall pain is pain in or around the bones and muscles of your chest. It may take up to 6 weeks to get better. It may take longer if you must stay physically active in your work and activities. CAUSES Chest wall pain may happen on its own. However, it may be caused by: ???A viral illness like the flu. ???Injury. ???Coughing. ???Exercise. ???Arthritis. ???Fibromyalgia. ???Shingles. HOME CARE INSTRUCTIONS ???Avoid overtiring physical activity. Try not to strain or perform activities that cause pain. This includes any activities using your chest or your abdominal and side muscles, especially if heavy weights are used. ???Put ice on the sore area. ???Put ice in a plastic bag. ???Place a towel between your skin and the bag. ???Leave the ice on for 15-20 minutes per hour while awake for the first 2 days. ???Only take aoaw-ble-ucyckxz or prescription medicines for pain, discomfort, or fever as directed by your caregiver. SEEK IMMEDIATE MEDICAL CARE IF: ???Your pain increases, or you are very uncomfortable. ???You have a fever. ???Your chest pain becomes worse. ???You have new, unexplained symptoms. ???You have nausea or vomiting. ???You feel sweaty or lightheaded. ???You have a cough with phlegm (sputum), or you cough up blood. MAKE SURE YOU: ???Understand these instructions. ???Will watch your condition. ???Will get help right away if you are not doing well or get worse. This information is not intended to replace advice given to you by your health care provider. Make sure you discuss any questions you have with your health care provider. Document Released: 11/03/2006 Document Revised: 01/25/2013 Document Reviewed: 01/29/2016 [employer] Interactive Patient Education ?2016 [employer] <><><><><><><><><>< ><><><><><><><><><> <><><><><><><><><>< ><><><><> Patient Visit Summary Signature YANNI HO Deann has been given the following list of patient education materials, prescriptions and follow-up instructions: YANNI Guaman SHYLEIGH M, have received the above patient education materials/instructi ons and have verbalized understanding: _ Date _ Time Patient Signature _ Date _ Time Provider Signature Normal [facility] XR Chest 1 Viewon 03-02-2019 XR Chest Single view EXAMINATION TYPE: XR Chest Inspiration/Expirat ion, XR Clavicle Complete LT, XR Chest 1 lateral View DATE OF EXAM: 03/02/2019 2:15 AM COMPARISON: NONE HISTORY: Pain w Trauma FINDINGS: Chest inspiration and expiration and lateral: Lungs are clear. Negative for pneumothorax. Cardiomediastinal silhouette is within normal limits. Negative for compression deformity. Negative for effusion. Negative for rib fracture or mediastinal widening. Left clavicle: Negative for fracture or dislocation. IMPRESSION: Nonacute studies detailed above [facility] thanks you for the opportunity to care for your patient. Workstation ID: [id number] - [id number] FINAL REPORT Dictated By: Caleb Enriquez MD 03/02/2019 02:23 Assigned Physician: Caleb Enriquez MD Reviewed and Electronically Signed By: Caleb Enriquez MD 03/02/2019 02:25 Transcribed by: KAREEM 03/02/2019 02:23 Technologist: [facility] Comment on above: Order Comment: Later al chest XR Chest Inspiration/Expirat ionon 03-02-2019 XR Chest Views W inspiration and expiration EXAMINATION TYPE: XR Chest Inspiration/Expirat ion, XR Clavicle Complete LT, XR Chest 1 lateral View DATE OF EXAM: 03/02/2019 2:15 AM COMPARISON: NONE HISTORY: Pain w Trauma FINDINGS: Chest inspiration and expiration and lateral: Lungs are clear. Negative for pneumothorax. Cardiomediastinal silhouette is within normal limits. Negative for compression deformity. Negative for effusion. Negative for rib fracture or mediastinal widening. Left clavicle: Negative for fracture or dislocation. IMPRESSION: Nonacute studies detailed above [facility] thanks you for the opportunity to care for your patient. Workstation ID: [id number] - [id number] FINAL REPORT Dictated By: Caleb Enriquez MD 03/02/2019 02:23 Assigned Physician: Caleb Enriquez MD Reviewed and Electronically Signed By: Caleb Enriquez MD 03/02/2019 02:25 Transcribed by: [facility] 03/02/2019 02:23 Technologist: BP [facility] XR Clavicle Complete LTon XR Clavicle - left Views EXAMINATION TYPE: XR Chest Inspiration/Expirat ion, XR Clavicle Complete LT, XR Chest 1 lateral View DATE OF EXAM: 03/02/2019 2:15 AM COMPARISON: NONE HISTORY: Pain w Trauma FINDINGS: Chest inspiration and expiration and lateral: Lungs are clear. Negative for pneumothorax. Cardiomediastinal silhouette is within normal limits. Negative for compression deformity. Negative for effusion. Negative for rib fracture or mediastinal widening. Left clavicle: Negative for fracture or dislocation. IMPRESSION: Nonacute studies detailed above [facility] thanks you for the opportunity to care for your patient. Workstation ID: [id number] - [id number] FINAL REPORT Dictated By: Caleb Enriquez MD 03/02/2019 02:23 Assigned Physician: Caleb Enriquez MD Reviewed and Electronically Signed By: Caleb Enriquez MD 03/02/2019 02:25 Transcribed by: [facility] 03/02/2019 02:23 Technologist: BP Alvarado [facility] ED Pat Eduon 06-08-2018 ED Pat [facility] [address] [place], [place] [address] Emergency Department Discharge Instructions HO SIMMS , Please provide this information to your Primary Care/Specialist Name : HO SIMMS Current Date : 06/08/2018 17:33:10 : 1995 12:00 PM Primary Care Physician: Physician, PCP Unknown Diagnosis : Follow-Up Instructions: HO SIMMS has been given these follow-up instructions: FOLLOW-UP APPOINTMENTS: Provider: Specialty: Address: Date: PCP Unknown Physician Family Practice Follow-up as needed Provider: Specialty: Address: Date: Lice clinic Follow-up as needed Comment: Call for an Appointment Laboratory Orders: None Ordered Radiology Orders: None Ordered Diagnostic Tests: None Ordered Procedure(s) and Patient Education(s) : Blank Instruction (Custom); Lice, Adult EMERGENCY SERVICES MEDICATION LIST Lista de Medicaciones de los Servicios de Emergencia Name HO SIMMS [facility]# [id number] PLEASE READ THE FOLLOWING REGARDING YOUR MEDICATIONS Based on the information available during your visit we have given you the medication instructions below. Continue taking medications you took prior to your visit unless you have been told to change. Please share this information with your own doctor. Carry a list of your medications with you in case of an emergency. Update it when medications are stopped, doses are changed, or new medications (including lpyv-lhv-iwjtufk products) are added. If you have any questions, check with your doctor. Por la informaci??n disponible mona do visita, las instrucciones de medicaci??n aparecen debajo. Favor de continuar tomando las medicaciones Ud. robinson?? antes de do visita por lo menos que hay cambios. Favor de compartir esta informaci??n con do medico. Lleva swapnil lista de medicaciones consigo por matthew de emergenc??a. Actualiza la lista cuando Ud. delfino de bre las medicaciones, si cambian las dosis, o si hay nuevas medicaciones a??adidas (incluyendo medicaciones vendidas sin prescripci??n). Favor de preguntar a do medico por cualquier jeremie. THESE ARE THE MEDICATIONS YOU SHOULD BE TAKING etonogestrel (Implanon 68 mg subcutaneous implant) 1 Each Subcutaneous One Time Only. ibuprofen spinosad topical (spinosad topical 0.9% suspension) 1 Application Topical One Time Only. Apply to dry scalp and hair. Wash off after 10 minutes.. Refills: 0. MEDICATIONS GIVEN DURING MEDICAL VISIT None NON-MEDICATION PRESCRIPTION SCHEDULING PHONE NUMBER: MEDICATION CHANGE DETAILS (Not your Final Home Medication List) During the course of your visit, your home medication list was updated with the most current information. The details of those changes are shown below: NEW MEDICATIONS Printed Prescriptions spinosad topical (spinosad topical 0.9% suspension) 1 Application Topical One Time Only. Apply to dry scalp and hair. Wash off after 10 minutes.. Refills: 0. Comment UPDATED MEDICATIONS None UNCHANGED MEDICATIONS Other Medications etonogestrel (Implanon 68 mg subcutaneous implant) 1 Each Subcutaneous One Time Only. Comment ibuprofen Comment STOP TAKING THESE MEDICATIONS None DO NOT TAKE UNTIL YOU TALK TO YOUR DOCTOR None [place] [id number] Emergency Department Discharge Instructions Name: JAG SIMMSELIDA Zacarias Current Date: 06/08/2018 17:33:10 : 1995 12:00 PM Primary Physician: Physician, PCP Unknown We would like to thank you for choosing [facility] for your emergency medical needs. We examined and treated you today on an emergency basis only. This was not a substitute for, or an effort to provide, complete medical care. In most cases, you must let your doctor (or the doctor we referred you to) check you again. Tell your doctor about any new or lasting problems. We cannot recognize and treat all injuries or illnesses in one emergency department visit. After you leave, you should follow the directions attached. When arranging for follow-up care with your physician/referral identify yourself as being seen in the emergency department. For language assistance please call [phone]. Instructions for obtaining X-rays: When following up with your doctor, you may need to take copies of your x-rays that were done in the Emergency Department. If you didn't receive these upon your discharge from the emergency department, please call . When the final report becomes available and it is reviewed, the emergency department will attempt to contact you if there are any changes in your instructions. It is important that you leave accurate information with us on how to contact you. IF you cannot be contacted, YOU must contact the follow-up doctor that you were assigned to make sure that the final official x-ray report does not require a change in your treatment. Instructions for obtaining medical records: If you need a copy of your medical records for follow-up, please contact the Health Information Management Department at . Their office hours are 8 AM- 4:30 PM, Friday through Friday. Please note: Results are not immediately available. Please allow a minimum of 36 hours for documentation and results. If you were prescribed an antibiotic: Antibiotics are life-saving drugs and they need to be used properly. Your team might change your antibiotic because test results show that a different antibiotic would be better to treat your infection. Like all medications, antibiotics have side effects. Some can be serious. This includes the risk of getting an antibiotic-resistan t infection later, which may be difficult to treat. Remember to take your antibiotics as prescribed. If you have any questions please talk to your healthcare team. Seatbelts: There is no doubt that seatbelts save lives. Every day, people without seatbelts have more serious injuries. Have everyone buckle up, using age appropriate seatbelts or car seats, to reduce their risk of injury. Smoking: If you do smoke, we encourage you to stop. Smoking affects all aspects of your health and the health of those around you. Call the [place] [employer] at 4-285-KSUO-USA or the [place] at 7-158-AOU-8246 for more information. High blood pressure: Your screening blood pressure today was 140 mm Hg / 80 mm Hg. Hypertension (high blood pressure) is blood pressure over 120/80. People with hypertension should contact their primary care provider within 30 days to follow up. Check your patient portal for additional blood pressure information. Immunizations: Immunization is a way to protect against deadly infections. Discuss this with your child's pill machine operator, or Public Health Department. Your family practice doctor can determine if you need pneumonia or flu vaccine. [facility] Department can be reached at . Domestic Violence: If you are a victim of domestic violence (physical, verbal, or emotional), you are not alone. Discuss this with your physician or a friend and call Choices Hotline ( for assistance and support. You are the most important factor in your recovery. Follow the provided instructions carefully. Take your medications as prescribed. Most importantly, see a doctor again as discussed. If you have problems that we have not discussed, call or visit your doctor right away. If you do not have a primary care physician, we have provided one for you to follow up with. When you call for an appointment, please inform them that you were seen in the emergency department and the date of your visit. If you are unable to reach your doctor and are still experiencing problems, return to the emergency department. For assistance finding a primary care physician, call the Physician Referral Line at . Suicide Hotline: Your mental and emotional well-being is important. If you are in a mental health crisis or are having thoughts of suicide, please call the nationwide suicide hotline, anytime day or night, at 7-775-547-RROX. Community Rn Cardiology: You may be contacted by your local fire department for a follow up visit from a community resistance welder. The community resistance welder can help with a home safety check; follow up care, and general home care management. Pharmacy Information: Below is a list of 24 hour pharmacies that we are aware of. We suggest that you call the specific pharmacy for their hours before traveling to a location. Hours may vary on holidays. [facility] [address] [place], [place] [address] [phone] [place], [place] [address] [phone] [address] [place], [place] [phone] [address] [place], [place] [phone] [address], [place] [phone] [address], [place] [phone] [address] [place], [place] [phone] Take all medications as directed. If you need prescription assistance, contact the following agencies: ?? Partnership for Prescription Assistance at or www.pparx.org ?? [place] at or www.HitchedPicstrx.org ?? [employer] is a site with many valuable coupons Patient Education Materials HO SIMMS has been given the following patient education materials: Please call the following number(s) and schedule an appointment with the Lice clinics. [facility] Lice Clinics [place], [place] Home Health Care Lice, Adult Lice are tiny insects with claws on the ends of their legs. They are small parasites that live on the human body. Lice often make their home in a person's hair, such as hair on the head or in the pubic area. Pubic lice are sometimes referred to as crabs. Lice alvarado from little round eggs, which are attached to the base of hairs. Lice eggs are also called nits. Lice cause skin irritation and itching in the area of the infested hair. Although having lice can be annoying, it is not dangerous, and lice do not spread diseases. Treatment will usually clear up the symptoms within a few days. CAUSES Lice can spread from one person to another. Lice crawl. They do not fly or jump. To get lice, you must: ???Have very close contact with an infested person. ???Share infested items that touch your skin and hair. These include personal items, such as hats, adams, brushes, towels, clothing, pillowcases, or sheets. Pubic lice spread through sexual contact. RISK FACTORS Although having lice is more common among young children, anyone can get lice. Lice tend to thrive in warm weather, so that type of weather increases the risk. SIGNS AND SYMPTOMS ???Itchiness in the affected area. ???Skin irritation. ???Feeling of something moving in the hair. ???Rash or sores on the skin. ???Tiny flakes or sacs near the scalp. These may be white, yellow, or alcocer. ???Tiny bugs crawling on the hair or scalp. DIAGNOSIS Diagnosis is based on your symptoms and a physical exam. Your health care provider will examine the affected area closely for live lice, tiny eggs (nits), and empty egg cases. Eggs are typically yellow or alcocer in color. Empty egg cases are whitish. Lice are ch or brown. TREATMENT Treatment for lice includes: ???Using a hair rinse that contains a mild insecticide to kill lice. Your health care provider will recommend a prescription or zlnv-lcx-rdlgzos rinse. ???Removing lice, eggs, and egg cases by using a comb or tweezers. ???Washing and bagging your clothing and bedding. women should not use medicated shampoo or cream without first talking to their health care provider. HOME CARE INSTRUCTIONS ???Apply medicated rinse as directed by your health care provider. Follow the label instructions carefully. General instructions for applying rinses may include these steps: ???Put on an old shirt or underwear, or use an old towel in case of staining from the rinse. ???Wash and towel-dry your head or pubic area before applying the rinse if directed to do so. ???When your hair is dry, apply the rinse. Leave the rinse in your hair for the amount of time specified in the instructions. ???Rinse the area with water. ???Comb your wet hair close to the skin and down to the ends, removing any lice, eggs, or egg cases. ???Do not wash the infested hair for 2 days while the medicine kills the lice. ???Repeat the treatment if necessary in 7?10 days. ???Check for remaining lice, eggs, or egg cases every 2?3 days for 2 weeks or as directed. After treatment, the remaining lice should be moving more slowly. ???Remove any remaining lice, eggs, or egg cases using a fine-tooth comb. ???Wash all recently used towels, hats, scarves, jackets, bedding, and clothing in hot water. ???Place unwashable items that may have been exposed in closed plastic bags for 2 weeks. ???Soak all adams and brushes in hot water for 10 minutes. ???Vacuum furniture to remove any loose hair. There is no need to use chemicals, which can be toxic. Lice survive only 1?2 days away from human skin. Eggs may survive only 1 week. ???For pubic lice, tell any sexual partners to seek treatment. ???For head lice, ask your health care provider if other family members or close contacts should be examined or treated as well. ???Keep all follow-up visits as directed by your health care provider. This is important. SEEK MEDICAL CARE IF: ???You develop sores that look infected. ???Your rash or sores do not go away in 1 week. ???The lice or eggs return or do not go away in spite of treatment. MAKE SURE YOU: ???Understand these instructions. ???Will watch your condition. ???Will get help right away if you are not doing well or get worse. This information is not intended to replace advice given to you by your health care provider. Make sure you discuss any questions you have with your health care provider. Document Released: 11/03/2006 Document Revised: 11/24/2015 Document Reviewed: 03/21/2015 [employer] Interactive Patient Education ?2016 [employer] <><><><><><><><><>< ><><><><><><><><><> <><><><><><><><><>< ><><><><> Patient Visit Summary Signature HO SIMMS has been given the following list of patient education materials, prescriptions and follow-up instructions: YANNI Guaman SHYLEIGH M, have received the above patient education materials/instructi ons and have verbalized understanding: _ Date _ Time Patient Signature _ Date _ Time Provider Signature Normal [facility] Vital Signs Date Time Vital Sign Value Performing Clinician Facility 01-03-2024 21:40-0500 Body temperature 96.7 [degF] [facility] 01-03-2024 21:40-0500 Diastolic blood pressure 98 mm[Hg] [facility] 01-03-2024 21:40-0500 Heart rate 78 /min [facility] 01-03-2024 21:40-0500 Respiratory rate 16 /min [facility] 01-03-2024 21:40-0500 SaO2% (BldA) [Mass fraction] 99 % [facility] 01-03-2024 21:40-0500 Systolic blood pressure 138 mm[Hg] [facility] 01-03-2024 21:14-0500 Body height 177.8 cm [facility] 01-03-2024 21:14-0500 Body mass index (BMI) [Ratio] 25.8 kg/m2 [facility] 01-03-2024 21:14-0500 Body weight 81.64 kg [facility] 09-22-2022 22:15-0500 Diastolic blood pressure 86 mm[Hg] Garrett Becerra MD Work Phone: [facility] 09-22-2022 22:15-0500 Heart rate 85 /min Garrett Becerra MD Work Phone: [facility] 09-22-2022 22:15-0500 SaO2% (BldA) [Mass fraction] 100 % Garrett Becerra MD Work Phone: [facility] 09-22-2022 22:15-0500 Systolic blood pressure 127 mm[Hg] Garrett Becerra MD Work Phone: [facility] 09-22-2022 20:32-0500 Respiratory rate 17 /min Garrett Becerra MD Work Phone: [facility] 09-22-2022 19:11-0500 Body height 175.3 cm Garrett Becerra MD Work Phone: [facility] 09-22-2022 19:11-0500 Body mass index (BMI) [Ratio] 20.67 kg/m2 Garrett Becerra MD Work Phone: [facility] 09-22-2022 19:11-0500 Body weight 63.5 kg Garrett Becerra MD Work Phone: [facility] 09-22-2022 17:24-0500 Body temperature 98.6 [degF] Garrett Becerra MD Work Phone: [facility] 01-18-2021 20:05-0500 BMI (Body Mass Index) 19.37 kg/m2 [facility] 01-18-2021 20:05-0500 Body Temperature 98.2 [degF] [facility] 01-18-2021 20:05-0500 Body weight 61.24 kg [facility] 01-18-2021 20:05-0500 BP Diastolic 91 mm[Hg] Replaced by [facility] 01-18-2021 20:05-0500 BP Systolic 138 mm[Hg] [facility] 01-18-2021 20:05-0500 Height 177.8 cm [facility] 01-18-2021 20:05-0500 Pulse (Heart Rate) 100 /min [facility] 01-18-2021 20:05-0500 Pulse Oximetry 99 % [facility] 01-18-2021 20:05-0500 Respiratory Rate 18 /min Emilianopablo Esquivel [facility] Encounters Encounter Date Encounter Type Care Provider Facility Start: 01-03-2024 End: 01-03-20[address] [facility] [address] [facility] Start: 01-03-2024 End: 01-03-2024 Emergency department patient visit [facility] Work Phone: Start: 01-11-2023 End: 01-12-2023 Emergency department patient visit NO PCP PHYSICIAN [facility] Start: 09-22-2022 End: 09-23-2022 Emergency department patient visit GARRETT BECERRA [facility] Start: 09-22-2022 End: 09-22-2022 Emergency department patient visit Garrett Becerra MD Work Phone: [facility] Comment on above: Polysubstance abuse (CMS/HCC) (Primary Dx); Acute right-sided low back pain without sciatica; Lower abdominal pain; Bacterial vaginosis; Otalgia of both ears; Hypomagnesemia Start: 09-22-2022 End: 09-22-2022 Evaluation and management of inpatient Garrett Becerra MD Work Phone: [facility] Start: 01-18-2021 End: 01-18-2021 Emergency department patient visit PHYSICIAN BREANNA [facility] Start: 01-18-2021 End: 01-18-2021 Emergency department patient visit Emiliano Esquivel Work Phone: [facility] Comment on above: Abscess (Primary Dx) ; Encounter for incision and drainage procedure Procedures Date Procedure Procedure Detail Performing Clinician [...] Activity Detail Author Start: 03-27-2024 DTaP,Tdap,and Td Vac cines (2 - Td or Tdap) DTaP,Tdap,and Td Vaccines (2 - Td or Tdap) [facility] Start: 01-03-2024 [facility] Start: 09-22-2022 Adolescent depressio n screening assessment Depression Screening [facility] Start: 09-22-2022 Hepatitis C screening Hepatitis C Sc reening [facility] Start: 09-22-2022 HIV screening HIV Screening [facility] Start: 09-22-2022 Social Influencers o f Health Screening Social Influencers of Health Screening [facility] Start: 07-18-2022 Influenza vaccination Influenza Vacc ine (#1) [facility] Start: 01-22-2021 End: 01-22-2021 Office Visit 01/22/2021 Office Visit Primary Care Keturah Whitley MD [facility] [address] [place] [address] [phone] [facility] [place] Start: 07-18-2020 Influenza vaccinatio n given Sequential Influenza Vaccine (#1) [facility] Start: 01-15-2017 Screening for malign ant neoplasm of cervix Cervical Cancer Screening: Pap Smear [facility] Start: 01-15-2014 Hepatitis C antibody , confirmatory test Hepatitis C Screening [facility] Start: 2012 COVID-19 Vaccine (1 of 2) COVI D-19 Vaccine (1 of 2) [facility] Start: 01-15-2011 HIV screening HIV Screening [facility] Start: 2008 Adolescent depressio n screening assessment Depression Screening (PHQ9) [facility] Start: 01-15-2007 HPV Vaccines (1 - 2- dose series) HPV Vaccines (1 - 2-dose series) [facility] Start: 01-15-2007 Vaccination for shira n papillomavirus HPV Vaccines (1 - 2-dose series) [facility] Start: 01-15-1999 History and physical examination, annual for health maintenance Wellness Visit [facility] Start: 1996 COVID-19 Vaccine (#1) COVID-19 Vacci ne (#1) [facility] Start: 1996 Hepatitis B Vaccines (1 of 3 - 3-dose series) Hepatitis B Vaccines (1 of 3 - 3-dose series) [facility] Start: 1996 Screening for malign ant neoplasm of cervix Pap Smear [facility] Start: 1996 Tetanus vaccination Tetanus: Every 1 0yrs [facility] Bacteria identified in Urine by Culture Culture urine Microbiology STAT 09/22/2022 8:32 PM EST [facility] End: 09-22-2022 Neisseria gonorrhoeae DNA [Presence] in Urine by MOE with probe detection [facility] Work Phone: Comment on above: STAT for 1 Occurrenc es starting 09/22/2022 until 09/22/2022 Patient Education ED Animal Bite (General) [facility] Work Phone: Immunizations Immunization Date Immunization Notes Care Provider [facility] 08-05-2013 influenza virus vacc ine, unspecified formulation Garrett Becerra MD Work Phone: [facility] Payers Date Payer Category Payer Medicaid [id number] 2024 Self-pay 2016 Unknown [id number] 1996 Unknown [id number] Unknown [id number] Social History Date Type Detail Facility Start: 01-18-2021 End: 09-22-2022 Tobacco smoking status NHIS Never smoker [facility] Start: 01-18-2021 Tobacco use and exposure Current user [facility] History of tobacco use Chews Tobacco [facility] Start: 01-18-2021 Alcohol intake Current non-dr energy trader of alcohol (finding) [facility] Start: 1995 Sex Assigned At Not on file [facility] Start: 09-12-2022 End: 09-22-2022 Exposure to SARS-CoV-2 (event) Not sure [facility] Start: 09-22-2022 Tobacco use and exposure Smokeless tobacco non-user [facility] Start: 09-22-2022 Alcohol intake Lifetime non-d johnna (finding) [facility] Start: 01-03-2024 Tobacco smoking stat us NHIS Unknown if ever smoked [facility] Start: 1995 Sex Assigned At Female [facility] Discharge summary 01-03-2024 Note Date & Type Note Facility 01-03-2024 Discharge summary Note Date/Time January 03, 2024 9:28pm [facility] Medical Records Department [address] [place] [address] Emergency Department Summary 01/03/24 MR#: [id number] Acct: [id number] Name: HO SIMMS Rep #:[id number] : 1995 28 From: Son Haddad MD PCP: Status:REG ER Location: ED HPI <SAUL Chavez - Last Filed: 01/03/24 21:33> History of Present Illness Chief Complaint: Bite Narrative Narrative: Patient presenting today with a dog bite to her bilateral hands that she got this evening to from her neighbors dog. She reports that their dog was trying to come in her trailer and she tried pushing him out of the door when he bit herhands. Her tetanus is up-to-date. She denies any other injury. The dog is up-to-date with vaccines including rabies. [facility] <SAUL Chavez - Last Filed: 01/03/24 21:33> [facility] Medical History (Updated 01/03/24 @ 21:31 by Minoo Paulino) Dog bite Home Medications amoxicillin 875 mg-potassium clavulanate 125 mg tablet 1 tab PO BID #10 tabs 01/03/24 [Rx Last Taken Unknown] Allergy/AdvReac Type Severity Reaction Status Date / Time No Known Allergies Allergy Verified 01/03/24 21:14 ROS <SAUL Chavez - Last Filed: 01/03/24 21:33> ROS ED Constitutional Constitutional ED: Denies chills or fever(s) Cardiovascular Cardiovascular: Denies chest pain Respiratory/Chest Respiratory/Chest: Denies cough or dyspnea Gastrointestinal Gastrointestinal: Denies abdominal pain, nausea or vomiting Musculoskeletal Musculoskeletal: Denies arthralgias or myalgias Integumentary Reports other Details: Puncture wounds Neurologic Neurologic: Denies paresthesias EXAM <SAUL Chavez - Last Filed: 01/03/24 21:33> Physical Exam Const Vital Signs: 01/03/24 21:14 Temperature 96.7 F L Temperature Source Temporal Pulse Rate 92 Respiratory Rate 16 Blood Pressure 171/97 H Blood Pressure Mean 121 Pulse Ox 99 Oxygen Delivery Method Room Air Positive well nourished, well developed and no apparent distress General Appearance ED: well developed HEENT Reports normocephalic and head/scalp atraumatic Mouth ED: Yes moist mucous membranes normal Eyes PERRL and EOMs intact bilaterally Neck full ROM and supple Chest Wall inspection of chest normal Resp normal respiratory effort and clear to auscultation bilaterally Cardio regular rate and regular rhythm GI soft to palpation, non-tender, non-distended and no masses Back/Spine normal ROM and normal to inspection Extremity normal to inspection and full ROM Extremity Narrative: 2 cm superficial linear laceration to the volar aspect of the right wrist, left second and third fingers have small puncture wounds. Full flexion and extensionat the wrist, MCPs, PIP, and DIP joints of the bilateral upper extremities. Neuro oriented x3, CN's II-XII intact bilaterally, moves all extremities, no focal motor deficits and no sensory deficits noted Sensorium / Orientation: awake and alert Psych mental status grossly normal and thought process normal <Dr. Son Haddad MD - Last Filed: 01/03/24 21:38> Physical Exam Const Vital Signs: 01/03/24 21:14 Temperature 96.7 F L Temperature Source Temporal Pulse Rate 92 Respiratory Rate 16 Blood Pressure 171/97 H Blood Pressure Mean 121 Pulse Ox 99 Oxygen Delivery Method Room Air MDM <SAUL Chavez - Last Filed: 01/03/24 21:33> [facility] Narrative Medical decision making narrative: Patient presenting today due to a dog bite that occurred this evening. She is up-to-date with tetanus. The dog is up-to-date on vaccines. She is well-appearing and in no acute distress. Wounds will be cleaned and bandaged with bacitracin ointment. She will be started on Augmentin. No suture repair is needed as the wounds are superficial. Return instructions given. She will be discharged home in stable condition and is comfortable with plan. <Dr. Son Haddad MD - Last Filed: 01/03/24 21:38> [facility] Narrative Medical decision making narrative: Patient presenting today due to a dog bite that occurred this evening. She is up-to-date with tetanus. The dog is up-to-date on vaccines. She is well-appearing and in no acute distress. Wounds will be cleaned and bandaged with bacitracin ointment. She will be started on Augmentin. No suture repair is needed as the wounds are superficial. Return instructions given. She will be discharged home in stable condition and is comfortable with plan. I have personally performed a face to face assessment of the patient and have reviewed the LISS Note. I performed a substantive portion of the visit including all aspects of the following. My perry findings include: History is patient was bit by dog. Dog immunization up-to-date. She has no allergies to antibiotics. Medical Decision Making patient has multiple scrapes and abrasions to the volar and dorsal surface of the right wrist. She has puncture wound to the left long and ring finger. The extensor commonest tendon is intact. The flexors digitorum superficialis and flexor digitorum profundus are intact. Discrimination is normal. Median, radial and ulnar function intact. Patient has puncture wounds. These will not be sutured. Patient was placed on Augmentin which is the antibiotic of choice for dog bites. Patient has been given appropriate instructions when to return. Other additions or changes: None Discharge Plan Triage Chief Complaint: Bite ED Midlevel Provider: Nahomy Hall ED Provider: Son Haddad Dx/Rx/DC Orders Clinical Impression: Dog bite Instructions: ED Animal Bite (General) Prescriptions: New amoxicillin-pot clavulanate 875-125 mg tablet 1 tab PO BID Qty: 10 0RF Activity Restrictions/Additional Instructions: Take antibiotics as directed, return for any worsening of your symptoms. Disposition Disposition: Home, Self Care What to do if you have Problems For any increased pain, shortness of breath, bleeding, nausea or vomiting, chestpain, or any unexpected problems, contact your Primary Care Provider. Call [facility] ([phone]) or report to the closest Emergency Room. Call 911 if necessary. 01/03/242137 <Electronically signed by Son Haddad MD> Cosigner Signature (if applicable): 01/03/242132 <Electronically signed by Nahomy HUGHES> CC: ~ Signed [facility] Work Phone: History of Present illness Narrative 09-22-2022 Garrett Becerra MD - 09/22/2022 5:20 PM EST Note Date & Type Note Facility 09-22-2022 History of Presen t illness Narrative [facility] Emergency Department Note History of Present [...] Urine Yellow Clarity, Urine Hazy (*) Specific [place] Urine 1.015 pH, Urine 6.0 Leukocytes, Urine [...] Procedure Abnormality Status --------- ------ CBC auto differential[[id number]] Abnormal Final result Please view results for [...] Prior medical records: Reviewed Vitals Trend: Vitals: 09/22/22191009/22/[id number]/22/[id number]/222214 BP: (!) 137/98 129/82 127/86 Pulse: 86 96 85 Resp: 21 17 Temp: TempSrc: SpO2: 100% 97% 100% Weight: 63.5 kg (140 lb) Height: 1.753 m (69) ED Administered Meds: Medications sodium chloride 0.9 [...] MD Impression Final diagnoses: [F19.10] Polysubstance abuse (CMS/[facility]) [M54.50] Acute right-sided low back pain without sciatica [R10.30] Lower abdominal pain [N76.0, B96.89] Bacterial vaginosis [H92.03] Otalgia of both ears [E83.42] Hypomagnesemia Garrett Becerra MD 09/22/22 [id number] Garrett Becerra MD 09/22/22 [id number] documented in this encounter [facility] Evaluation note Note Date & Type Note Facility Evaluation note Diagnosis Polysubstance abuse ([facility])- Primary Other, mixed, or unspecified nondependent drug abuse, unspecified Acute right-sided low back pain without sciatica Lower abdominal pain Abdominal pain, other specified site Bacterial vaginosis Unspecified vaginitis and vulvovaginitis Otalgia of both ears Hypomagnesemia Disorders of magnesium metabolism documented in this encounter [facility] Evaluation note Note Date & Type Note Facility Evaluation note No assessment information availa ble [facility] Work Phone: Hospital Discharge instructions Attachments Note Date & Type Note Facility Hospital Discharge instructions The following attachments cannot be sent through Care Everywhere.Substance Use Disorder (Italian)Bacterial Vaginosis (Italian)documented in this encounter [facility] Discharge instructions Note Date & Type Note Facility Hospital Discharge instructions Additional Instructions Take antibiotics as directed, return for any worsening of your symptoms. [facility] Work Phone: Summary Purpose Family History No Family History Records FoundNo Family History Records FoundNo Family History Records FoundNo Family History Records Found Advance Directives No Advanced Directives Records FoundDocuments on File Type Date Recorded Patient Ekg Monitor Expl anation Advance Directives and Livin g Will 01/18/2021 8:38 PM Advance Directive Response Recorded Date/ Time Living Will No January 03 9:39pm Power of Offshore Diver No January 03, 2024 9:39pm Hospital Course Note EMERGENCY DEPARTMENT DISCHAR GE SUMMARY PATIENT NAME:HO SIMMS MRN: [id number] AGE: 23 Years SEX: Female PHONE:[phone] DOS: 06/08/2018 4:31 PM : 1995 ATTENDING [...] DEPARTMENT DISCHAR GE SUMMARY PATIENT NAME:HO SIMMS AGE: 24 Years SEX: Female PHONE:[id number] DOS: 05/07/2019 12:15 PM : 1995 ATTENDING PHYSICIAN:Yohannes Carrion DO PCP: Physician, No PCP CHIEF COMPLAINT: social issues Allergies NKA Problems Active No current problems or disability DISCHARGE DIAGNOSIS: DISCHARGE INSTRUCTIONS: Work Release (CO-W) Bowen (Custom); Blank Instruction (CUSTOM) ED PHYSICIAN DOCUMENTATION: [...] at 11:00 am with Keturah Whitley MD [facility] [address] [id number] Please arrived 15 minute early, If your unable to make the appointment, please call and reschedule. * Additional Instructions* Emiliano Esquivel MD - 01/18/2021 We made a new patient appointment for you on FridayJanuary 22 at 11:00 am [facility] [address] [address] Please arrived 15 minute early, If your unable to make the appointment, please call and reschedule. Please follow up with your family doctor or one of your choosing. You may find a provider through the [facility] Physician Referral Service by calling [phone]) or by visiting [email or web address] Thank you for allowing us the opportunity [...] sent through Care Everywhere. * Abscess: Skin (Italian) documented in this encounter Assessments Diagnosis Abscess- Primary Cellulitis and abscess of unspecified site Encounter for incision and drainage procedure Chief Complaint and Reason for Visit Chief Complaint DOG BITE Additional Source Comments INFORMATION SOURCE (unrecogn ized section and content) DATE CREATED AUTHOR 05/22/2019 [facility] DATE CREATED AUTHOR AUTHOR'S ORGANIZ ATION 01/25/2021 [facility] DATE CREATED AUTHOR AUTHOR'S ORGANIZ ATION 01/12/2023 [facility] DATE CREATED AUTHOR AUTHOR'S ORGANIZ ATION 01/07/2024 [facility] Reason for Visit (unrecogniz ed section and content) Reason Comments Abscess Reason Comments Abdominal Pain Left flank pain for few days urinary frequency Faith Draper RN - 01/18/2021 9:29 PM ESTStirMelissa mancini RN - 01/18/2021 8:03 PM EST ED [...] Ordered Prescriptions (unrec ognized section and content) Prescription Sig Dispensed Refills Start Date End Da te ibuprofen (ADVIL,MOTRIN) 600 mg tablet Take 1 tablet (600 mg total) by mouth every 6 (six) hours if needed for mild pain or moderate pain for up to 7 days. 28 tablet 0 09/22/2022 09/29/2022 pseudoephedrine (SUDAFED) 120 mg 12 hr tablet Take 1 tablet (120 mg total) by mouth every 12 (twelve) hours. Do not crush, chew, or split. 14 each 0 09/22/2022 09/22/2023 metroNIDAZOLE (FLAGYL) 500 mg tablet Take 1 tablet (500 mg total) by mouth 2 (two) times a day for 7 days. Do not use mouth wash or consume alcohol until 48 hours after last dose 14 each 0 09/22/2022 09/29/2022 Scheduled Active and Recently Administ ered Medications (unrecognized section and content) Medication Order 09/20/2022 09/21/2022 09/22/2022 ketorolac (TORADOL) injection 30 mg (COMPLETED) 30 mg, intravenous, Once, On 09/22/22 at 1834, For 1 dose 1918 (Given - Provid er: Martina Naik RN - Comment: pt states no chance shes ) magnesium sulfate 2 gram/50 mL (4 %) IVPB 2 g (COMPLETED) 2 g, intravenous, at 25 mL/hr, Administer over 2 Hours, Once, On 09/22/22 at 1834, For 1 dose 1918 (New Bag - Prov ider: Martina Naik RN)2220 (Stopped - Provider: Jania Washington RN) sodium chloride 0.9 % bolus 1,000 mL (COMPLETED) 1,000 mL, intravenous, at 2,000 mL/hr, Administer over 30 Minutes, Once, On 09/22/22 at 1834, For 1 dose 1918 (New Bag - Prov ider: Martina Naik RN)2220 (Stopped - Provider: Jania Washington RN) Care Teams (unrecognized sec tion and content) [employer] Relationship Specialty Start Date End Date Physician, No Pcp PCP - General 09/22/22 Team Status: Inactive Member Role Status Dates Dr. Son Haddad MD Emergency Provider Active Goals (unrecognized section and content) Goals may be documented in a n alternate section FOR RECORDS PERTAINING TO PATIENTS WHO ARE [...] BE BASED ON THE PRIMARY CLINICAL RECORDS. [email or web address] provides no warranty or guarantee of the accuracy or completeness of information in this document.
--- OUTSIDE RECORDS SUMMARY | 2025-08-20 23:52 | XMS RPT_ITS | CCD ---
Author Organization [facility] Informformerly [facility] Partnership PROCESSOR SOLID PROPELLANT [facility] Care Team Providers Care Analog Design Engineer Name Role Phone NO, PHYSICIAN Primary Care [...] Department Summary on 01-03-2024 Emergency Department Summary [facility] Medical Records Department [address] [place] [address] Emergency Department Summary 01/03/24 MR#: [id number] Acct: [id number] Name: HO SIMMS Rep #: [id number] : 1995 28 From: Son Haddad MD [...] dog is up-to-date with vaccines including rabies. [facility] Medical History (Updated 01/03/24 @ 21:31 [...] and ulnar (more content not included)... Normal [facility] Bacterial sialidase Ql (Unsp spec)on 09-22-2022 T. vaginalis Ag IA Ql (Genital specimen) Negative Normal Negative [facility] Comment on above: Order Comment: Self swab Performed By: #### 4 1477-1 #### [facility] [address] [place] [address] Bacterial sialidase Ql (Unsp spec)Ordered By: Morgan Patel on 09-22-2022 Interpretation and review of laboratory results Abnormal [facility] Basic metabolic 2000 panelon 09-22-2022 Anion gap [Moles/Vol] 7 mmol/L 6 - 18 [facility] Calcium [Mass/Vol] 8.9 mg/dL 8.9 - 10. 3 mg/dL [facility] Chloride [Moles/Vol] 98 mmol/L 98 - 10 7 mmol/L [facility] CO2 [Moles/Vol] 26 mmol/L 22 - 32 mmol/L [facility] Creatinine [Mass/Vol] 0.79 mg/dL 0.60 - 1.30 mg/dL [facility] GFR/1.73 sq M.predicted MDRD (S/P/Bld) [Vol rate/Area] 106 mL/min/{1.73_m2} - PINF [facility] Comment on above: Effective August 25, 2022, calculation based on the Chronic Kidney Disease Epidemiology Collaboration (CKD-EPI) equation refit without adjustment for race. Glucose [Mass/Vol] 137 mg/dL High 70 - 99 mg/dL [facility] Potassium [Moles/Vol] 3.8 mmol/L 3.6 - 5.1 mmol/L [facility] Sodium [Moles/Vol] 131 mmol/L Low 136 - 145 mmol/L [facility] Urea nitrogen [Mass/Vol] 10 mg/dL 8 - 20 mg/dL [facility] Urea nitrogen/Creatinine [Mass ratio] 12.7 mg/mg 12.0 - 20.0 [facility] Beta HCG ( test) Ql on 09-22-2022 HCG ( test) Ql Negative Negative [facility] Interpretation and review of laboratory results Normal [facility] CT ABDOMEN PELVIS WO CONTRAS Ton 09-22-2022 [...] Self Edit Transcribed Date: 09/22/2022 19:07 Normal [facility] CT Pelvis limited WO contras ton [...] By: Self Edit Transcribed Date: 09/22/2022 19:07 [facility] Radiology Study observation (narrative) [facility] CT Pelvis limited WO contras tOrdered By: Caleb Enriquez on 09-22-2022 [facility] Work Phone: Drugs identified Screen Nom (U)on 09-22-2022 Amphetamine Screen, Ur Detected Abnormal Not Detected [facility] Comment on above: Order Comment: The [...] request. Performed By: #### 1 2286-1 #### [facility] [address] [place] [address] Barbiturate Screen, Ur Not detected Normal Not Detected [facility] Comment on above: Order Comment: The [...] request. Performed By: #### 1 2286-1 #### [facility] [address] [place] [address] Benzodiazepine Screen, Ur Not detected Normal Not Detected [facility] Comment on above: Order Comment: The [...] request. Performed By: #### 1 2286-1 #### [facility] [address] [place] [address] Cannabinoid (THC) Screen, Ur Detected Abnormal Not Detected [facility] Comment on above: Order Comment: The [...] request. Performed By: #### 1 2286-1 #### [facility] [address] [place] [address] Cocaine Screen, Ur Detected Abnormal Not Detected Moun [facility] Comment on above: Order Comment: [...] request. Performed By: #### 1 2286-1 #### [facility] [address] [place] [address] Methadone Screen, Urine Not detected Normal Not Detected [facility] Comment on above: Order Comment: The [...] request. Performed By: #### 1 2286-1 #### [facility] [address] [place] [address] Opiate Screen, Ur Not detected Normal Not Detected Jul[facility] Comment on above: Order Comment: [...] request. Performed By: #### 1 2286-1 #### [facility] [address] [place] [address] Oxycodone Screen, Ur Not detected Normal Not Detected [facility] Comment on above: Order Comment: The [...] request. Performed By: #### 1 2286-1 #### [facility] [address] [place] [address] Amphetamines Ql (U) Detected Abnormal Not Detected [...] Interpretation and review of laboratory results Abnormal [facility] Methadone Screen Ql (U) Not detected Not [...] determinations. Confirmatory testing is available on request. [facility] Ethanol (Bld) [Moles/Vol]on 09-22-2022 Ethanol [Mass/Vol] mg/dL NINF - 10 mg/dL [facility] Interpretation and review of laboratory results Normal [facility] Hemogram and platelets WO di fferential panel (Bld)on 09-22-2022 Basophils (Bld) [#/Vol] 0.04 10*3/uL Normal 0.00-0.20 [facility] Comment on above: Performed By: #### 2 4317-0 #### [facility] [address] [place] [address] Basophils/100 WBC (Bld) 0.6 % Normal 0.0-2.0 [facility] Comment on above: Performed By: #### 2 4317-0 #### [facility] [address] [place] [address] Eosinophils (Bld) [#/Vol] 0.03 10*3/uL Normal 0.00-0.70 [facility] Comment on above: Performed By: #### 2 4317-0 #### [facility] [address] [place] [address] Eosinophils/100 WBC (Bld) 0.4 % Normal 0.0-7.0 [facility] Comment on above: Performed By: #### 2 4317-0 #### [facility] [address] [place] [address] Erythrocyte distribution width (RBC) [Ratio] 11.9 % Normal 11.0-14.8 [facility] Comment on above: Performed By: #### 2 4317-0 #### [facility] [address] [place] [address] Hematocrit (Bld) [Volume fraction] 41.6 % Normal 34.3-47.9 [facility] Comment on above: Performed By: #### 2 4317-0 #### [facility] [address] [place] [address] Hemoglobin (Bld) [Mass/Vol] 14.3 g/dL Normal 12.0-16.0 [facility] Comment on above: Performed By: #### 2 4317-0 #### [facility] [address] [place] [address] Immature granulocytes (Bld) [#/Vol] 0.02 10*3/uL Normal [facility] Comment on above: Performed By: #### 2 4317-0 #### [facility] [address] [place] [address] Immature granulocytes/100 WBC (Bld) 0.3 % Normal 0.0-1.2 [facility] Comment on above: Performed By: #### 2 4317-0 #### [facility] [address] [place] [address] Lymphocytes (Bld) [#/Vol] 0.31 10*3/uL Low 1.00-4.80 [facility] Comment on above: Performed By: #### 2 4317-0 #### [facility] [address] [place] [address] Lymphocytes/100 WBC (Bld) 4.6 % Low 17.9-49.6 [facility] Comment on above: Performed By: #### 2 4317-0 #### [facility] [address] [place] [address] MCH 29.4 pcg Normal 27.0-34.0 [facility] Comment on above: Performed By: #### 2 4317-0 #### [facility] [address] [place] [address] MCHC (RBC) [Mass/Vol] 34.4 g/dL Normal 30.8-35.3 [facility] Comment on above: Performed By: #### 2 4317-0 #### [facility] [address] [place] [address] MCV (RBC) [Entitic vol] 85.4 fL Normal 80.0-97.0 [facility] Comment on above: Performed By: #### 2 4317-0 #### [facility] [address] [place] [address] Monocytes (Bld) [#/Vol] 0.81 10*3/uL Normal 0.00-0.90 [facility] Comment on above: Performed By: #### 2 4317-0 #### [facility] [address] [place] [address] Monocytes/100 WBC (Bld) 12.0 % Normal 0.0-12.0 [facility] Comment on above: Performed By: #### 2 4317-0 #### [facility] [address] [place] [address] Neutrophils Absolute 5.53 K/mcL Normal 1.80-7.70 Moun [facility] Comment on above: Performed By: #### 2 4317-0 #### [facility] [address] [place] [address] Neutrophils/100 WBC (Bld) 82.1 % High 38.1-75.5 [facility] Comment on above: Performed By: #### 2 4317-0 #### [facility] [address] [place] [address] Platelet mean volume (Bld) [Entitic vol] 9.6 fL Normal 6.2-12.1 [facility] Comment on above: Performed By: #### 2 4317-0 #### [facility] [address] [place] [address] Platelets (Bld) [#/Vol] 199 10*3/uL Normal 142-424 [facility] Comment on above: Performed By: #### 2 4317-0 #### [facility] [address] [place] [address] RBC (Bld) [#/Vol] 4.87 10*6/uL Normal 3.74-5.34 [facility] Comment on above: Performed By: #### 2 4317-0 #### [facility] [address] [place] [address] WBC (Bld) [#/Vol] 6.7 10*3/uL Normal 4.6-10.2 [facility] Comment on above: Performed By: #### 2 4317-0 #### [facility] [address] [place] [address] Basophils (Bld) [#/Vol] 0.04 10*3/uL [facility] [...] mean volume (Bld) [Entitic vol] 9.6 fL [facility] th Platelets (Bld) [#/Vol] 199 10*3/uL [facility] RBC (Bld) [#/Vol] 4.87 10*6/uL [facility] WBC (Bld) [#/Vol] 6.7 10*3/uL [facility] Hepatic function 2000 panelo n 09-22-2022 Albumin [Mass/Vol] 4.4 g/dL 3.5 - 4.8 g/dL [facility] ALP [Catalytic activity/Vol] 48 U/L [facility] ALT [Catalytic activity/Vol] 16 U/L [facility] AST [Catalytic activity/Vol] 19 U/L [facility] Bilirubin [Mass/Vol] 0.4 mg/dL 0.3 - 1 .2 mg/dL [facility] Bilirubin.direct [Mass/Vol] 0.1 mg/dL NINF - 0.5 mg/dL [facility] Bilirubin.indirect [Mass/Vol] 0.3 mg/dL 0.0 - 1.0 mg/dL [facility] Protein [Mass/Vol] 6.8 g/dL 6.1 - 7.9 g/dL [facility] Lipaseon 09-22-2022 Lipase [Catalytic activity/Vol] 35 U/L [facility] Magnesiumon 09-22-2022 Magnesium [Mass/Vol] 1.5 mg/dL Low 1.8 - 2 .5 mg/dL [facility] Magnesium [Mass/Vol]on 09-22 Ethanol Level <10 Normal <10 [facility] Comment on above: Performed By: #### 1 9123-9 #### [facility] [address] [place] [address] N gonorrhoea DNA Ur Ql MOE+p robeon 09-22-2022 N. gonorrhoeae DNA MOE+probe Ql (U) N. gonorrhoeae, RNA Probe Status = F Negative Chlamydia, RNA Probe Status = F Negative Normal Negative [facility] Comment on above: Order Comment: Self swab Performed By: #### 2 1416-3 #### [facility] ([facility] [address] [place] [address] No Panel Informationon 09-22 Interpretation and review of laboratory results Normal [facility] Interpretation and review of laboratory results Abnormal [facility] Rapid bacterial vaginosis sc reenOrdered By: Morgan Patel on 09-22-2022 Bacterial sialidase Ql (Unsp spec) Positive Abnormal Negative [facility] T. vaginalis Ag IA Ql (Genit al specimen)on 09-22-2022 Interpretation and review of laboratory results Normal [facility] T. vaginalis Wet prep Ql (Genital specimen) Negative Negative [facility] Urinalysis dipstick W Reflex Culture panel (U)on 09-22-2022 Bacteria identified Cx Nom (U) 1 ORGANISM 202 Abnormal >281581 CFU/mL Escherichia coli The organism value for [...] Islt >=320 ug/ml Resistant Invalid Interpretation Code [facility] Comment on above: Performed By: #### 5 7019-2 #### [facility] [place] [facility]) [facility] [address] [place] [address] Bacteria, Urine Rare Abnormal None [facility] Comment on above: Performed By: #### 7019-2 #### [facility] [place] [facility] [address] [place] [address] Bilirubin, Urine Negative Normal Negative [facility] Comment on above: Performed By: #### 5 7019-2 #### [facility] [place] [facility] [address] [place] [address] Blood, Urine 2+ Abnormal Negative [facility] Comment on above: Performed By: #### 7019-2 #### [facility] [address] [place] [address] Clarity (U) Hazy Abnormal Clear [facility] Comment on above: Performed By: #### 7019-2 #### [facility] [place] [facility] [address] [place] [address] Color (U) Yellow Normal Yellow [facility] Comment on above: Performed By: #### 7019-2 #### [facility] [place] [facility] [address] [place] [address] Glucose Ql (U) Normal Normal Normal [facility] Comment on above: Performed By: #### 7019-2 #### [facility] [place] [facility] [address] [place] [address] Ketones Ql (U) 5 mg/dL Abnormal Negative [facility] Comment on above: Performed By: #### 7019-2 #### [facility] [place] [facility] [address] [place] [address] Leukocytes, Urine 25 WBCs/mcL Abnormal Negative [facility] Comment on above: Performed By: #### 5 7019-2 #### [facility] [place] [facility] [address] [place] [address] Mucus, UA Rare Abnormal None [facility] Comment on above: Performed By: #### 5 7019-2 #### [facility] [place] [facility] [address] [place] [address] Nitrite, Urine Negative Normal Negative [facility] Comment on above: Performed By: #### 5 7019-2 #### [facility] [address] [place] [address] pH (U) 6.0 [pH] Normal 5.0-8.0 [facility] Comment on above: Performed By: #### 5 7019-2 #### [facility] [place] [facility] [address] [place] [address] Protein, Urine Negative Normal Negative [facility] Comment on above: Performed By: #### 5 7019-2 #### [facility] [place] [facility] [address] [place] [address] RBC LM.HPF (Urine sed) [#/Area] 4 /[HPF] Normal 0-5 [facility] Comment on above: Performed By: #### 5 7019-2 #### [facility] ([facility]) [facility] [address] [place] [address] Specific Converse Urine 1.015 Normal 1.002-1.030 [facility] Comment on above: Performed By: #### 5 7019-2 #### [facility] [address] [place] [address] Squamous Epithelial, Urine Many Abnormal None [facility] Comment on above: Performed By: #### 5 7019-2 #### [facility] [address] [place] [address] Urobilinogen, Urine Normal Normal Normal [facility] Comment on above: Performed By: #### 5 7019-2 #### [facility] [address] [place] [address] WBC LM.HPF (Urine sed) [#/Area] 4 /[HPF] Normal 0-5 [facility] Comment on above: Performed By: #### 5 7019-2 #### [facility] [address] [place] [address] Bacteria LM.HPF (Urine sed) [#/Area] Rare Abnormal None /HPF [facility] Bilirubin Ql (U) Negative Negative mg/dL [facility] Clarity (U) Hazy Abnormal Clear [facility] Color (U) Yellow Yellow [facility] [...] 6.0 [pH] 5.0 - 8.0 pH [facility] th Protein (U) [Mass/Vol] Negative Negative mg/dL [facility] RBC LM.HPF (Urine sed) [#/Area] 4 /[HPF] [facility] Specific gravity (U) [Rel density] 1.015 1.002 - 1.030 [facility] Urobilinogen (U) [Mass/Vol] Normal Normal mg/dL [facility] WBC LM.HPF (Urine sed) [#/Area] 4 /[HPF] [facility] ED Pat Calixto 05-07-2019 ED [facility] Emergency Department [address] [place], [place] [address] Emergency Department Discharge Instructions HO [...] and Patient Education(s) : Work Release (CO-W) Drums (Custom); Blank Instruction (CUSTOM) EMERGENCY SERVICES MEDICATION LIST Lista de Medicaciones de los Servicios de Emergencia Name HO SIMMS MRN (COL)-[id number] Acc# [id number] PLEASE READ THE FOLLOWING REGARDING YOUR MEDICATIONS [...] doses are changed, or new medications (including udtq-amm-ilpuexb products) are added. If you have any [...] UNTIL YOU TALK TO YOUR DOCTOR None [facility] Emergency Department [address] [place], [place] [address] Emergency Department Discharge Instructions Name: HO SIMMS Current Date: 05/07/2019 12:55:33 : 1995 12:00 PM Primary Physician: Physician, No PCP We would like to thank you for choosing [facility] for your emergency medical needs. We examined [...] health of those around you. Call the [place] [employer] at 1-056-ACTU-[place] or the [place] [employer] at 3-043-VKZ-6129 for more information. High blood pressure: Your [...] deadly infections. Discuss this with your child's emt b, or Public Health Department. Your family practice doctor can determine if you need pneumonia or flu vaccine. [facility] Department can be reached at . Substance Abuse Program: Concerns with addiction to alcohol, benzodiazepines (Ativan or Xanax) and Opiates (Heroin, Percocet, OxyContin, Methadone or Fentanyl)? [facility] offers an inpatient Substance Abuse Program to help treat the symptoms associated with medical detoxification of addictive substances. The new program offers care for non- adults (18 and older) looking to break the chain to addictive chemicals. The Substance Abuse Program is a voluntary inpatient admission and it starts with a pre-screening phone call to a pediatric social worker. During the call, goals and objectives for recovery and how the patient will transition to outpatient care will be established. Please call [phone] to get help today. Domestic Violence: If [...] suicide hotline, anytime day or night, at 3-986-613-VLIS. Community Conduit Mechanic: You may be contacted by your local fire department for a follow up visit from a community allocation analyst. The community allocation analyst can help with a home safety check; follow up care, and general home care management. Pharmacy Information: Below is a list of 24 hour pharmacies that we are aware of. We suggest that you call the specific pharmacy for their hours before traveling to a location. Hours may vary on holidays. [facility] Pharm[facility] [address] [place] [address] [phone] [place] [address] [phone] [place] [address] [phone] [phone] [address] [place], [place] [phone] [address] [place] [address] [phone] [place] [address] [phone] Take all medications as directed. If you need prescription assistance, contact the following agencies: ?? [facility] for Prescription Assistance at or www.[employer].org ?? [facility] at or www.HealogicarSemtronics Microsystems.org ?? [employer].Sipwise.Amplidata is a site with many valuable coupons Patient Education Materials HO SIMMS has been given the following patient education materials: [facility] Emergency Department [address] [place] [address] Work Excuse Form This notice verifies that [...] _ Date _ Time Provider Signature Normal [facility] ED Pat [facility] 03-02-2019 ED [facility] [address] [place] [id number] Emergency Department Discharge Instructions HO SIMMS , [...] Follow-up as needed Provider: Specialty: Address: Date: [facility] business [phone] [facility] [address] () 5 to 7 days Comment: Call for an Appointment Provider: Specialty: Address: Date: Return to Emergency Department Follow-up as needed Laboratory Orders: None Ordered Radiology Orders: Name: Status: XR Clavicle Complete LT Completed XR Chest Inspiration/Expirat ion Completed XR Chest 1 View Completed Diagnostic Tests: None Ordered Procedure(s) and Patient Education(s) : [facility] Patient Education (CUSTOM); [place] - Clinic List - All (CUSTOM); Chest Wall Pain; Free Text Instruction (CUSTOM) EMERGENCY SERVICES MEDICATION LIST Lista de Medicaciones de los Servicios de Emergencia Name HO SIMMS MRN ([facility])-[id number] PLEASE READ THE FOLLOWING REGARDING YOUR MEDICATIONS [...] doses are changed, or new medications (including swvw-hdd-lcntbtk products) are added. If you have any [...] UNTIL YOU TALK TO YOUR DOCTOR None [place] [address] [place], [place] [address] Emergency Department Discharge Instructions Name: YANNIERICEMERY Zacarias Current Date: 03/02/2019 03:10:39 : 1995 12:00 PM Primary Physician: Physician, No PCP We would like to thank you for choosing [facility] for your emergency medical needs. We [...] health of those around you. Call the [place] [employer] at 3-146-KETN-USA or the [place] [employer] at 2-795-DMO2349 for more information. High blood pressure: Your [...] deadly infections. Discuss this with your child's emt b, or Public Health Department. Your family practice doctor can determine if you need pneumonia or flu vaccine. [facility] Department can be reached at . Substance Abuse Program: Concerns with addiction to alcohol, benzodiazepines (Ativan or Xanax) and Opiates (Heroin, Percocet, OxyContin, Methadone or Fentanyl)? [facility] offers an inpatient Substance Abuse Program to help treat the symptoms associated with medical detoxification of addictive substances. The new program offers care for non- adults (18 and older) looking to break the chain to addictive chemicals. The Substance Abuse Program is a voluntary inpatient admission and it starts with a pre-screening phone call to a pediatric social worker. During the call, goals and objectives for recovery and how the patient will transition to outpatient care will be established. Please call [phone] to get help today. Domestic Violence: If [...] suicide hotline, anytime day or night, at 2-250-075-QECD. Community Conduit Mechanic: You may be contacted by your local fire department for a follow up visit from a community allocation analyst. The community allocation analyst can help with a home safety check; follow up care, and general home care management. Pharmacy Information: Below is a list of 24 hour pharmacies that we are aware of. We suggest that you call the specific pharmacy for their hours before traveling to a location. Hours may vary on holidays. [facility] Pharm[facility] [phone] [address] [address] [place], [place] [phone] [place], [place] [address] [phone] [address], [place] [phone], [place] [phone] [address] [place], [place] [phone] [address] [place] [phone] Take all medications as directed. If you need prescription assistance, contact the following agencies: ?? Partnership for Prescription Assistance at or www.Netops Technologyx.org ?? [facility] at or www.Healogicarx.org ?? www.MozillaRSpectra Analysis Instruments is a site with many valuable coupons Patient Education Materials HO SIMMS has been given the following patient education materials: ~~ Did you know that there is a Health Center near you that can serve children and adults regardless of your income or ability to pay? Call today for an appointment at [facility] (site #1) [address] [place] [address] ([address] [facility]) beside the [facility] for [facility] [facility] [address] [place] [address] on the [email or web address] We provide health care for the ENTIRE FAMILY, including care, shots, well-child checkups, case management and nutrition counseling. Accepting new patients with or without health insurance We welcome all patients with Medicare, Medicaid, Caresource, Hazel, and commercial insurance. Sliding fee for those without insurance To schedule an appointment, call ~~ For patients referred to a [facility] for possible follow-up care Before you call for an appointment, please read this notice completely. [place] wants to make sure that your follow-up care will not be delayed. Please let the emergency room staff know if you DO NOT meet ALL of the requirements listed below. They will then refer you elsewhere for timely care. Patients who are eligible for [facility] see patients: ?? Who do not have a primary care doctor or clinic where they receive care ?? Who have insurance card that lists [place] as the provider Patients who are not eligible for [facility] provide high-quality health care for a variety of illnesses and injuries. However, [facility] are not able to serve all patients. [facility] cannot see patients: ?? Who are under [...] types of care are available at all [facility] locations. Here is a list of [facility] locations and phone numbers, along with a brief description of the services they offer. [facility] - For General Medical Concerns Bahai for All People [address] [phone] [facility] [address] [place], [place] [phone] [facility] Primary [facility] Specialty Care [address] [place], [place] [phone] Friday - Friday 8am - 4pm [facility] 6699 [place], [place] [phone] [facility] DREDGE LEVER OPERATOR Clinic [address] [place], [place] [id number] [facility] [address] [facility] [address] [place], [place] [id number] General medical [place] Outreach Mobile Aircraft Engine Mechanic Supervisor Clinics - For all Clinics call [phone] [facility] [address] [place], [place] [address] [facility]/ [facility]* [address] [place], [place] [address] [facility]* 57 [place], [place] [address] [facility] 38 [place], [place] [address] [facility] 14 [place], [place] [address] [facility] 1675 [place], [place] [address] [facility] [address] [place], [place] [address] [facility] [address] [place], [place] [address] [facility]* [address] [place], [place] [address] [facility] [address] [place] [address] and Friday monthly 1-3pm *Denotes clinics where mental health services are provided on site. Clinic hours vary; unless otherwise noted, [facility] see patients by appointment only. Some clinics do not accept Medicare patients. In addition to the above, there are other similar clinics throughout [facility]. Several such clinics are listed on the back of this notice, for your convenience. Non-[facility] Clinics in [facility] supplies this information for reference only, and is not responsible for changes in locations, hours, or services. This information was accurate at the time of printing. [place] recommends checking all information listed here before choosing a clinic for your care. Call for hours, most clinics are by appointment only Primary [place] [phone] Primary [facility] 1[address] [place], [place] [address] [facility] [address], [place] [address] [facility] [place] 2300 [place], [place] [address] [facility] [place] 600 [facility] [address]rd Floor [place], [place] [address] [facility] [place] 299 [place], [place] [address] [facility] 3433 [facility] [address] [place] [address] [facility] Luis Angel Davies [address] [place], [place] [address] [facility] [address] [place] [address] [place], [place] [address] [facility] 3781 [place], [place] [address] [facility] Dental [facility] [address] [phone] [facility] N118 [facility] [address] [phone] Optometry Clinic [address] [address] [facility] 3595 [place], [place] [address] [place] Insure/Medicaid Clinics Dr. John Conti [address] [address] For people employed or have some income With no insurance or those with Medicaid Only see patients on mornings. To schedule an appointment call: [phone] [facility] [address] [facility] [address] [place], [place] [address] [place] [facility] Clinics 2[address] [place], [place] [address] [facility] Family Medicine [phone] [facility] Free [facility] [phone] [facility] Free [facility] [phone] [facility] [phone] Free Clinic 47[address] [facility] [address] [place], [place] [address] [facility] Primary Care Clinics [place] [address] [place], [place] [address] [facility] 1275 [place], [place] [address] [place] 1125 [place], [place] [address] [place] 1390 [facility] [address] [place], [place] [address] [facility] 4560 [place], [place] [address] [facility] 1777 [place], [place] [address] [place] 441 [place], [place] [address] [place] [address] [place], [place] [address] [facility] 1405 [place], [place] [address] [place] 4434 [place], [place] [address] [place] 2857 [place], [place] [address] [facility] Close to Home [facility] 7901 [facility] [address] [place], [place] [address] [facility] 6435 [place], [place] [address] 6499 [facility] [address] [place], [place] [address] [place] [address] [facility] [address] [place], [place] [address] [address] [address] [place], [place] [address] 500 [facility] 3rd floor [place], [place] [address] [place] [address] [place], [place] [address] [place] 75 [place], [place] [address] [address] 275 [place], [place] [address] [place] [address] [place], [place] [address] [place] [address] [place], [place] [address] [place], [place] [address] [place], [place] [address] Non Hospital [facility] Clinics [facility] [address] [place], [place] [address] ext 1840 [facility] [place] 1421 [place], [place] [address] [address] Immunizations, Tests, Health Screenings Call for times of clinics [facility] 39 [place], [place] [address] Patients of all ages accepted- treatment of common ailments including: common cold, ear infections, abrasions, and sprains. [phone] Every Friday 6:30pm-8:30pm [facility] 240 [place], [place] [address] [facility] Various locations throughout [place] [phone] [facility] , [place] and Mondays at 6pm [phone] Routine medical care at no charge including sports and school physicals, health screenings. Walk in [facility] [phone] or [phone] (toll free) Return for increasing pain, coughing [...] for the first 2 days. ???Only take wgdk-tao-utzkvin or prescription medicines for pain, discomfort, or [...] 11/03/2006 Document Revised: 01/25/2013 Document Reviewed: 01/29/2016 [employer] Interactive Patient Education ?2016 [employer] <><><><><><><><><>< ><><><><><><><><><> <><><><><><><><><>< ><><><><> Patient Visit Summary Signature YANNI HO Deann has been given the following list of patient education materials, prescriptions and follow-up instructions: YANNI Guaman SHYLEIGH M, have received the above patient education materials/instructi ons and have verbalized understanding: _ Date _ Time Patient Signature _ Date _ Time Provider Signature Normal [facility] XR Chest 1 Viewon 03-02-2019 XR Chest [...] or dislocation. IMPRESSION: Nonacute studies detailed above [place] thanks you for the opportunity to care for your patient. Workstation ID: [id number] - [id number] FINAL REPORT Dictated By: Caleb Enriquez MD 03/02/2019 02:23 Assigned Physician: Caleb Enriquez MD Reviewed and Electronically Signed By: Caleb Enriquez MD 03/02/2019 02:25 Transcribed by: KAREEM 03/02/2019 02:23 Technologist: Normal [facility] Comment on above: Order Comment: Later al [...] or dislocation. IMPRESSION: Nonacute studies detailed above [place] thanks you for the opportunity to care for your patient. Workstation ID: [id number] - [id number] FINAL REPORT Dictated By: Caleb Enriquez MD 03/02/2019 02:23 Assigned Physician: Caleb Enriquez MD Reviewed and Electronically Signed By: Caleb Enriquez MD 03/02/2019 02:25 Transcribed by: [facility] 03/02/2019 02:23 Technologist: BP Alvarado [facility] XR Clavicle Complete LTon XR Clavicle - [...] or dislocation. IMPRESSION: Nonacute studies detailed above [place] thanks you for the opportunity to care for your patient. Workstation ID: [id number] - [id number] FINAL REPORT Dictated By: Caleb Enirquez MD 03/02/2019 02:23 Assigned Physician: Caleb Enriquez MD Reviewed and Electronically Signed By: Caleb Enriquez MD 03/02/2019 02:25 Transcribed by: [facility] 03/02/2019 02:23 Technologist: BP Alvarado [facility] ED Pat Eduon 06-08-2018 ED Pat [facility] 793 [place], [place] [address] Emergency Department Discharge Instructions HO SIMMS , [...] los Servicios de Emergencia Name HO SIMMS [facility]# [id number] PLEASE READ THE FOLLOWING REGARDING YOUR MEDICATIONS [...] doses are changed, or new medications (including zbzd-ckw-mpfzfkn products) are added. If you have any [...] UNTIL YOU TALK TO YOUR DOCTOR None [place] [id number] Emergency Department Discharge Instructions Name: JAG SIMMSELIDA Zacarias Current Date: 06/08/2018 17:33:10 : 1995 12:00 PM Primary Physician: Physician, PCP Unknown We would like to thank you for choosing [facility] for your emergency medical needs. We [...] emergency department. For language assistance please call [phone]. Instructions for obtaining X-rays: When following up [...] health of those around you. Call the [place] [employer] at 3-534-HUDU-USA or the [place] [employer] at 7-320-EOV-0677 for more information. High blood pressure: Your [...] deadly infections. Discuss this with your child's emt b, or Public Health Department. Your family practice doctor can determine if you need pneumonia or flu vaccine. [facility] Department can be reached at . Domestic [...] suicide hotline, anytime day or night, at 9-957-133-GKDO. Community Conduit Mechanic: You may be contacted by your local fire department for a follow up visit from a community allocation analyst. The community allocation analyst can help with a home safety check; follow up care, and general home care management. Pharmacy Information: Below is a list of 24 hour pharmacies that we are aware of. We suggest that you call the specific pharmacy for their hours before traveling to a location. Hours may vary on holidays. [facility] [address] [place], [place] [address] [phone] [place], [place] [address] [phone] [address] [place], [place] [phone] [address] [place], [place] [phone] [address] [place], [place] [phone] [address] [place], [place] [phone] 1100 [place], [place] [phone] Take all medications as directed. If you need prescription assistance, contact the following agencies: ?? Partnership for Prescription Assistance at or www.pparx.org ?? [place] at or www.[employer] Water[employer]x.org ?? [place] [employer] [employer] is a site with many valuable coupons Patient Education Materials HO SIMMS has been given the following patient education materials: Please call the following number(s) and schedule an appointment with the Lice clinics. [facility] Lice Clinics [place], [place] Home Health Care Lice, Adult Lice [...] care provider will recommend a prescription or atop-fsp-tsmpocy rinse. ???Removing lice, eggs, and egg cases [...] 11/03/2006 Document Revised: 11/24/2015 Document Reviewed: 03/21/2015 [employer] Interactive Patient Education ?2016 [employer] <><><><><><><><><>< ><><><><><><><><><> <><><><><><><><><>< ><><><><> Patient Visit Summary Signature HO SIMMS has been given the following list of patient education materials, prescriptions and follow-up instructions: YANNI Guaman SHYLEIGH M, have received the above patient education materials/instructi ons and have verbalized understanding: _ Date _ Time Patient Signature _ Date _ Time Provider Signature Normal [facility] Vital Signs Date Time Vital Sign Value Performing Clinician Facility 01-03-2024 21:40-0500 Body temperature 96.7 [degF] [facility] 01-03-2024 21:40-0500 Diastolic blood pressure 98 mm[Hg] [facility] 01-03-2024 21:40-0500 Heart rate 78 /min [facility] 01-03-2024 21:40-0500 Respiratory rate 16 /min [facility] 01-03-2024 21:40-0500 SaO2% (BldA) [Mass fraction] 99 % [facility] 01-03-2024 21:40-0500 Systolic blood pressure 138 mm[Hg] [facility] 01-03-2024 21:14-0500 Body height 177.8 cm [facility] 01-03-2024 21:14-0500 Body mass index (BMI) [Ratio] 25.8 kg/m2 [facility] 01-03-2024 21:14-0500 Body weight 81.64 kg [facility] 09-22-2022 22:15-0500 Diastolic blood pressure 86 mm[Hg] Garrett Becerra MD Work Phone: [facility] 09-22-2022 22:15-0500 Heart rate 85 /min Garrett Becerra MD Work Phone: [facility] 09-22-2022 22:15-0500 SaO2% (BldA) [Mass fraction] 100 % Garrett Becerra MD Work Phone: [facility] 09-22-2022 22:15-0500 Systolic blood pressure 127 mm[Hg] Garrett Becerra MD Work Phone: [facility] 09-22-2022 20:32-0500 Respiratory rate 17 /min Garrett Becerra MD Work Phone: [facility] 09-22-2022 19:11-0500 Body height 175.3 cm Garrett Becerra MD Work Phone: [facility] 09-22-2022 19:11-0500 Body mass index (BMI) [Ratio] 20.67 kg/m2 Garrett Becerra MD Work Phone: [facility] 09-22-2022 19:11-0500 Body weight 63.5 kg Garrett Becerra MD Work Phone: [facility] 09-22-2022 17:24-0500 Body temperature 98.6 [degF] Garrett Becerra MD Work Phone: [facility] 01-18-2021 20:05-0500 BMI (Body Mass Index) 19.37 kg/m2 [facility] 01-18-2021 20:05-0500 Body Temperature 98.2 [degF] [facility] 01-18-2021 20:05-0500 Body weight 61.24 kg [facility] 01-18-2021 20:05-0500 BP Diastolic 91 mm[Hg] [facility] 01-18-2021 20:05-0500 BP Systolic 138 mm[Hg] [facility] 01-18-2021 20:05-0500 Height 177.8 cm [facility] 01-18-2021 20:05-0500 Pulse (Heart Rate) 100 /min [facility] 01-18-2021 20:05-0500 Pulse Oximetry 99 % [facility] 01-18-2021 20:05-0500 Respiratory Rate 18 /min Emilianopablo Esquivel [facility] Encounters Encounter Date Encounter Type Care Provider Facility Start: 01-03-2024 End: 01-03-2024 [facility] department [facility] Start: 01-03-2024 End: 01-03-2024 Emergency department patient visit [facility] Work Phone: Start: 01-11-2023 End: 01-12-2023 Emergency department patient visit NO PCP PHYSICIAN [facility] Start: 09-22-2022 End: 09-23-2022 Emergency department patient visit GARRETT BECERRA [facility] Start: 09-22-2022 End: 09-22-2022 Emergency department patient visit Garrett Becerra MD Work Phone: [facility] Comment on above: Polysubstance abuse (CMS/HCC) (Primary Dx); Acute right-sided low back pain without sciatica; Lower abdominal pain; Bacterial vaginosis; Otalgia of both ears; Hypomagnesemia Start: 09-22-2022 End: 09-22-2022 Evaluation and management of inpatient Garrett Becerra MD Work Phone: [facility] Start: 01-18-2021 End: 01-18-2021 Emergency department patient visit PHYSICIAN BREANNA [facility] Start: 01-18-2021 End: 01-18-2021 Emergency department patient visit Emiliano Esquivel Work Phone: [facility] Comment on above: Abscess (Primary Dx) ; Encounter for incision and drainage procedure Procedures Date Procedure Procedure Detail Performing Clinician Start: 09-22-2022 Culture bacterial quanttative colony count urine Arben HUGHES Work Phone: Start: 09-22-2022 Drug tst prsmv instr mnt chem analyzers pr date Garertt Becerra MD Work Phone: Start: 09-22-2022 Ct [...] Td Vaccines (2 - Td or Tdap) [facility] Start: [facility]-03-2024 [facility] Start: 09-22-2022 Adolescent depressio n screening assessment Depression Screening [facility] Start: 09-22-2022 Hepatitis C screening Hepatitis C Sc reening [facility] Start: 09-22-2022 HIV screening HIV Screening [facility] Start: 09-22-2022 Social Influencers o f Health Screening Social Influencers of Health Screening [facility] Start: 07-18-2022 Influenza vaccination Influenza Vacc ine (#1) [facility] Start: 01-22-2021 End: 01-22-2021 Office Visit 01/22/2021 Office Visit Primary Care Keturah Whitley MD [facility] [address] [place] [address] [phone] [facility] Start: 07-18-2020 Influenza vaccinatio n given Sequential Influenza Vaccine (#1) [facility] Start: 01-15-2017 Screening for malign ant neoplasm of cervix Cervical Cancer Screening: Pap Smear [facility] Start: 01-15-2014 Hepatitis C antibody , confirmatory test Hepatitis C Screening [facility] Start: 2012 COVID-19 Vaccine (1 of 2) COVI D-19 Vaccine (1 of 2) [facility] Start: 01-15-2011 HIV screening HIV Screening [facility] Start: 2008 Adolescent depressio n screening assessment Depression Screening (PHQ9) [facility] Start: 01-15-2007 HPV Vaccines (1 - 2- dose series) HPV Vaccines (1 - 2-dose series) [facility] Start: 01-15-2007 Vaccination for shira n papillomavirus HPV Vaccines (1 - 2-dose series) [facility] Start: 01-15-1999 History and physical examination, annual for health maintenance Wellness Visit [facility] Start: 1996 COVID-19 Vaccine (#1) COVID-19 Vacci ne (#1) [facility] Start: 1996 Hepatitis B Vaccines (1 of 3 - 3-dose series) Hepatitis B Vaccines (1 of 3 - 3-dose series) [facility] Start: 1996 Screening for malign ant neoplasm of cervix Pap Smear [facility] Start: 1996 Tetanus vaccination Tetanus: Every 1 0yrs [facility] Bacteria identified in Urine by Culture Culture urine Microbiology STAT 09/22/2022 8:32 PM EST [facility] End: 09-22-2022 Neisseria gonorrhoeae DNA [Presence] in Urine by MOE with probe detection [facility] Work Phone: Comment on above: STAT for 1 Occurrenc es starting 09/22/2022 until 09/22/2022 Patient Education ED Animal Bite (General) [facility] Work Phone: Immunizations Immunization Date Immunization Notes Care Provider Fa [facility] 08-05-2013 influenza virus vacc ine, unspecified formulation Garrett Becerra MD Work Phone: [facility] Payers Date Payer Category Payer Medicaid [id number] 2024 Self-pay 2016 Unknown [id number] 1995 Unknown [id number] Unknown [id number] Social History Date Type Detail Facility Start: 01-18-2021 End: 09-22-2022 Tobacco smoking status NHIS Never smoker [facility] Start: 01-18-2021 Tobacco use and exposure Current user [facility] History of tobacco use Chews Tobacco 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) [facility] Start: 1995 Sex Assigned At Not on file O hiALeal Start: 09-12-2022 End: 09-22-2022 Exposure to SARS-CoV-2 (event) Not sure [facility] Start: 09-22-2022 Tobacco use and exposure Smokeless tobacco non-user [facility] Start: 09-22-2022 Alcohol intake Lifetime non-d johnna (finding) [facility] Start: 01-03-2024 Tobacco smoking stat us NHIS Unknown if ever smoked [facility] Start: 1995 Sex Assigned At Female W [facility] Discharge summary 01-03-2024 Note Date & Type Note Facility 01-03-2024 Discharge summary Note Date/Time January 03, 2024 9:28pm [facility] Medical Records Department [address] [place] [address] Emergency Department Summary 01/03/24 MR#: [id number] Acct: [id number] Name: HO SIMMS Rep #:[id number] : [...] dog is up-to-date with vaccines including rabies. [facility] <SAUL Chavez - Last Filed: 01/03/24 21:33> [facility] Medical History (Updated 01/03/24 @ 21:31 [...] <SAUL Chavez - Last Filed: 01/03/24 21:33> [facility] Narrative Medical decision making narrative: Patient presenting [...] Haddad MD - Last Filed: 01/03/24 21:38> [facility] Narrative Medical decision making narrative: Patient presenting [...] problems, contact your Primary Care Provider. Call [facility] ([phone]) or report to the closest Emergency Room. Call 911 if necessary. 01/03/242137 <Electronically signed by Son Haddad MD> Cosigner Signature (if applicable): 01/03/242132 <Electronically signed by Nahomy HUGHES> CC: ~ Signed [facility] Work Phone: History of Present illness Narrative 09-22-2022 Garrett Becerra MD - 09/22/2022 5:20 PM EST Note Date & Type Note Facility 09-22-2022 History of Presen t illness Narrative [facility] Emergency Department Note History of Present Illness [...] Urine Yellow Clarity, Urine Hazy (*) Specific [place] Urine 1.015 pH, Urine 6.0 Leukocytes, Urine [...] Procedure Abnormality Status --------- ------ CBC auto differential[[id number]] Abnormal Final result Please view results for [...] MD Impression Final diagnoses: [F19.10] Polysubstance abuse (CMS/[facility]) [M54.50] Acute right-sided low back pain without sciatica [R10.30] Lower abdominal pain [N76.0, B96.89] Bacterial vaginosis [H92.03] Otalgia of both ears [E83.42] Hypomagnesemia Garrett Becerra MD 09/22/22 [id number] Garrett Becerra MD 09/22/22 [id number] documented in this encounter [facility] Evaluation note Note Date & Type Note Facility Evaluation note Diagnosis Polysubstance abuse ([facility])- Primary Other, mixed, or unspecified nondependent drug abuse, unspecified Acute right-sided low back pain without sciatica Lower abdominal pain Abdominal pain, other specified site Bacterial vaginosis Unspecified vaginitis and vulvovaginitis Otalgia of both ears Hypomagnesemia Disorders of magnesium metabolism documented in this encounter [facility] Evaluation note Note Date & Type Note Facility Evaluation note No assessment information availa ble [facility] Work Phone: Hospital Discharge instructions Attachments Note Date & Type Note Facility Hospital Discharge instructions The following attachments cannot be sent through Care Everywhere.Substance Use Disorder (Grenadian)Bacterial Vaginosis (Grenadian)documented in this encounter [facility] Discharge instructions Note Date & Type Note Facility Hospital Discharge instructions Additional Instructions Take antibiotics as directed, return for any worsening of your symptoms. 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 Advance Directives and Livin g Will 01/18/2021 8:38 PM Advance Directive Response Recorded Date/ Time Living Will No January 03 9:39pm Power of Director Hedis No January 03, 2024 9:39pm Hospital Course Note EMERGENCY DEPARTMENT DISCHAR GE SUMMARY PATIENT NAME:HO SIMMS MRN: [id number] AGE: 23 Years SEX: Female PHONE:[phone] DOS: 06/08/2018 4:31 PM : 1995 ATTENDING [...] NAME:HO SIMMS AGE: 24 Years SEX: Female PHONE:[phone] DOS: 05/07/2019 12:15 PM : 1995 ATTENDING [...] 11:00 am with Keturah Whitley MD [facility] [address] [id number] Please arrived 15 minute early, If your unable to make the appointment, please call and reschedule. * Additional Instructions* Emiliano Esquivel MD - 01/18/2021 We made a new patient appointment for you on FridayJanuary 22 at 11:00 am [facility] [id number] Please arrived 15 minute early, If your unable to make the appointment, please call and reschedule. Please follow up with your family doctor or one of your choosing. You may find a provider through the [facility] Physician Referral Service by calling [phone]) or by visiting [email or web address] Thank you for allowing us the opportunity [...] sent through Care Everywhere. * Abscess: Skin (Grenadian) documented in this encounter Assessments Diagnosis Abscess- Primary Cellulitis and abscess of unspecified site Encounter for incision and drainage procedure Chief Complaint and Reason for Visit Chief Complaint DOG BITE Additional Source Comments INFORMATION SOURCE (unrecogn ized section and content) DATE CREATED AUTHOR 05/22/2019 [facility] DATE CREATED AUTHOR AUTHOR'S ORGANIZ ATION 01/25/2021 [facility] DATE CREATED AUTHOR AUTHOR'S ORGANIZ ATION 01/12/2023 [facility] DATE CREATED AUTHOR AUTHOR'S ORGANIZ ATION 01/07/2024 [facility] Reason for Visit (unrecogniz ed section [...] Care Teams (unrecognized sec tion and content) Analog Design Engineer Relationship Specialty Start Date End Date Physician, [...] BE BASED ON THE PRIMARY CLINICAL RECORDS. [employer] provides no warranty or guarantee of the accuracy or completeness of information in this document.
[2025-08-21 00:01] VITALS: BMI 31.5
[2025-08-21 00:06] VITALS: BP 127/77; PULSE 74; RESP 16; TEMP 36.4; O2SAT 97
[2025-08-21 00:07] VITALS: PULSE 73; O2SAT 97
[2025-08-21 00:44] LABS: ROM Internal Control Test YES-OK TO RESULT pt. (Internal QC)
[2025-08-21 00:45] LABS: ROM Patient Test POSITIVE (Negative); Record Kit Lot#, ROM+ K3358
--- NOTE | 2025-08-21 05:09 | OB.TRI.HP_ITS ---
HPI - General HPI Narrative ROD LIAO, is a 30 F G1, P0 who presents at 40 weeks gestation with gush of fluid. She follows with a practice in [place] but decided she wanted to deliver closer to family. She indicates that she has had routine care without complication. This evening she had a gush of fluid and presented. She was maxime about every 20 to 30 minutes. [facility] Medical History (Updated 08/21/25 @ 05:[address] Luis Angel Cohen MD) Dog bite Home Medications ?Medication ?Instructions ?Recorded ?Last Taken ?Type vit no.95-ferrous 1 tab PO DAILY 08/21/2503/11 10:00 History fumarate 28 mg-folic acid 800 mcg tablet () Allergy/AdvReac Type Severity Reaction Status Date / Time No Known Allergies Allergy Verified 08/21/25 00:00 Social History Smoking Status: Never smoker NST FHR Rate Baby A NST Reactive:: Yes Assessment & Plan (1) Rupture of membranes with clear amniotic fluid: PLAN: 40+ week intrauterine with spontaneous rupture membranes. Cervix is about 1 cm dilated. Patient wanted to go home for several hours. We recommended against this and she decided to sign out AGAINST MEDICAL ADVICE. Plans to return in several hours for management of labor and delivery. Will likely start Pitocin to augment labor if she is not having adequate contractions at that time.
--- NOTE | 2025-08-21 05:09 | OB.TRI.HP_ITS ---
HPI - General HPI Narrative ROD LIAO, is a 30 F G1, P0 who presents at 40 weeks gestation with gush of fluid. She follows with a practice in [place] but decided she wanted to deliver closer to family. She indicates that she has had routine care without complication. This evening she had a gush of fluid and presented. She was maxime about every 20 to 30 minutes. [facility] Medical History (Updated 08/21/25 @ 05:[address] Luis Angel Cohen MD) Dog bite Home Medications ?Medication ?Instructions ?Recorded ?Last Taken ?Type vit no.95-ferrous 1 tab PO DAILY 08/21/2503/11 10:00 History fumarate 28 mg-folic acid 800 mcg tablet () Allergy/AdvReac Type Severity Reaction Status Date / Time No Known Allergies Allergy Verified 08/21/25 00:00 Social History Smoking Status: Never smoker NST FHR Rate Baby A NST Reactive:: Yes Assessment & Plan (1) Rupture of membranes with clear amniotic fluid: PLAN: 40+ week intrauterine with spontaneous rupture membranes. Cervix is about 1 cm dilated. Patient wanted to go home for several hours. We recommended against this and she decided to sign out AGAINST MEDICAL ADVICE. Plans to return in several hours for management of labor and delivery. Will likely start Pitocin to augment labor if she is not having adequate contractions at that time.
== END 2025-08-21 01:25 | disposition left against medical advice (07) ==
LOC: WPOUT 23:49 → WP 23:50
PROVIDERS: Visit Provider Obstetrics & Gynecology
DX: O42.92 Full-term premature rupture of membranes, unspecified as to length of time between rupture and onset of labor (principal); Z3A.40 40 weeks gestation of pregnancy; Z53.29 Procedure and treatment not carried out because of patient's decision for other reasons
CPT/HCPCS: 59025; 59050; 84112; 99221; G0378

== ENCOUNTER 2025-08-21 08:31 | Inpatient (IN) | payer BC, SELFPAY ==
[2025-08-21] VITALS (36 sets, daily range): BP systolic 103–186; BP diastolic 55–112; PULSE 58–91; RESP 16–18; TEMP 36.2–36.6; O2SAT 80–100; BMI 32.7
--- OUTSIDE RECORDS SUMMARY | 2025-08-21 08:33 | XMS RPT_ITS | CCD ---
Author Organization [facility] GEOSPATIAL SPECIALIST [facility] Care Team Providers Care Branch Service Leader Name Role Phone NO, PHYSICIAN Primary Care [...] Department Summary on 01-03-2024 Emergency Department Summary [facility] Medical Records Department [address] [place] [address] Emergency Department Summary 01/03/24 MR#: [id number] Acct: [id number] Name: HO SIMMS Rep #: [id number] : 1995 28 From: Son Haddad MD [...] dog is up-to-date with vaccines including rabies. [facility] Medical History (Updated 01/03/24 @ 21:31 by [...] and ulnar (more content not included)... Normal [facility] Bacterial sialidase Ql (Unsp spec)on 09-22-2022 T. vaginalis Ag IA Ql (Genital specimen) Negative Normal Negative [facility] Comment on above: Order Comment: Self swab Performed By: #### 4 1477-1 #### [facility] [address] [place] [address] Bacterial sialidase Ql (Unsp spec)Ordered By: Morgan Patel on 09-22-2022 Interpretation and review of laboratory results Abnormal [facility] Basic metabolic 2000 panelon 09-22-2022 Anion gap [Moles/Vol] 7 mmol/L 6 - 18 [employer] [facility] [employer] Calcium [Mass/Vol] 8.9 mg/dL 8.9 - 10. 3 mg/dL [facility] Chloride [Moles/Vol] 98 mmol/L 98 - 10 7 mmol/L [facility] [facility] CO2 [Moles/Vol] 26 mmol/L 22 - 32 mmol/L [facility] [facility] Creatinine [Mass/Vol] 0.79 mg/dL 0.60 - 1.30 mg/dL [facility] [facility] GFR/1.73 sq M.predicted MDRD (S/P/Bld) [Vol rate/Area] 106 mL/min/{1.73_m2} - PINF [facility] Comment on above: Effective August 25, 2022, calculation based on the Chronic Kidney Disease Epidemiology Collaboration (CKD-EPI) equation refit without adjustment for race. Glucose [Mass/Vol] 137 mg/dL High 70 - 99 mg/dL [facility] Potassium [Moles/Vol] 3.8 mmol/L 3.6 - 5.1 mmol/L [employer] [facility] Sodium [Moles/Vol] 131 mmol/L Low 136 - 145 mmol/L [employer] [facility] Urea nitrogen [Mass/Vol] 10 mg/dL 8 - 20 mg/dL [facility] Urea nitrogen/Creatinine [Mass ratio] 12.7 mg/mg 12.0 - 20.0 [facility] Beta HCG ( test) Ql on 09-22-2022 HCG ( test) Ql Negative Negative [facility] Interpretation and review of laboratory results Normal [facility] CT ABDOMEN PELVIS WO CONTRAS Ton 09-22-2022 [...] Self Edit Transcribed Date: 09/22/2022 19:07 Normal [facility] CT Pelvis limited WO contras ton 09-22-2022 [...] By: Self Edit Transcribed Date: 09/22/2022 19:07 [facility] Radiology Study observation (narrative) [facility] CT Pelvis limited WO contras tOrdered By: Caleb Enriquez on 09-22-2022 [employer] [facility] Work Phone: Drugs identified Screen Nom (U)on 09-22-2022 Amphetamine Screen, Ur Detected Abnormal Not Detected [facility] Comment on above: Order Comment: [...] request. Performed By: #### 1 2286-1 #### [facility] [address] [place] [address] Barbiturate Screen, Ur Not detected Normal Not Detected [facility] Comment on above: Order Comment: [...] request. Performed By: #### 1 2286-1 #### [facility] [address] [place] [address] Benzodiazepine Screen, Ur Not detected Normal Not Detected [facility] Comment on above: Order Comment: [...] request. Performed By: #### 1 2286-1 #### [facility] [address] [place] [address] Cannabinoid (THC) Screen, Ur Detected Abnormal Not Detected [facility] Comment on above: Order Comment: [...] request. Performed By: #### 1 2286-1 #### [facility] [address] [place] [address] Cocaine Screen, Ur Detected Abnormal Not Detected [facility] Comment on above: Order Comment: [...] request. Performed By: #### 1 2286-1 #### [facility] [address] [place] [address] Methadone Screen, Urine Not detected Normal Not Detected [facility] Comment on above: Order Comment: [...] request. Performed By: #### 1 2286-1 #### [facility] [address] [place] [address] Opiate Screen, Ur Not detected Normal Not Detected [facility] Comment on above: Order Comment: [...] request. Performed By: #### 1 2286-1 #### [facility] [address] [place] [address] Oxycodone Screen, Ur Not detected Normal Not Detected [facility] Comment on above: Order Comment: [...] request. Performed By: #### 1 2286-1 #### [facility] [address] [place] [address] Amphetamines Ql (U) Detected Abnormal Not Detected [...] Interpretation and review of laboratory results Abnormal [employer] Methadone Screen Ql (U) Not detected Not [...] determinations. Confirmatory testing is available on request. [facility] Ethanol (Bld) [Moles/Vol]on 09-22-2022 Ethanol [Mass/Vol] mg/dL NINF - 10 mg/dL [facility] [facility] Interpretation and review of laboratory results Normal [facility] Hemogram and platelets WO di fferential panel (Bld)on 09-22-2022 Basophils (Bld) [#/Vol] 0.04 10*3/uL Normal 0.00-0.20 [facility] Comment on above: Performed By: #### 2 4317-0 #### [facility] [address] [place] [address] Basophils/100 WBC (Bld) 0.6 % Normal 0.0-2.0 [facility] Comment on above: Performed By: #### 2 4317-0 #### [facility] [address] [place] [address] Eosinophils (Bld) [#/Vol] 0.03 10*3/uL Normal 0.00-0.70 [facility] Comment on above: Performed By: #### 2 4317-0 #### [facility] [address] [place] [address] Eosinophils/100 WBC (Bld) 0.4 % Normal 0.0-7.0 [facility] Comment on above: Performed By: #### 2 4317-0 #### [facility] [address] [place] [address] Erythrocyte distribution width (RBC) [Ratio] 11.9 % Normal 11.0-14.8 [facility] Comment on above: Performed By: #### 2 4317-0 #### [facility] [address] [place] [address] Hematocrit (Bld) [Volume fraction] 41.6 % Normal 34.3-47.9 [facility] Comment on above: Performed By: #### 2 4317-0 #### [facility] [address] [place] [address] Hemoglobin (Bld) [Mass/Vol] 14.3 g/dL Normal 12.0-16.0 [facility] Comment on above: Performed By: #### 2 4317-0 #### [facility] [address] [place] [address] Immature granulocytes (Bld) [#/Vol] 0.02 10*3/uL Normal [facility] Comment on above: Performed By: #### 2 4317-0 #### [facility] [address] [place] [address] Immature granulocytes/100 WBC (Bld) 0.3 % Normal 0.0-1.2 [facility] Comment on above: Performed By: #### 2 4317-0 #### [facility] [address] [place] [address] Lymphocytes (Bld) [#/Vol] 0.31 10*3/uL Low 1.00-4.80 [facility] Comment on above: Performed By: #### 2 4317-0 #### [facility] [address] [place] [address] Lymphocytes/100 WBC (Bld) 4.6 % Low 17.9-49.6 [facility] Comment on above: Performed By: #### 2 4317-0 #### [facility] [address] [place] [address] MCH 29.4 pcg Normal 27.0-34.0 [facility] Comment on above: Performed By: #### 2 4317-0 #### [facility] [address] [place] [address] MCHC (RBC) [Mass/Vol] 34.4 g/dL Normal 30.8-35.3 [facility] Comment on above: Performed By: #### 2 4317-0 #### [facility] [address] [place] [address] MCV (RBC) [Entitic vol] 85.4 fL Normal 80.0-97.0 [facility] Comment on above: Performed By: #### 2 4317-0 #### [facility] [address] [place] [address] Monocytes (Bld) [#/Vol] 0.81 10*3/uL Normal 0.00-0.90 [facility] Comment on above: Performed By: #### 2 4317-0 #### [facility] [address] [place] [address] Monocytes/100 WBC (Bld) 12.0 % Normal 0.0-12.0 [facility] Comment on above: Performed By: #### 2 4317-0 #### [facility] [address] [place] [address] Neutrophils Absolute 5.53 K/mcL Normal 1.80-7.70 [facility] Comment on above: Performed By: #### 2 4317-0 #### [facility] [address] [place] [address] Neutrophils/100 WBC (Bld) 82.1 % High 38.1-75.5 [facility] Comment on above: Performed By: #### 2 4317-0 #### [facility] [address] [place] [address] Platelet mean volume (Bld) [Entitic vol] 9.6 fL Normal 6.2-12.1 [facility] Comment on above: Performed By: #### 2 4317-0 #### [facility] [address] [place] [address] Platelets (Bld) [#/Vol] 199 10*3/uL Normal 142-424 [facility] Comment on above: Performed By: #### 2 4317-0 #### [facility] [address] [place] [address] RBC (Bld) [#/Vol] 4.87 10*6/uL Normal 3.74-5.34 [facility] Comment on above: Performed By: #### 2 4317-0 #### [facility] [address] [place] [address] WBC (Bld) [#/Vol] 6.7 10*3/uL Normal 4.6-10.2 [facility] Comment on above: Performed By: #### 2 4317-0 #### [facility] [address] [place] [address] Basophils (Bld) [#/Vol] 0.04 10*3/uL [facility] [...] mean volume (Bld) [Entitic vol] 9.6 fL [facility] th Platelets (Bld) [#/Vol] 199 10*3/uL [facility] RBC (Bld) [#/Vol] 4.87 10*6/uL [facility] WBC (Bld) [#/Vol] 6.7 10*3/uL [facility] Hepatic function 2000 panelo n 09-22-2022 Albumin [Mass/Vol] 4.4 g/dL 3.5 - 4.8 g/dL [facility] ALP [Catalytic activity/Vol] 48 U/L [facility] ALT [Catalytic activity/Vol] 16 U/L [facility] AST [Catalytic activity/Vol] 19 U/L [facility] Bilirubin [Mass/Vol] 0.4 mg/dL 0.3 - 1 .2 mg/dL [facility] Bilirubin.direct [Mass/Vol] 0.1 mg/dL NINF - 0.5 mg/dL [facility] Bilirubin.indirect [Mass/Vol] 0.3 mg/dL 0.0 - 1.0 mg/dL [facility] Protein [Mass/Vol] 6.8 g/dL 6.1 - 7.9 g/dL [facility] Lipaseon 09-22-2022 Lipase [Catalytic activity/Vol] 35 U/L [facility] Magnesiumon 09-22-2022 Magnesium [Mass/Vol] 1.5 mg/dL Low 1.8 - 2 .5 mg/dL [facility] Magnesium [Mass/Vol]on 09-22 Ethanol Level <10 Normal <[address] [facility] Comment on above: Performed By: #### 1 9123-9 #### [facility] [address] [place] [address] N gonorrhoea DNA Ur Ql MOE+p robeon 09-22-2022 N. gonorrhoeae DNA MOE+probe Ql (U) N. gonorrhoeae, RNA Probe Status = F Negative Chlamydia, RNA Probe Status = F Negative Normal Negative [facility] Comment on above: Order Comment: Self swab Performed By: #### 2 1416-3 #### [facility] [address] [place] [address] No Panel Informationon 09-22 Interpretation and review of laboratory results Normal [facility] Interpretation and review of laboratory results Abnormal [facility] Rapid bacterial vaginosis sc reenOrdered By: Morgan Patel on 09-22-2022 Bacterial sialidase Ql (Unsp spec) Positive Abnormal Negative [facility] T. vaginalis Ag IA Ql (Genit al specimen)on 09-22-2022 Interpretation and review of laboratory results Normal [facility] [facility] T. vaginalis Wet prep Ql (Genital specimen) Negative Negative [facility] Urinalysis dipstick W Reflex Culture panel (U)on 09-22-2022 Bacteria identified Cx Nom (U) 1 ORGANISM 202 Abnormal >543624 CFU/mL Escherichia coli The organism value for [...] Islt >=320 ug/ml Resistant Invalid Interpretation Code [facility] Comment on above: Performed By: #### 5 7019-2 #### [facility] [place] ([facility] [address] [place] [address] Bacteria, Urine Rare Abnormal None [facility] Comment on above: Performed By: #### 7019-2 #### [facility] [place] ([facility] [address] [place] [address] Bilirubin, Urine Negative Normal Negative [facility] Comment on above: Performed By: #### 5 7019-2 #### [facility] [place] [facility] [address] [place] [address] Blood, Urine 2+ Abnormal Negative [facility] Comment on above: Performed By: #### 7019-2 #### [facility] [address] [place] [address] Clarity (U) Hazy Abnormal Clear [facility] Comment on above: Performed By: #### 7019-2 #### [facility] [place] [facility] [address] [place] [address] Color (U) Yellow Normal Yellow [facility] Comment on above: Performed By: #### 7019-2 #### [facility] [place] [facility] [address] [place] [address] Glucose Ql (U) Normal Normal Normal [facility] Comment on above: Performed By: #### 7019-2 #### [facility] [place] [facility] [address] [place] [address] Ketones Ql (U) 5 mg/dL Abnormal Negative [facility] Comment on above: Performed By: #### 7019-2 #### [facility] [place] [facility] [address] [place] [address] Leukocytes, Urine 25 WBCs/mcL Abnormal Negative [facility] Comment on above: Performed By: #### 5 7019-2 #### [facility] [place] [facility] [address] [place] [address] Mucus, UA Rare Abnormal None [facility] Comment on above: Performed By: #### 5 7019-2 #### [facility] [place] [facility] [address] [place] [address] Nitrite, Urine Negative Normal Negative [facility] Comment on above: Performed By: #### 5 7019-2 #### [facility] [address] [place] [address] pH (U) 6.0 [pH] Normal 5.0-8.0 [facility] Comment on above: Performed By: #### 5 7019-2 #### [facility] [place] [facility] [address] [place] [address] Protein, Urine Negative Normal Negative [facility] Comment on above: Performed By: #### 5 7019-2 #### [facility] [place] [facility] [address] [place] [address] RBC LM.HPF (Urine sed) [#/Area] 4 /[HPF] Normal 0-5 [facility] Comment on above: Performed By: #### 5 7019-2 #### [facility] [address] [place] [address] Specific [place] Urine 1.015 Normal 1.002-1.030 [facility] Comment on above: Performed By: #### 5 7019-2 #### [facility] [address] [place] [address] Squamous Epithelial, Urine Many Abnormal None [facility] Comment on above: Performed By: #### 5 7019-2 #### [facility] [address] [place] [address] Urobilinogen, Urine Normal Normal Normal [facility] Comment on above: Performed By: #### 5 7019-2 #### [facility] [address] [place] [address] WBC LM.HPF (Urine sed) [#/Area] 4 /[HPF] Normal 0-5 [facility] Comment on above: Performed By: #### 5 7019-2 #### [facility] [address] [place] [address] Bacteria LM.HPF (Urine sed) [#/Area] Rare Abnormal None /HPF [facility] Bilirubin Ql (U) Negative Negative mg/dL [facility] Clarity (U) Hazy Abnormal Clear [facility] Color (U) Yellow Yellow [facility] [...] 6.0 [pH] 5.0 - 8.0 pH [facility] th Protein (U) [Mass/Vol] Negative Negative mg/dL [facility] RBC LM.HPF (Urine sed) [#/Area] 4 /[HPF] [facility] Specific gravity (U) [Rel density] 1.015 1.002 - 1.030 [facility] (U) [Mass/Vol] Normal Normal mg/dL [facility] WBC LM.HPF (Urine sed) [#/Area] 4 /[HPF] [facility] ED Pat [place] 05-07-2019 ED [facility] Emergency Department [address] [place], [place] [address] Emergency Department Discharge Instructions HO [...] and Patient Education(s) : Work Release (CO-W) [place] (Custom); Blank Instruction (CUSTOM) EMERGENCY SERVICES MEDICATION LIST Lista de Medicaciones de los Servicios de Emergencia Name HO SIMMS MRN (COL)-[id number] Acc# [id number] PLEASE READ THE FOLLOWING REGARDING YOUR MEDICATIONS [...] doses are changed, or new medications (including kmhe-bwl-ektogqt products) are added. If you have any [...] UNTIL YOU TALK TO YOUR DOCTOR None [facility] Emergency Department [address] [place], [place] [id number] Emergency Department Discharge Instructions Name: HO SIMMS Current Date: 05/07/2019 12:55:33 : 1995 12:00 PM Primary Physician: Physician, No PCP We would like to thank you for choosing [facility] for your emergency medical needs. We examined [...] health of those around you. Call the [place] [employer] at 2-076-HSAS-[place] or the [place] [employer] at 7-447-BEX-5406 for more information. High blood pressure: Your [...] deadly infections. Discuss this with your child's tire finisher, or Public Health Department. Your family practice doctor can determine if you need pneumonia or flu vaccine. [facility] Department can be reached at . Substance Abuse Program: Concerns with addiction to alcohol, benzodiazepines (Ativan or Xanax) and Opiates (Heroin, Percocet, OxyContin, Methadone or Fentanyl)? [facility] offers an inpatient Substance Abuse Program to help treat the symptoms associated with medical detoxification of addictive substances. The new program offers care for non- adults (18 and older) looking to break the chain to addictive chemicals. The Substance Abuse Program is a voluntary inpatient admission and it starts with a pre-screening phone call to a perinatal social worker. During the call, goals and objectives for recovery and how the patient will transition to outpatient care will be established. Please call [phone] to get help today. Domestic Violence: If [...] suicide hotline, anytime day or night, at 4-325-222-RJUG. Community Manager Commercial: You may be contacted by your local fire department for a follow up visit from a community mineral technologist. The community mineral technologist can help with a home safety check; follow up care, and general home care management. Pharmacy Information: Below is a list of 24 hour pharmacies that we are aware of. We suggest that you call the specific pharmacy for their hours before traveling to a location. Hours may vary on holidays. [facility] Pharm[facility] [address] [place] [address] [phone] [place] [address] [phone] [place] [address] [phone] [phone] [address] [place], [place] [phone] [address] [place] [address] [phone] [place] [address] [phone] Take all medications as directed. If you need prescription assistance, contact the following agencies: ?? [facility] for Prescription Assistance at or www.[employer].org ?? [place] at or www.[employer]Stat[employer], [employer]rHansen And Son.org ?? [employer] is a site with many valuable coupons Patient Education Materials HO SIMMS has been given the following patient education materials: [facility] Emergency Department [address] [place] [address] Work Excuse Form This notice verifies that [...] _ Date _ Time Provider Signature Normal [facility] ED Pat [facility] 03-02-2019 ED [facility] [address] [place] [id number] Emergency Department Discharge Instructions HO SIMMS , [...] Follow-up as needed Provider: Specialty: Address: Date: [facility] [phone] [facility] [address] (5) 5 to 7 days Comment: Call for an Appointment Provider: Specialty: Address: Date: Return to Emergency Department Follow-up as needed Laboratory Orders: None Ordered Radiology Orders: Name: Status: XR Clavicle Complete LT Completed XR Chest Inspiration/Expirat ion Completed XR Chest 1 View Completed Diagnostic Tests: None Ordered Procedure(s) and Patient Education(s) : [facility] Patient Education (CUSTOM); [place] - Clinic List - All (CUSTOM); Chest Wall Pain; Free Text Instruction (CUSTOM) EMERGENCY SERVICES MEDICATION LIST Lista de Medicaciones de los Servicios de Emergencia Name HO SIMMS MRN ([employer] [facility])-[id number] PLEASE READ THE FOLLOWING REGARDING YOUR MEDICATIONS [...] doses are changed, or new medications (including tedg-leh-ezaycga products) are added. If you have any [...] UNTIL YOU TALK TO YOUR DOCTOR None [place] [address] [place], [place] [address] Emergency Department Discharge Instructions Name: YANNIERICEMERY Zacarias Current Date: 03/02/2019 03:10:39 : 1995 12:00 PM Primary Physician: Physician, No PCP We would like to thank you for choosing [facility] for your emergency medical needs. We [...] health of those around you. Call the [place] [employer] at 9-874-SDHR-USA or the [place] Cancer [employer] at 1-288-JTD2347 for more information. High blood pressure: Your [...] deadly infections. Discuss this with your child's tire finisher, or Public Health Department. Your family practice doctor can determine if you need pneumonia or flu vaccine. [facility] Department can be reached at . Substance Abuse Program: Concerns with addiction to alcohol, benzodiazepines (Ativan or Xanax) and Opiates (Heroin, Percocet, OxyContin, Methadone or Fentanyl)? [facility] offers an inpatient Substance Abuse Program to help treat the symptoms associated with medical detoxification of addictive substances. The new program offers care for non- adults (18 and older) looking to break the chain to addictive chemicals. The Substance Abuse Program is a voluntary inpatient admission and it starts with a pre-screening phone call to a perinatal social worker. During the call, goals and objectives for recovery and how the patient will transition to outpatient care will be established. Please call [phone] to get help today. Domestic Violence: If [...] suicide hotline, anytime day or night, at 7-881-893-KJAF. Community Manager Commercial: You may be contacted by your local fire department for a follow up visit from a community mineral technologist. The community mineral technologist can help with a home safety check; follow up care, and general home care management. Pharmacy Information: Below is a list of 24 hour pharmacies that we are aware of. We suggest that you call the specific pharmacy for their hours before traveling to a location. Hours may vary on holidays. [facility] Pharmacy [address] [phone] [facility] [address] [place], [place] [phone] [place], [place] [address] [phone] [address], [place] [phone] [address], [place] [phone] [address] [place], [place] [phone] [address] [place] [address] [phone] Take all medications as directed. If you need prescription assistance, contact the following agencies: ?? Partnership for Prescription Assistance at or www.[employer].org ?? [place] at or www.MedStatix, LLCrx.org ?? www.[employer] is a site with many valuable coupons Patient Education Materials HO SIMMS has been given the following patient education materials: ~~ Did you know that there is a Health Center near you that can serve children and adults regardless of your income or ability to pay? Call today for an appointment at [facility] (site #1) [address] [place] [address] (Near [place] on [facility]) beside the [facility] for [facility] (site #2) [address] [place] [address] on the [email or web address] We provide health care for the ENTIRE FAMILY, including care, shots, well-child checkups, case management and nutrition counseling. Accepting new patients with or without health insurance We welcome all patients with Medicare, Medicaid, Caresource, Hazel, and commercial insurance. Sliding fee for those without insurance To schedule an appointment, call ~~ For patients referred to a [facility] for possible follow-up care Before you call [...] a variety of illnesses and injuries. However, [facility] are not able to serve all patients. [facility] cannot see patients: ?? Who are [...] when the patient is not the responsible libertarian. Not all types of care are available at all [facility] locations. Here is a list of [facility] locations and phone numbers, along with a brief description of the services they offer. [facility] - For General Medical Concerns Jain for All People [address] [id number] [facility] [address] [place], [place] [id number] [facility] [address] [place], [place] [id number] Friday - Friday 8am - 4pm [facility] [address] [place], [place] [id number] [facility] MAXILLOFACIAL PROSTHODONTIST Clinic [address] [place], [place] [id number] [facility] [address] [facility] [address] [place], [place] [id number] General medical [place] Outreach Mobile Coil Repair Technician Clinics - For all Clinics call [phone] [facility]* [address], [place] [address] [facility]/ [facility]* [address] [place], [place] [address] [facility] Sou Kitchen* [address] [place], [place] [address] [facility] [address] [place], [place] [address] [facility] [address] [place], [place] [address] [facility] 1675 [place], [place] [address] [facility] [address] [place], [place] [address] [facility] [facility] [address] [place], [place] [address] [facility]* [address] [place], [place] [address] [facility] [address] [place] [address] and Friday monthly 1-3pm *Denotes clinics where mental health services are provided on site. Clinic hours vary; unless otherwise noted, [facility] see patients by appointment only. Some clinics do not accept Medicare patients. In addition to the above, there are other similar clinics throughout [facility]. Several such clinics are listed on the back of this notice, for your convenience. Non-[facility] in [facility] supplies this information for reference only, and is not responsible for changes in locations, hours, or services. This information was accurate at the time of printing. [place] recommends checking all information listed here before choosing a clinic for your care. Call for hours, most clinics are by appointment only Primary [place] [phone] Primary [facility] [address] [place], [place] [address] [facility] [address], [place] [address] [facility] [place] 23[address] [place], [place] [address] [facility] [place] [address] [facility] [address]rd Floor [place], [place] [address] [facility] [place] [address] [place], [place] [address] [facility] [address] [facility], [address] [place] [address] [facility] Luis Angel Davies [address] [place], [place] [address] [facility] [address] [place], [place] [address] Primary [facility] Health [facility] 378[address] [place], [place] [address] [facility] Clinics Dental Clinic [address] [phone] Women[facility] Services N118 [facility] [address] [phone] Optometry Clinic [address] [address] [facility] 35[address] [place], [place] [address] [place] Insure/Medicaid Clinics Dr. John Conti [address] [address] For people employed or have some income With no insurance or those with Medicaid Only see patients on mornings. To schedule an appointment call: [phone] [facility] [address] [facility] [address] [place], [place] [address] [place] [facility] Family Practice Center Clinics [address] [place], [place] [address] [facility] Family Medicine [phone] [facility] [phone] [facility] Free [facility] [phone] [facility] [phone] Free Clinic [address] [facility] [address] [place], [place] [address] [facility] Primary Care Clinics [place] [address] [place], [place] [address] [facility] [address] [place], [place] [address] [place] [address] [place], [place] [address] [address] [facility] 2nd [place], [place] [address] [facility] 4560 [place], [place] [address] [facility] 1777 [place], [place] [address] [place] [address] [place], [place] [address] [place] [address], [place] [address] [facility] 140[address] [place], [place] [address] [place] [address] [place], [place] [address] [place] [address] [place], [place] [address] [facility] Close to Home [facility] [address] [facility] [address] [place], [place] [address] [facility] [address] [place], [place] [address]99 [facility] [address] [place], [place] [address] [place] [address] [facility] [address] [place], [place] [address] [address] [address] [place], [place] [address] 500 [facility] 3rd floor [place], [place] [address] [place] [address] [place], [place] [address] [place] [address] [place], [place] [address] [address] 275 [place], [place] [address] [place] [address] [place], [place] [address] [place] [address] [place], [place] [address] [place], [place] [address] [place], [place] [address] Non Hospital [facility] Clinics [facility] [address] [place], [place] [address] ext 1840 [facility] Health and Wellness [place] 14[address] [place], [place] [address] [phone] Immunizations, Tests, Health Screenings Call for times of clinics [facility] ([facility] [address]) [address] [place], [place] [address] Patients of all ages accepted- treatment of common ailments including: common cold, ear infections, abrasions, and sprains. [phone] Every Friday 6:30pm-8:30pm [facility] [address] [place], [place] [address] [facility] Various locations throughout [place] [phone] [facility] , [facility] and Mondays at 6pm [phone] Routine medical care at no charge including sports and school physicals, health screenings. Walk in [facility] [phone] or [phone] (toll free) Return for increasing pain, coughing [...] for the first 2 days. ???Only take zapv-drz-ypbuohn or prescription medicines for pain, discomfort, or [...] 11/03/2006 Document Revised: 01/25/2013 Document Reviewed: 01/29/2016 [employer] Patient Education ?2016 [employer] <><><><><><><><><>< ><><><><><><><><><> <><><><><><><><><>< ><><><><> Patient Visit Summary Signature YANNI HO Deann has been given the following list of patient education materials, prescriptions and follow-up instructions: YANNI Guaman SHYLEIGH M, have received the above patient education materials/instructi ons and have verbalized understanding: _ Date _ Time Patient Signature _ Date _ Time Provider Signature Normal [facility] XR Chest 1 Viewon 03-02-2019 XR [...] Transcribed by: KAREEM 03/02/2019 02:23 Technologist: Normal [facility] Comment on above: Order Comment: Later [...] Caleb Enriquez MD 03/02/2019 02:25 Transcribed by: [facility] 03/02/2019 02:23 Technologist: BP Alvarado [facility] XR Clavicle Complete LTon XR Clavicle [...] Caleb Enriquez MD 03/02/2019 02:25 Transcribed by: [facility] 03/02/2019 02:23 Technologist: BP Alvarado [facility] ED Pat Eduon 06-08-2018 ED Pat [facility] [address] [place], [place] [address] Emergency Department Discharge Instructions HO SIMMS , [...] los Servicios de Emergencia Name HO SIMMS [facility]# [id number] PLEASE READ THE FOLLOWING REGARDING YOUR MEDICATIONS [...] doses are changed, or new medications (including ljnv-wyc-vyclgdg products) are added. If you have any [...] UNTIL YOU TALK TO YOUR DOCTOR None [place] [id number] Emergency Department Discharge Instructions Name: JAG SIMMSELIDA Zacarias Current Date: 06/08/2018 17:33:10 : 1995 12:00 PM Primary Physician: Physician, PCP Unknown We would like to thank you for choosing [facility] for your emergency medical needs. We [...] emergency department. For language assistance please call [phone]. Instructions for obtaining X-rays: When following up [...] health of those around you. Call the [place] at 1-938-ZVZA-USA or the [employer] at 8-215-OCY-5427 for more information. High blood pressure: Your [...] deadly infections. Discuss this with your child's tire finisher, or Public Health Department. Your family practice doctor can determine if you need pneumonia or flu vaccine. The [facility] Department can be reached at . Domestic [...] suicide hotline, anytime day or night, at 2-770-501-CDRV. Community Manager Commercial: You may be contacted by your local fire department for a follow up visit from a community mineral technologist. The community mineral technologist can help with a home safety check; follow up care, and general home care management. Pharmacy Information: Below is a list of 24 hour pharmacies that we are aware of. We suggest that you call the specific pharmacy for their hours before traveling to a location. Hours may vary on holidays. [facility] [address] [place], [place] [address] [phone] [place], [place] [address] [phone] [address] [place], [place] [phone] [address] [place], [place] [phone] [address] [place], [place] [phone] [address] [place], [place] [phone] 1100 [place], [place] [phone] Take all medications as directed. If you need prescription assistance, contact the following agencies: ?? Partnership for Prescription Assistance at or www.pparx.org ?? [place] [facility] at or www.Work in Fieldstrx.org ?? [employer]NetSanity[employer]Comm is a site with many valuable coupons Patient Education Materials HO SIMMS has been given the following patient education materials: Please call the following number(s) and schedule an appointment with the Lice clinics. [facility] Lice Clinics [place], [place] Home Health Care Lice, Adult Lice [...] care provider will recommend a prescription or dfuj-gka-bgjxqqc rinse. ???Removing lice, eggs, and egg cases [...] 11/03/2006 Document Revised: 11/24/2015 Document Reviewed: 03/21/2015 [employer] Patient Education ?2016 [employer] <><><><><><><><><>< ><><><><><><><><><> <><><><><><><><><>< ><><><><> Patient Visit Summary Signature HO SIMMS has been given the following list of patient education materials, prescriptions and follow-up instructions: YANNI Guaman SHYLEIGH M, have received the above patient education materials/instructi ons and have verbalized understanding: _ Date _ Time Patient Signature _ Date _ Time Provider Signature Normal [facility] Vital Signs Date Time Vital Sign Value Performing Clinician Facility 01-03-2024 21:40-0500 Body temperature 96.7 [degF] [facility] 01-03-2024 21:40-0500 Diastolic blood pressure 98 mm[Hg] [facility] 01-03-2024 21:40-0500 Heart rate 78 /min [facility] 01-03-2024 21:40-0500 Respiratory rate 16 /min [facility] 01-03-2024 21:40-0500 SaO2% (BldA) [Mass fraction] 99 % [facility] 01-03-2024 21:40-0500 Systolic blood pressure 138 mm[Hg] [facility] 01-03-2024 21:14-0500 Body height 177.8 cm [facility] 01-03-2024 21:14-0500 Body mass index (BMI) [Ratio] 25.8 kg/m2 [facility] 01-03-2024 21:14-0500 Body weight 81.64 kg [facility] 09-22-2022 22:15-0500 Diastolic blood pressure 86 mm[Hg] Garrett Becerra MD Work Phone: [facility] 09-22-2022 22:15-0500 Heart rate 85 /min Garrett Becerra MD Work Phone: [facility] 09-22-2022 22:15-0500 SaO2% (BldA) [Mass fraction] 100 % Garrett Becerra MD Work Phone: [facility] 09-22-2022 22:15-0500 Systolic blood pressure 127 mm[Hg] Garrett Becerra MD Work Phone: [facility] 09-22-2022 20:32-0500 Respiratory rate 17 /min Garrett Becerra MD Work Phone: [facility] 09-22-2022 19:11-0500 Body height 175.3 cm Garrett Becerra MD Work Phone: [facility] 09-22-2022 19:11-0500 Body mass index (BMI) [Ratio] 20.67 kg/m2 Garrett Becerra MD Work Phone: [facility] 09-22-2022 19:11-0500 Body weight 63.5 kg Garrett Becerra MD Work Phone: [facility] 09-22-2022 17:24-0500 Body temperature 98.6 [degF] Garrett Becerra MD Work Phone: [facility] 01-18-2021 20:05-0500 BMI (Body Mass Index) 19.37 kg/m2 [facility] 01-18-2021 20:05-0500 Body Temperature 98.2 [degF] [facility] 01-18-2021 20:05-0500 Body weight 61.24 kg [facility] 01-18-2021 20:05-0500 BP Diastolic 91 mm[Hg] [facility] 01-18-2021 20:05-0500 BP Systolic 138 mm[Hg] [facility] 01-18-2021 20:05-0500 Height 177.8 cm [facility] 01-18-2021 20:05-0500 Pulse (Heart Rate) 100 /min [facility] 01-18-2021 20:05-0500 Pulse Oximetry 99 % [facility] 01-18-2021 20:05-0500 Respiratory Rate 18 /min Emilianopablo Esquivel [facility] Encounters Encounter Date Encounter Type Care Provider Facility Start: 01-03-2024 End: 01-03-2024 [facility] Start: 01-03-2024 End: 01-03-2024 Emergency department patient visit [facility] Work Phone: Start: 01-11-2023 End: 01-12-2023 Emergency department patient visit NO PCP PHYSICIAN [facility] Start: 09-22-2022 End: 09-23-2022 Emergency department patient visit GARRETT BECERRA [facility] Start: 09-22-2022 End: 09-22-2022 Emergency department patient visit Garrett Becerra MD Work Phone: [facility] Emergency Room Comment on above: Polysubstance abuse (CMS/HCC) (Primary Dx); Acute right-sided low back pain without sciatica; Lower abdominal pain; Bacterial vaginosis; Otalgia of both ears; Hypomagnesemia Start: 09-22-2022 End: 09-22-2022 Evaluation and management of inpatient Garrett Becerra MD Work Phone: [facility] Emergency [facility] Start: 01-18-2021 End: 01-18-2021 Emergency department patient visit PHYSICIAN [facility] Start: 01-18-2021 End: 01-18-2021 Emergency department patient visit Emiliano Esquivel Work Phone: [facility] Emergency Department Comment on above: Abscess (Primary [...] Td Vaccines (2 - Td or Tdap) [facility] Start: 01-03-2024 [facility] Start: 09-22-2022 Adolescent depressio n screening assessment Depression Screening [facility] Start: 09-22-2022 Hepatitis C screening Hepatitis C Sc reening [facility] Start: 09-22-2022 HIV screening HIV Screening [facility] Start: 09-22-2022 Social Influencers o f Health Screening Social Influencers of Health Screening [facility] Start: 07-18-2022 Influenza vaccination Influenza Vacc ine (#1) [facility] Start: 01-22-2021 End: 01-22-2021 Office Visit 01/22/2021 Office Visit Primary Care Keturah Whitley MD [facility] [address] [place] [address] [phone] [facility] [place] Start: 07-18-2020 Influenza vaccinatio n given Sequential Influenza Vaccine (#1) [facility] Start: 01-15-2017 Screening for malign ant neoplasm of cervix Cervical Cancer Screening: Pap Smear [facility] Start: 01-15-2014 Hepatitis C antibody , confirmatory test Hepatitis C Screening [facility] Start: 2012 COVID-19 Vaccine (1 of 2) COVI D-19 Vaccine (1 of 2) [facility] Start: 01-15-2011 HIV screening HIV Screening [facility] Start: 2008 Adolescent depressio n screening assessment Depression Screening (PHQ9) [facility] Start: 01-15-2007 HPV Vaccines (1 - 2- dose series) HPV Vaccines (1 - 2-dose series) [facility] Start: 01-15-2007 Vaccination for shira n papillomavirus HPV Vaccines (1 - 2-dose series) [facility] Start: 01-15-1999 History and physical examination, annual for health maintenance Wellness Visit [facility] Start: 1996 COVID-19 Vaccine (#1) COVID-19 Vacci ne (#1) [facility] Start: 1996 Hepatitis B Vaccines (1 of 3 - 3-dose series) Hepatitis B Vaccines (1 of 3 - 3-dose series) [facility] Start: 1996 Screening for malign ant neoplasm of cervix Pap Smear [facility] Start: 1996 Tetanus vaccination Tetanus: Every 1 0yrs [facility] Bacteria identified in Urine by Culture Culture urine Microbiology STAT 09/22/2022 8:32 PM EST [facility] End: 09-22-2022 Neisseria gonorrhoeae DNA [Presence] in Urine by MOE with probe detection [facility] Work Phone: Comment on above: STAT for 1 Occurrenc es starting 09/22/2022 until 09/22/2022 Patient Education ED Animal Bite (General) [facility] Work Phone: Immunizations Immunization Date Immunization Notes Care Provider [facility] 08-05-2013 influenza virus vacc ine, unspecified formulation Garrett Becerra MD Work Phone: [facility] Payers Date Payer Category Payer Medicaid [id number] 2024 Self-pay 2016 Unknown [id number] 1995 Unknown [id number] Unknown [id number] Social History Date Type Detail Facility Start: 01-18-2021 End: 09-22-2022 Tobacco smoking status NHIS Never smoker [facility] Start: 01-18-2021 Tobacco use and exposure Current user [facility] History of tobacco use Chews Tobacco [facility] Start: 01-18-2021 Alcohol intake Current non-dr clinical research monitor of alcohol (finding) [facility] Start: 1995 Sex Assigned At Not on file O hiWAeal Start: 09-12-2022 End: 09-22-2022 Exposure to SARS-CoV-2 (event) Not sure [facility] Start: 09-22-2022 Tobacco use and exposure Smokeless tobacco non-user [facility] Start: 09-22-2022 Alcohol intake Lifetime non-d johnna (finding) [facility] Start: 01-03-2024 Tobacco smoking stat us NHIS Unknown if ever smoked [facility] Start: 1995 Sex Assigned At Female W [facility] Discharge summary 01-03-2024 Note Date & Type Note Facility 01-03-2024 Discharge summary Note Date/Time January 03, 2024 9:28pm [facility] Medical Records Department [address] [place] [address] Emergency Department Summary 01/03/24 MR#: [id number] Acct: [id number] Name: HO SIMMS Rep #:[id number] : [...] dog is up-to-date with vaccines including rabies. [facility] <SAUL Chavez - Last Filed: 01/03/24 21:33> [facility] Medical History (Updated 01/03/24 @ 21:31 by [...] <SAUL Chavez - Last Filed: 01/03/24 21:33> [facility] Narrative Medical decision making narrative: Patient presenting [...] Haddad MD - Last Filed: 01/03/24 21:38> [facility] Narrative Medical decision making narrative: Patient presenting [...] problems, contact your Primary Care Provider. Call [facility] ([phone]) or report to the closest Emergency Room. Call 911 if necessary. 01/03/242137 <Electronically signed by Son Haddad MD> Cosigner Signature (if applicable): 01/03/242132 <Electronically signed by Nahomy HUGHES> CC: ~ Signed [facility] Work Phone: History of Present illness Narrative 09-22-2022 Garrett Becerra MD - 09/22/2022 5:20 PM EST Note Date & Type Note Facility 09-22-2022 History of Presen t illness Narrative [facility] Emergency Department Note History of Present [...] Urine Yellow Clarity, Urine Hazy (*) Specific [place] Urine 1.015 pH, Urine 6.0 Leukocytes, Urine [...] Procedure Abnormality Status --------- ------ CBC auto differential[[id number]] Abnormal Final result Please view results for [...] MD Impression Final diagnoses: [F19.10] Polysubstance abuse (CMS/[facility]) [M54.50] Acute right-sided low back pain without sciatica [R10.30] Lower abdominal pain [N76.0, B96.89] Bacterial vaginosis [H92.03] Otalgia of both ears [E83.42] Hypomagnesemia Garrett Becerra MD 09/22/22 [id number] Garrett Becerra MD 09/22/22 [id number] documented in this encounter [facility] Evaluation note Note Date & Type Note Facility Evaluation note Diagnosis Polysubstance abuse ([facility])- Primary Other, mixed, or unspecified nondependent drug abuse, unspecified Acute right-sided low back pain without sciatica Lower abdominal pain Abdominal pain, other specified site Bacterial vaginosis Unspecified vaginitis and vulvovaginitis Otalgia of both ears Hypomagnesemia Disorders of magnesium metabolism documented in this encounter [facility] Evaluation note Note Date & Type Note Facility Evaluation note No assessment information availa ble [facility] Work Phone: Hospital Discharge instructions Attachments Note Date & Type Note Facility Hospital Discharge instructions The following attachments cannot be sent through Care Everywhere.Substance Use Disorder (Vietnamese)Bacterial Vaginosis (Vietnamese)documented in this encounter [facility] Discharge instructions Note Date & Type Note Facility Hospital Discharge instructions Additional Instructions Take antibiotics as directed, return for any worsening of your symptoms. 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 Advance Directives and Livin g Will 01/18/2021 8:38 PM Advance Directive Response Recorded Date/ Time Living Will No January 03 9:39pm Power of Getterer No January 03, 2024 9:39pm Hospital Course Note EMERGENCY DEPARTMENT DISCHAR GE SUMMARY PATIENT NAME:HO SIMSM MRN: [id number] AGE: 23 Years SEX: Female PHONE:[phone] DOS: 06/08/2018 4:31 PM : 1995 ATTENDING [...] NAME:HO SIMMS AGE: 24 Years SEX: Female PHONE:[phone] DOS: 05/07/2019 12:15 PM : 1995 ATTENDING [...] at 11:00 am with [facility] [address] [id number] Please arrived 15 minute early, If your unable to make the appointment, please call and reschedule. * Additional Instructions* Emiliano Esquivel MD - 01/18/2021 We made a new patient appointment for you on FridayJanuary 22 at 11:00 am [facility] [address] [address] Please arrived 15 minute early, If your unable to make the appointment, please call and reschedule. Please follow up with your family doctor or one of your choosing. You may find a provider through the [facility] Physician Referral Service by calling [phone] ([phone]) or by visiting [email or web address] Thank you for allowing us the opportunity [...] sent through Care Everywhere. * Abscess: Skin (Vietnamese) documented in this encounter Assessments Diagnosis Abscess- Primary Cellulitis and abscess of unspecified site Encounter for incision and drainage procedure Chief Complaint and Reason for Visit Chief Complaint DOG BITE Additional Source Comments INFORMATION SOURCE (unrecogn ized section and content) DATE CREATED AUTHOR 05/22/2019 [facility] DATE CREATED AUTHOR AUTHOR'S ORGANIZ ATION 01/25/2021 [facility] DATE CREATED AUTHOR AUTHOR'S ORGANIZ ATION 01/12/2023 [facility] DATE CREATED AUTHOR AUTHOR'S ORGANIZ ATION 01/07/2024 [facility] Reason for Visit (unrecogniz ed section [...] Care Teams (unrecognized sec tion and content) Branch Service Leader Relationship Specialty Start Date End Date Physician, [...] BE BASED ON THE PRIMARY CLINICAL RECORDS. [employer] provides no warranty or guarantee of the accuracy or completeness of information in this document.
[2025-08-21] MEDS: Lactated Ringers 1,000 ML 50 ML IV (09:00)
[2025-08-21 09:25] LABS: Hematocrit 37.0 % (37-47); Hemoglobin 13.1 g/dL (12.0-15.0); Immature Granulocytes Count 0.140 X10^3/uL (0.0-0.0); Mean Corp Hgb Conc 35.4 g/dL (32-36); Mean Corpuscular Volume 85.5 fL (81-99); Mean Platelet Vol. 10.8 fl (6.2-12.0); NRBC Flagged by Analyzer 0 % (0-5); Platelet Count 240 K/mm3 (150-450); RBC Distribution Width CV 12.0 % (11.6-14.6); RBC Distribution Width SD 37.7 fl (35.1-43.9); Red Blood Count 4.33 M/mm3 (4.2-5.4); White Blood Count 13.4 K/mm3 (4.4-11.0)
[2025-08-21] MEDS: Oxytocin 15 Units/NS 250ml 15 UNITS/250 ML IV.SOLN 2 UNITS IV (10:16)
[2025-08-21 10:29] LABS: Barbiturate Urine NEGATIVE (< 200 ng/mL); Benzodiazepine Urine NEGATIVE (< 200 ng/mL); PCP Urine NEGATIVE (< 25 ng/mL); THC Urine PRESUMPTIVE POSITIVE (< 50 ng/mL)
[2025-08-21 10:36] LABS: Syphilis Antibodies Nonreactive (Nonreactive)
[2025-08-21 10:39] LABS: Hepatitis C Antibody Nonreactive (Nonreactive)
--- NOTE | 2025-08-21 10:54 | PCM.HP.OB ---
HPI - General General Date of Admission: 08/21/25 Date of Service: 08/21/25 Chief Complaint: 40-Week Intrauterine with Spontaneous Rupture Membranes. HPI Narrative ROD LIAO, is a 30 F G1, P0 who presents to labor and delivery earlier this morning with possible rupture membranes with resultant positive ROM test. She went home AGAINST MEDICAL ADVICE but returned for continued labor. She reports that she had normal care in [place] but decided to return home for delivery to have family support. She now presents in labor to our unit. Maternal Data Information Gestational age: 40+ weeks by ultrasound [facility] Medical History (Updated 08/21/25 @ 11:[address] Luis Angel Cohen MD) Dog bite Home Medications ?Medication ?Instructions ?Recorded ?Last Taken ?Type vit no.95-ferrous 1 tab PO DAILY 08/21/25 08/20/25 10:00 History fumarate 28 mg-folic acid 800 mcg tablet () Allergy/AdvReac Type Severity Reaction Status Date / Time No Known Allergies Allergy Verified 08/21/25 00:00 Social History Smoking Status: Never smoker History Elective abortions Hx Para 0 Spontaneous abortions Hx # Term Pregnancies Ectopic pregnancies Hx # Pregnancies Multiple births # of living children Vital Signs Vital Signs Vital Signs: 08/21/25 08:44 08/21/25 08:44 08/21/25 08:46 Temperature Temperature Source Temporal Pulse Rate 72 Respiratory Rate Blood Pressure 131/82 H BP Systolic 131 BP Diastolic 82 08/21/25 08:46 08/21/25 08:46 08/21/25 09:50 Temperature 97.8 F Temperature Source Temporal Pulse Rate Respiratory Rate 16 Blood Pressure BP Systolic BP Diastolic 08/21/25 09:50 08/21/25 09:50 08/21/25 09:51 Temperature 97.2 F L Temperature Source Pulse Rate Respiratory Rate 16 Blood Pressure 135/81 H BP Systolic 135 BP Diastolic 81 08/21/25 09:51 Temperature Temperature Source Pulse Rate 70 Respiratory Rate Blood Pressure BP Systolic BP Diastolic Weight Weight: 228 lb Body Mass Index (BMI) 32.7 Physical Exam Const alert, oriented x3 and no apparent distress Constitutional Narrative: Size appropriate for gestational age General Appearance: cooperative and comfortable Exam Limitations: no limitations HEENT normocephalic Neck full ROM Resp normal respiratory effort and no retractions Cardio regular rate and regular rhythm Neuro moves all extremities Psych mental status grossly normal, affect normal, speech normal and activity/motor behavior normal Labs Labs Labs: Blood Type B POSITIVE Antibody Screen NEGATIVE Hct, (37-47) 37.0 % Hgb, (12.0-15.0) 13.1 g/dL Syphilis Total Ab, (Nonreactive) Nonreactive Hepatitis C Antibody, (Nonreactive) Nonreactive Assessment & Plan (1) Rupture of membranes with clear amniotic fluid: COMMENT: Term and uterine in early labor with spontaneous rupture membranes. Routine care in [place]. Will augment with Pitocin. Expect spontaneous vaginal delivery.
[2025-08-21] MEDS: fentaNYL-bupivacaine (epidural) 100 ML BAG EPIDURAL ×2 (19:30→23:58)
[2025-08-21] MEDS: LACTATED RINGERS 500 ML 999 ML IV (20:25)
[2025-08-21] MEDS: Lactated Ringers 1,000 ML 200 ML IV (23:07)
[2025-08-22] VITALS (45 sets, daily range): BP systolic 86–138; BP diastolic 49–91; PULSE 64–92; RESP 14–18; TEMP 36.3–37; O2SAT 92–99
--- NOTE | 2025-08-22 00:40 | OB.VAGDELI_ITS ---
Vaginal Delivery Maternal Presentation Maternal Presentation: Spontaneous Rupture of Membranes Maternal Presentation: Early Labor with Spontaneous Rupture Membranes Type of Induction: Other (Pitocin augmentation.) Vaginal Delivery Information Procedure Performed: Spontaneous Vaginal Delivery Surgeon/Practitioner: Luis Angel Cohen Date of Procedure: 08/22/25 Pre-Procedure Diagnosis: Term Intrauterine with Rupture of Membranes Post-Procedure Diagnosis: Term Intrauterine with Rupture of Membranes Type of anesthesia: Epidural Estimated Blood Loss: 250 cc Time of Delivery: 00:27 Findings Description of procedure: Spontaneous vaginal delivery of a viable female with Apgars of 9/9 from an occiput anterior presentation with clear amniotic fluid and normal three- vessel placenta. No episiotomy or lacerations. Delivery physician: Luis Angel Cohen MD. Procedure findings: Viable female infant with Apgars of 9/9 and occiput anterior presentation with karyomegalic fluid and normal three-vessel placenta. Nuchal right arm. Presentation: Vertex Amniotic Membrane Rupture Type: Spontaneous Amniotic Fluid Description: Clear Placental Delivery Description: Spontaneous Placenta [facility]position: [facility] (Patient to take home with her.) Cord Vessel Description: 3 Vessels Cord Entanglement: None A Gender: Female (1 minute): 9 (5 minute): 9 Delayed Cord Clamping: Yes Post Vaginal Deli Medications given after delivery: IV Pitocin Episiotomy Description: None Laceration: None Complication Complications: No
[2025-08-22] MEDS: Oxytocin 15 Units/NS 250ml 15 UNITS/250 ML IV.SOLN 83 UNITS IV (01:00)
--- NOTE | 2025-08-22 04:40 | CASEMGMT ---
Social Work Assessment Labor and Delivery Unit Patient Address: [address] [place] [address] (This is address that is listed in MOB chart, this is where her mother resides and where MOB will be staying temporarily when discharged from hospital). Phone number: [phone] Date of Referral:? 08/21/25 Time of Referral:? 917 Referred By: Dr. Cohen Date of Intervention: ??08/22/25 Time of Intervention:? 1329 Reason for Referral:? substance abuse Sw completed chart review and acknowledges social work consult due to maternal substance use history. Sw presented to bedside and introduced self to mother of baby (BRII- Ho) and a visitor who was also present, whom MOB introduced as her mother. MOB stated that it was okay to complete assessment with her mother present, given confidential nature of conversation. Father of baby (FOB) Justin, was also present, he was sleeping in hospital bed. History obtained from: medical records, MOB and FOB Household composition: BRII reports that she is currently residing in [place] with KAYLA. MOB reports that KAYLA has his own home, denies any issues or concerns with housing, stating that it is safe and secure. - MOB states that she came to [place] to [place] her baby as this is where she is from and her family lives here. Patient's parent/guardian status:?MOB states she and FOB met one day when KAYLA was in [place] and they ran into each other at [facility]. MOB states that she gave him her number not thinking that he would call her. MOB states that they dated/ talked for 8 months and then she moved to [place] to live with him, and shortly after that she was . MOB denies domestic violence or intimate partner violence. - baby is first baby for both parents.? ? Medical History: ?BRII is 30 year old female who is 1, para 0- now 1 following labor and delivery of . BRII received spotty care from [facility]. Release of information obtained and medical records obtained indicate that BRII sought care on the dates of: 01/06/25, 01/18/25, 02/03/25, 02/10/25. While meeting with MOB she reported that care was consistent. Marii left voicemail for Zoom and awaiting a returned phone call to determine care received. MOB then informed Sw that she did not feel comfortable delivering at the hospital with the OB from [facility] because he wanted to do a cervical check when she was 37 weeks and not in labor, and then she explained that he wanted to schedule her delivery. Sw attempted to gather more information from MOB, as to what medical explanation was provided to her for wanting to schedule her delivery, and MOB states that the OB told her it was due to the OB's itinerary. Sw also questioning validation of this. - BRII presented to hospital on scrap wheeler of 08/21/25 (0512) due to gush of fluid and was informed that she is in labor and was advised to stay admitted to plan on labor and delivery. MOB stated that she wanted to go home and return to hospital later. Although OBGYN advised against this MOB signed out of hospital Against Medical Advice (AMA). MOB then returned to hospital later on in morning and ready to proceed with labor. - BRII delivered baby via vaginal delivery on 08/22/25 at 40 weeks gestation. Baby girl, named Lacy Jiang, was born weighing 6lb 6oz with apgars of 9 and 9 at one and five minutes of life respectfully. MOB reports that she is breast feeding, however staff report to sw that no one has seen her feed baby. has attempted to meet with MOB several times to help assess breast feeding and provide support/ education if necessary, however she has not called to inform them of feeds. Sw asked MOB as to why she has not allowed to assist her with nursing baby if she has intention on . Sw asked MOB if this is in any relation to a trauma response. Sw explained that if MOB does not want to help her with as a result of trauma, it would be beneficial for her let nursing staff or sw know this so that we can help her in different ways, so that we know her breast feeding journey is still set up for success whenever she is discharged from the hospital. MOB expressed understanding and intention to call for next feed. ?MOB also has not chosen or identified a follow up accountant machine processing yet. Educational Status:?BRII states that she graduated from high school and attended some college. MOB reports that she did require an IEP in school up until high school. MOB states that she struggled with large class sizes and did better attending an alternative school that was smaller and offered trade classes. MOB states that KAYLA did not graduate from high school, but she is not sure his highest grade completed.? Financial Status: Both parents are gainfully employed. 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 Infant Supplies:??MOB states that she obtained all necessary baby supplies, including: car seat, safe sleep space, clothes, diapers and wipes.? Childcare/Caregiver(s):? BRII will be the primary caregiver to baby. When both parents have returned to work, they have an older neighbor lady who is going to provide childcare. Transportation: Both parents have their armor reconnaissance vehicle driver?s license and reliable means of transportation, no barriers. ?? Programs/Agencies Involved: BRII is connected to insurance through [employer] for herself and baby through . MOB informed that she has thirty days to ensure that baby gets added to her insurance. MOB denies any other linkage to community resources that provide financial or mental health supports. ??? Children Services/Legal Issues:??MOB denies prior involvement with children services. Marii informed MOB that due to maternal THC use during , sw is mandated as a result of the [place] to make a referral to Children Services due to intrauterine drug exposure to her baby. BRII states that she understands, however she is extremely nervous for [place] children services to get involved. BRII reports that in [place] if a baby is exposed to THC during , they treat the parent just as they would if she had used a narcotic or opiate. ? -? KAYLA reports to marii that he is a felon and not allowed to have firearms, however he reports that he still does have firearms in the home. -? MOB informed sw that she does have legal involvement as well. She is currently on probation in lieu of treatment due to already going through an inpatient treatment program independently. Behavioral Health Issues: ??Mental Health History:?BRII states that she does not have any mental health diagnoses. Marii questioned MOB on that, due to MOB being admitted to an inpatient treatment facility. Marii stated that most commonly individuals who have a substance use history also have diagnoses of anxiety, depression, trauma, PTSD, etc.? BRII states ?Oh, that would make sense?, evasively and then did not identify any diagnoses, continued to equivocately answer the question. While laying on the bed, and chcf sleeping, KAYLA was listening in on the conversation, and sw pointed the conversation to KAYLA and asked him if he had any mental health diagnoses, to which KAYLA reported ?yep, all of them sound just right?. ? Substance Use History:?BRII admits to having a substance use history beginning at the age of 14, however when asked as to what her substances were that she would abuse, she would not identify them. BRII does report to entering inpatient treatment on her own accord several years ago while still residing in [place]. BRII admits to smoking THC during , with the lase use being on day of delivery, 08/21/25. KAYLA also has significant mental health history, however he would not disclose to sw what his substance history looked like, he informed sw that ?it is in the past, and baby girl is going to be well taken care of?. ?? Family History:?MOB denies family history of substance use or significant mental health history. ? Drug Screens: ??MOB urine screen on day of delivery was presumptive positive for THC. Baby urine screen was negative, and meconium results are still pending. *Note that maternal urine screen was positive for fentanyl, however this is a result of having an epidural during labor, and this is also why baby?s urine screen was presumptive positive for fentanyl. Family/Social Stressors:? MOB informed sw that she is nervous to have [place] [facility] Services called on her. Sw explained to MOB that the best thing that she can do is work with them and be honest and respectful. Sw explained that they have a job to do, and she just needs to focus on being the best version of her in order to be the best mom for her baby. Sw explained that being cooperative will end their involvement sooner. Support Systems: BRII states that KAYLA and her mom and other family members are her biggest supports. Depression/Shaken Baby/Safe Sleeping:? Marii educated MOB on signs and symptoms of baby blues and depression and anxiety. Sw explained to MOB that due to her mental health and substance use history she is more at risk for experiencing these mental health symptoms during her period. BRII reports that her baby was ?super chill? during her , and so far she has been ?chill? which has helped her feel really good since delivery. MOB reports that she has a lot of people that she can talk to. Sw asked MOB if she felt anxious, worried or down at all during her . MOB reports that she started to feel anxious prior to delivering the baby, which is why she wanted to go home for a little while before delivery. Sw asked MOB what type of coping skills she utilizes when she starts to feel anxious. MOB reports that she likes to be outside, camping or canoeing. Sw encouraged MOB to talk to her supports, and also encouraged MOB to talk to her OBGYN, or more importantly a mental health professional. Sw educated MOB on trauma and how our body can store trauma and it can resurface during period, as well as triggers and PTSD. Sw explained the importance of utilizing healthy and safe coping mechanisms opposed to seeking comfort from drugs or alcohol. MOB expressed understanding. ?Sw educated MOB on shaken baby prevention and ABCs of safe sleep space. MOB expressed understanding. ASSESSMENT:? MOB and baby admitted following labor and delivery. [place]OB is residing in [place], however chose to present to [place] to delivery baby which is where she is originally from and where he mother currently resides. BRII received spotty care in [place], and informed nursing staff and social work that there were several reasons she did not want to deliver in [place]. 1.) she did not want to deliver with ?those [facility] doctors there, and 2.) [place] has stricter laws regarding using THC during and she did not want to be criminalized. MOB has history of substance use, reports to attending inpatient treatment several years ago and has been sober since, aside from using THC as most recent as day of delivery. MOB urine screen was presumptive positive for THC, and baby?s was negative, her meconium is still pending. MOB denies mental health history or diagnoses, however when discussing this, she indicates that she ?probably does have some of those?. FOB present for portions of conversation as he was sleeping off and on in hospital bed. FOB reports to also having a substance use history, law involvement and reported a felony charge with unknown related reasons, and mental health diagnoses. baby is first baby for both parents. Bot parents are employed and have vehicles and also report to having all necessary baby items for baby. Parents report intention on returning to [place] when discharged from hospital, however when is unknown. MOB informed by sw that sw is mandated to make a referral to Children Services due to her substance use during . Marii informed MOB that due to her residing in [place] sw is planning on making the referral to the county in which she resides. When asked for MOB address, MOB refused to provide it. MOB has also requested to take home her placenta, and informed nursing staff that she wants to freeze it and when her baby is old enough she wants to feed it to her. Safe Plan of Care for related to substance use:? Education provided to MOB on ways that THC use while continuing to provide breast milk for baby impacts baby?s growth and development. MOB reports that she does not intend on continuing to use now that baby is here. PLAN:? Sw to make referral to county of residence in [place] if able to obtain MOB address. [facility] with maternal grandmother for the time being. . MOB and baby to be discharged when medically ready. Parents were provided literature regarding: signs and symptoms of baby blues and mood and anxiety disorders, Help Me Grow, shaken baby prevention, ABCs of safe sleep and a list of [facility] resources that are available for them should any needs present themselves. Gabo English, FINANCIAL SERVICES INTERN, INSURANCE ACCOUNT ASSISTANT
--- NOTE | 2025-08-22 05:30 | NURSING ---
Pt up to bathroom and missed hat, instructed to call when up the next time to void and catch void in hat to measure.
--- NOTE | 2025-08-22 08:02 | PN.OBGYN_ITS ---
Subjective Subjective Patient doing well without complaints. Tolerating PO. Ambulating and voiding without difficulty. Feeding well. Denies chest pain, shortness of breath, calf pain/swelling, fevers, chills, lightheadedness. Objective Data Objective Data Vital Signs: Vital Signs Temp Pulse Resp BP Pulse Ox O2 Del Method 97.4 F L 72 16 130/76 H 98 Room Air 08/22/25 08:00 08/22/25 08:00 08/22/25 08:00 08/22/25 08:00 08/22/25 08:00 08/22/25 08:00 Oxygen Delivery Method Room Air Weight: 228 lb Body Mass Index (BMI) 32.7 Intake & Output: Intake and Output for Last 24 Hours 08/20/25 08/21/25 08/22/25 23:59 23:59 23:59 Intake Total 1786.22 / 1786.22 616.67 / 616.67 Output Total 1300 / 1300 300 / 300 Balance 486.22 / 486.22 316.67 / 316.67 Lab / Micro Data 08/21/25 09:00 Labs: Laboratory Results - last 24 hr 08/21/25 09:00: WBC 13.4 H, RBC 4.33, Hgb 13.1, Hct 37.0, MCV 85.5, MCH 30.3, MCHC 35.4, RDW Std Deviation 37.7, RDW Coeff of Alec 12.0, Plt Count 240, MPV 10.8, Immature Gran % (Auto) 1.000 H, Neut % (Auto) 69.3, Lymph % (Auto) 19.7, Mcclain % (Auto) 8.1, Eos % (Auto) 1.5, Baso % (Auto) 0.4, Absolute Neuts (auto) 9.3 H, Absolute Lymphs (auto) 2.65, Nucleated RBC % 0, Syphilis Total Ab Nonreactive, Hepatitis C Antibody Nonreactive, Blood Type B POSITIVE, Antibody Screen NEGATIVE 08/21/25 09:30: Urine Opiates Screen NEGATIVE, U Buprenorphine Qual NEGATIVE, Ur Oxycodone Screen NEGATIVE, Urine Methadone Screen NEGATIVE, Urine Fentanyl Screen NEGATIVE, Ur Barbiturates Screen NEGATIVE, Ur Phencyclidine Scrn NEGATIVE, Ur Amphetamines Screen NEGATIVE, U Benzodiazepines Scrn NEGATIVE, Urine Cocaine Screen NEGATIVE, U Cannabinoids Screen PRESUMPTIVE POSITIVE 08/21/25 19:30: Urine Opiates Screen Cancelled, U Buprenorphine Qual Cancelled, Ur Oxycodone Screen Cancelled, Urine Methadone Screen Cancelled, Urine Fentanyl Screen Cancelled, Ur Barbiturates Screen Cancelled, Ur Phencyclidine Scrn Cancelled, Ur Amphetamines Screen Cancelled, U Benzodiazepines Scrn Cancelled, Urine Cocaine Screen Cancelled, U Cannabinoids Screen Cancelled ROS Constitutional Constitutional: Reports systems reviewed and no addt'l complaints, except as documented; Denies anorexia or headache(s) Cardiovascular Cardiovascular: Reports systems reviewed and no addt'l complaints, except as documented; Denies dizziness, dyspnea, nausea or tachypnea Respiratory/Chest Respiratory/Chest: Reports systems reviewed and no addt'l complaints, except as documented; Denies cough, dyspnea, shortness of breath at rest or tachypnea Gastrointestinal Gastrointestinal: Reports systems reviewed and no addt'l complaints, except as documented; Denies abdominal pain, constipation or nausea Genitourinary Genitourinary: Reports systems reviewed and no addt'l complaints, except as documented; Denies burning urination, difficulty urinating, dysuria, urinary frequency or urinary incontinence Musculoskeletal Musculoskeletal: Reports systems reviewed and no addt'l complaints, except as documented Integumentary Integumentary: Reports systems reviewed and no addt'l complaints, except as documented Neurologic Neurologic: Reports systems reviewed and no addt'l complaints, except as documented; Denies abnormal speech, dizziness or headache(s) Psychiatric Psychiatric: Reports systems reviewed and no addt'l complaints, except as documented Endocrine Endocrinology: Reports systems reviewed and no addt'l complaints, except as documented Hematologic/Lymphatic Hematologic/Lymphatic: Reports systems reviewed and no addt'l complaints, except as documented Physical Exam Const alert, oriented x3 and no apparent distress Neck full ROM Resp normal respiratory effort, normal air movement and no retractions Effort and Inspection: able to speak in complete sentences and symmetric chest movement GI soft to palpation Bladder / Kidney Exam: bladder normal to palpation Uterus Palpation: uterus fundus firm Extremity normal to inspection and full ROM Psych mental status grossly normal, thought process normal and cooperative Charges/Coding Multi Select Codes Urinary/Genital Urinary/Genital CPT Codes: No Charge
[2025-08-23 00:39] VITALS: BP 151/84; PULSE 75; RESP 16; TEMP 36.2; O2SAT 98
[2025-08-23 01:05] VITALS: BP 116/73
[2025-08-23 03:48] VITALS: BP 126/77; PULSE 74; RESP 16; TEMP 36.3; O2SAT 100
[2025-08-23 07:55] VITALS: BP 134/83; PULSE 70; RESP 16; TEMP 36.6; O2SAT 98
--- NOTE | 2025-08-23 08:30 | PCM.DC.SUM ---
Providers Date of Admission: 08/21/25 Primary Care Physician: No Primary Care Phys Reason For Visit: LABOR AND DELIVERY Diagnosis Discharge Diagnosis (1) Rupture of membranes with clear amniotic fluid: Status: Acute Medications at Discharge Home Medications vit no.95-ferrous fumarate 28 mg-folic acid 800 mcg tablet () 1 tab PO DAILY 08/21/25 Hospital Course Operations None Procedures - (vaginal delivery ) Summary of Care Provided Minutes Spent on Discharge: 15 Hospital Course: The patient was admitted to L&D on 08/21/25 for active labor management. She states that her water broke earlier in that day and she returned to L&D in severe pain. she received an epidural and delivered shortly after without lacerations or complications by Dr. Cohen. On day #1 she was recovering well and breast feeding her baby. Physical Exam Const alert, oriented x3 and no apparent distress General Appearance: cooperative and comfortable Resp normal respiratory effort Cardio regular rate GI normal to inspection, nondistended, normoactive bowel sounds GI Narrative: uterus is firm below umbilicus Palpation: soft Back/Spine no CVA tenderness and thoraco-lumbar ROM normal Extremity normal to inspection, no clubbing, cyanosis or edema, no calf tenderness and no pedal edema Psych mental status grossly normal, thought process normal, cooperative, affect normal, speech normal, activity/motor behavior normal, denies homicidal ideation and denies suicidal ideation Weight / BMI Weight Weight: 228 lb Body Mass Index (BMI) 32.7 ABG / Lab / Microbiology Data 08/21/25 09:00 D/C Instructions Discharge Activity: Return to Normal Activity, May Not Drive (while taking narcotic pain medications.) and May Shower May shower in (days): 1 May resume sexual activity in: 4-6 weeks Lifting Restrictions: 10 lbs Call your doctor if your incision/area has: Continuous Slow Oozing, Sudden Increased Bleeding, Increased Pain/ Swelling, Increased Redness and Foul Smelling Discharge Call your doctor if you observe: Fever of 101 or Higher, Using more than 1 pad per hour, Shortness of breath, Dizziness, Chest pain and Calf discomfort DC O2, CPAP, BIPAP Needs Home O2 Discharge instructions: No Please Follow Up With: Shelbi Leonard, When: Call [phone] to make an appointment with your doctor in 6 weeks. If you had elevated blood pressure or 4th degree laceration, you will need to be seen in 2 weeks. Meaningful Use Info Meaningful Use Meaningful Use Diagnoses (Choose all that apply): None applicable Discharge Plan Admission Admit Date/Time: 08/21/25 08:31 Primary Reason for Your Visit: vaginal delivery Attending Provider: Luis Angel Cohen Primary Care Provider: Care PhysicianBreanna Primary Discharge Orders/Prescriptions Prescriptions: No Action PNV no.95-ferrous fumarate-FA [] 28 mg iron- 800 mcg tablet 1 tab PO DAILY Referrals / Follow Up: Care Physician,No Primary [Primary Care Provider, Medical] Disposition Disposition (needs filled in before D/C Order can be placed): Home, Self Care
--- NOTE | 2025-08-23 08:41 | DCINST_ITS ---
Discharge Instructions DC O2, CPAP, BIPAP needs Home O2 Discharge instructions: No Dressing / Incision Discharge Activity: Return to Normal Activity, May Not Drive (while taking narcotic pain medications.) and May Shower May shower in (days): 1 May resume sexual activity in: 4-6 weeks Dressing / Incision Call your doctor if your incision/area has: Continuous Slow Oozing, Sudden Increased Bleeding, Increased Pain/ Swelling, Increased Redness and Foul Smelling Discharge Call your doctor if you observe: Fever of 101 or Higher, Using more than 1 pad per hour, Shortness of breath, Dizziness, Chest pain and Calf discomfort Follow Up Care Please Follow Up With: Shelbi Leonard DO When: Call [phone] to make an appointment with your doctor in 6 weeks. If you had elevated blood pressure or 4th degree laceration, you will need to be seen in 2 weeks. Test Results: Test results from this visit will be discussed in further detail at your follow- up appointment, if applicable. Discharge Plan Admission Admit Date/Time: 08/21/25 08:31 Primary Reason for Your Visit: vaginal delivery Attending Provider: Luis Angel Cohen Primary Care Provider: Care Physician,Breanna Primary Discharge Orders/Prescriptions Prescriptions: No Action PNV no.95-ferrous fumarate-FA [] 28 mg iron- 800 mcg tablet 1 tab PO DAILY Referrals / Follow Up: Care Physician,Breanna Primary [Primary Care Provider, Medical] Disposition Disposition (needs filled in before D/C Order can be placed): Home, Self Care
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
[2025-08-23 14:38] VITALS: PULSE 72; RESP 16; TEMP 36.6; O2SAT 97
[2025-08-23 14:54] VITALS: BP 106/77
== END 2025-08-23 15:30 | disposition home or self-care (01) | DRG 807 ==
PROVIDERS: Admitting Provider Obstetrics & Gynecology; Referring Provider Obstetrics & Gynecology; Visit Provider Obstetrics & Gynecology
DX: O42.02 Full-term premature rupture of membranes, onset of labor within 24 hours of rupture (principal); Z37.0 Single live birth; Z3A.40 40 weeks gestation of pregnancy
CPT/HCPCS: 59025; 59050; 80307; 85025; 86780; 86803; 86850; 86900; 86901; 99221; G0378; J2405